=== PATIENT | male | born 1935 | race Caucasian/White ===

== ENCOUNTER 2022-02-10 19:14 | Inpatient (IN) | payer OTHER, MEDICARE ==
[2022-02-10 20:46] LABS: BASO % 0.2 % (0-2.0); HEMATOCRIT 25.8 % (35.4-49); HEMOGLOBIN 8.7 GM/dL (11.7-16.9); MCH 30.6 pg (25.7-33.7); MCHC 33.6 g/dl (32.0-35.9); MEAN PLT VOLUME 7.4 fl (7.5-11.1); MONO % 6.4 % (3.8-10.2); NEUT % 84.4 % (42.8-82.8); PLATELET COUNT 234 10^3/uL (134-434); RBC 2.84 M/mm3 (4.00-5.60); RDW 14.1 % (11.9-15.9); WHITE BLOOD COUNT 10.2 K/mm3 (4.0-10.0)
[2022-02-10 21:12] LABS: ALBUMIN 3.2 g/dl (3.4-5.0); CALCIUM 8.9 mg/dL (8.5-10.1)
[2022-02-10 21:13] LABS: BLOOD UREA NITROGEN 46.6 mg/dL (7-18); MAGNESIUM 2.2 mg/dL (1.8-2.4)
[2022-02-10 21:15] LABS: CREATININE 2.7 mg/dL (0.55-1.3); PHOSPHOROUS 3.8 mg/dL (2.5-4.9)
[2022-02-10 21:17] LABS: BILIRUBIN,TOTAL 0.2 mg/dL (0.2-1)
[2022-02-10] MEDS ORDERED: INSULIN REGULAR HUMAN 100 UNITS/ML *VIAL IVPUSH ONE (21:45)
[2022-02-10] MEDS ORDERED: CALCIUM GLUCONATE 10% - 1,000 MG/10 ML VIAL IVPB ONE (21:45)
[2022-02-10] MEDS ORDERED: SODIUM CHLORIDE 0.9% 500 ML INFUS.BAG IV ONE (21:46)
[2022-02-10] MEDS ORDERED: SODIUM ZIRCONIUM CYCLOSILICATE (LOKELMA) 5 GM PACKET PO ONE (21:49)
[2022-02-10] MEDS ORDERED: SODIUM ZIRCONIUM CYCLOSILICATE (LOKELMA) 5 GM PACKET ONE (22:13)
[2022-02-10] MEDS ORDERED: CALCIUM GLUCONATE 10% - 1,000 MG/10 ML VIAL ONE (22:13)
[2022-02-10] MEDS ORDERED: INSULIN REGULAR HUMAN 100 UNITS/ML *VIAL ONE (22:14)
[2022-02-10 22:18] LABS: EPI CELLS 13 /uL (0-25.1); HYALINE CASTS 2 /uL (0-3.1); URINE APPEARANCE CLOUDY; URINE BACTERIA 31 /uL (0-1359); URINE BILIRUBIN NEGATIVE (NEGATIVE); URINE COLOR YELLOW; URINE GLUCOSE (UA) TRACE (NEGATIVE); URINE KETONE NEGATIVE (NEGATIVE); URINE LEUK ESTERASE 1+ (NEGATIVE); URINE NITRITE NEGATIVE (NEGATIVE); URINE PROTEIN 2+ (NEGATIVE); URINE UROBILINOGEN 0.2 mg/dL (0.2-1.0); URINE WBC 131 /uL (0-25.8)
[2022-02-10] MEDS ORDERED: CEFTRIAXONE 1,000 MG in DEXTROSE 5%-WATER - 50 ML IVPB ONE (22:21)
[2022-02-10] MEDS ORDERED: CEFTRIAXONE 1 GM/50 ML BAG ONE (22:58)
[2022-02-10 23:23] LABS: URINE RBC 922 /uL (0-23.9)
[2022-02-11] MEDS ORDERED: INSULIN SLIDING SCALE (NOVOLOG) 1 VIAL SQ SCH (07:00)
[2022-02-11] MEDS: INSULIN SLIDING SCALE (NOVOLOG) 1 VIAL SQ SCH ×4 (08:04→21:55)
[2022-02-11] MEDS ORDERED: AZITHROMYCIN 250 MG TABLET ONE (08:33)
[2022-02-11] MEDS ORDERED: LOSARTAN POTASSIUM 50 MG TABLET ONE (08:33)
[2022-02-11] MEDS ORDERED: METOPROLOL TARTRATE 50 MG TABLET (FP) ONE (08:34)
[2022-02-11] MEDS ORDERED: ISOSORBIDE MONONITRATE 60 MG TAB.SR.24H (FP) PO ONE (08:34)
[2022-02-11] MEDS ORDERED: amLODIPine BESYLATE 10 MG TABLET (FP) ONE (08:34)
[2022-02-11] MEDS ORDERED: CHOLECALCIFEROL (VIT D3) 1,000 UNIT (25 MCG) TABLET ONE (08:35)
[2022-02-11] MEDS ORDERED: CLOPIDOGREL BISULFATE 75 MG TABLET (FP) ONE (08:35)
[2022-02-11] MEDS ORDERED: CEFTRIAXONE 1 GM/50 ML BAG ONE (08:36)
[2022-02-11] MEDS ORDERED: ASPIRIN 81 MG CHEWABLE TABLETS ONE (08:36)
[2022-02-11] MEDS ORDERED: AZITHROMYCIN 500 MG TABLET PO ONE (10:00)
[2022-02-11] MEDS: CEFTRIAXONE 1 GM in DEXTROSE 5%-WATER - 50 ML IVPB SCH (11:00)
[2022-02-11] MEDS: METOPROLOL TARTRATE 50 MG TABLET (FP) PO SCH ×2 (11:00→21:45)
[2022-02-11] MEDS: CHOLECALCIFEROL (VIT D3) 1,000 UNIT (25 MCG) TABLET PO SCH (11:00)
[2022-02-11] MEDS: ASPIRIN 81 MG CHEWABLE TABLETS PO SCH (11:00)
[2022-02-11] MEDS: LOSARTAN POTASSIUM 50 MG TABLET PO SCH (11:00)
[2022-02-11] MEDS: amLODIPine BESYLATE 10 MG TABLET (FP) PO SCH (11:00)
[2022-02-11] MEDS: CLOPIDOGREL BISULFATE 75 MG TABLET (FP) PO SCH (11:00)
[2022-02-11] MEDS: FINASTERIDE 5 MG TABLET (FP) PO SCH (11:00)
[2022-02-11] MEDS: ISOSORBIDE MONONITRATE 30 MG TAB.SR.24H (FP) PO SCH (11:00)
[2022-02-11] MEDS ORDERED: ENOXAPARIN NA (PORCINE) 40 MG/0.4 ML DISP.SYRIN SQ SCH (12:30)
[2022-02-11] MEDS ORDERED: ENOXAPARIN NA (PORCINE) 40 MG/0.4 ML DISP.SYRIN SQ ONE (12:49)
[2022-02-11] MEDS ORDERED: FERROUS SO4 325 MG TABLET (FP) ONE (12:49)
[2022-02-11] MEDS ORDERED: HEPARIN NA (PORCINE) 5,000 UNITS/ML 1ML VIAL ONE ×2 (13:12→21:46)
[2022-02-11] MEDS: FERROUS SO4 325 MG TABLET (FP) PO SCH (13:24)
[2022-02-11] MEDS: HEPARIN NA (PORCINE) 5,000 UNITS/ML 1ML VIAL SQ SCH ×2 (13:24→21:55)
[2022-02-11 13:56] LABS: BLOOD UREA NITROGEN 43.6 mg/dL (7-18); CALCIUM 9.3 mg/dL (8.5-10.1)
[2022-02-11 13:57] LABS: ALBUMIN 3.3 g/dl (3.4-5.0)
[2022-02-11 14:00] LABS: CREATININE 2.4 mg/dL (0.55-1.3)
[2022-02-11 14:01] LABS: BILIRUBIN,TOTAL 0.5 mg/dL (0.2-1)
[2022-02-11 14:02] LABS: TOT PROT 7.3 g/dl (6.4-8.2)
[2022-02-11] MEDS ORDERED: MIRTAZAPINE 15 MG TABLET (FP) ONE (21:46)
[2022-02-11] MEDS: MIRTAZAPINE 30 MG TABLET PO SCH (21:55)
[2022-02-12] MEDS: HEPARIN NA (PORCINE) 5,000 UNITS/ML 1ML VIAL SQ SCH ×3 (06:10→22:44)
[2022-02-12] MEDS: INSULIN SLIDING SCALE (NOVOLOG) 1 VIAL SQ SCH ×4 (06:11→22:44)
[2022-02-12 06:29] VITALS: BMI 27.3
[2022-02-12 07:30] LABS: BASO % 0.3 % (0-2.0); EOS % 1.9 % (0-4.5); HEMATOCRIT 24.7 % (35.4-49); HEMOGLOBIN 8.5 GM/dL (11.7-16.9); LYMPH % 10.2 % (8-40); MCH 31.1 pg (25.7-33.7); MCHC 34.6 g/dl (32.0-35.9); MEAN CELL VOLUME 89.7 fl (80-96); MEAN PLT VOLUME 7.5 fl (7.5-11.1); MONO % 11.1 % (3.8-10.2); NEUT % 76.5 % (42.8-82.8); PLATELET COUNT 216 10^3/uL (134-434); RBC 2.75 M/mm3 (4.00-5.60); RDW 13.9 % (11.9-15.9); WHITE BLOOD COUNT 6.7 K/mm3 (4.0-10.0)
[2022-02-12 07:42] LABS: ALBUMIN 3.2 g/dl (3.4-5.0); BLOOD UREA NITROGEN 41.8 mg/dL (7-18); CALCIUM 8.5 mg/dL (8.5-10.1); MAGNESIUM 2.2 mg/dL (1.8-2.4)
[2022-02-12 07:45] LABS: CREATININE 2.4 mg/dL (0.55-1.3); PHOSPHOROUS 3.3 mg/dL (2.5-4.9)
[2022-02-12 07:46] LABS: BILIRUBIN,TOTAL 0.4 mg/dL (0.2-1); TOT PROT 6.6 g/dl (6.4-8.2)
[2022-02-12] MEDS ORDERED: cefTRIAXone SODIUM 1 GM VIAL ONE (10:11)
[2022-02-12] MEDS ORDERED: DEXTROSE 5%-WATER - 50 ML IVPB ONE (10:12)
[2022-02-12] MEDS: CHOLECALCIFEROL (VIT D3) 1,000 UNIT (25 MCG) TABLET PO SCH (10:17)
[2022-02-12] MEDS: CLOPIDOGREL BISULFATE 75 MG TABLET (FP) PO SCH (10:17)
[2022-02-12] MEDS: FINASTERIDE 5 MG TABLET (FP) PO SCH (10:17)
[2022-02-12] MEDS: ASPIRIN 81 MG CHEWABLE TABLETS PO SCH (10:18)
[2022-02-12] MEDS: ISOSORBIDE MONONITRATE 30 MG TAB.SR.24H (FP) PO SCH (10:18)
[2022-02-12] MEDS: METOPROLOL TARTRATE 50 MG TABLET (FP) PO SCH ×2 (10:18→22:43)
[2022-02-12] MEDS: AZITHROMYCIN 250 MG TABLET PO SCH (10:18)
[2022-02-12] MEDS: FERROUS SO4 325 MG TABLET (FP) PO SCH (10:18)
[2022-02-12] MEDS: amLODIPine BESYLATE 10 MG TABLET (FP) PO SCH (10:18)
[2022-02-12] MEDS: CEFTRIAXONE 1 GM in DEXTROSE 5%-WATER - 50 ML IVPB SCH (10:20)
[2022-02-12] MEDS ORDERED: MIRTAZAPINE 15 MG TABLET (FP) ONE (22:36)
[2022-02-12] MEDS: MIRTAZAPINE 30 MG TABLET PO SCH (22:45)
[2022-02-13] MEDS: INSULIN SLIDING SCALE (NOVOLOG) 1 VIAL SQ SCH ×4 (06:10→22:03)
[2022-02-13] MEDS: HEPARIN NA (PORCINE) 5,000 UNITS/ML 1ML VIAL SQ SCH ×3 (06:35→22:03)
[2022-02-13 07:40] LABS: BASO % 0.5 % (0-2.0); EOS % 2.3 % (0-4.5); HEMATOCRIT 24.8 % (35.4-49); HEMOGLOBIN 8.3 GM/dL (11.7-16.9); LYMPH % 12.8 % (8-40); MCH 30.7 pg (25.7-33.7); MCHC 33.6 g/dl (32.0-35.9); MEAN CELL VOLUME 91.3 fl (80-96); MEAN PLT VOLUME 7.7 fl (7.5-11.1); MONO % 9.4 % (3.8-10.2); PLATELET COUNT 208 10^3/uL (134-434); RBC 2.71 M/mm3 (4.00-5.60); RDW 14.1 % (11.9-15.9); WHITE BLOOD COUNT 6.1 K/mm3 (4.0-10.0)
[2022-02-13 07:57] LABS: CALCIUM 8.6 mg/dL (8.5-10.1)
[2022-02-13 08:01] LABS: CREATININE 2.4 mg/dL (0.55-1.3)
[2022-02-13 08:02] LABS: BILIRUBIN,TOTAL 0.3 mg/dL (0.2-1); TOT PROT 6.7 g/dl (6.4-8.2)
[2022-02-13] MEDS ORDERED: DEXTROSE 5%-WATER - 50 ML IVPB ONE (09:45)
[2022-02-13] MEDS ORDERED: cefTRIAXone SODIUM 1 GM VIAL ONE (09:45)
[2022-02-13] MEDS: METOPROLOL TARTRATE 50 MG TABLET (FP) PO SCH ×2 (09:48→22:02)
[2022-02-13] MEDS: CLOPIDOGREL BISULFATE 75 MG TABLET (FP) PO SCH (09:48)
[2022-02-13] MEDS: AZITHROMYCIN 250 MG TABLET PO SCH (09:48)
[2022-02-13] MEDS: amLODIPine BESYLATE 10 MG TABLET (FP) PO SCH (09:48)
[2022-02-13] MEDS: ISOSORBIDE MONONITRATE 30 MG TAB.SR.24H (FP) PO SCH (09:48)
[2022-02-13] MEDS: CEFTRIAXONE 1 GM in DEXTROSE 5%-WATER - 50 ML IVPB SCH (09:48)
[2022-02-13] MEDS: CHOLECALCIFEROL (VIT D3) 1,000 UNIT (25 MCG) TABLET PO SCH (09:48)
[2022-02-13] MEDS: FERROUS SO4 325 MG TABLET (FP) PO SCH (09:48)
[2022-02-13] MEDS: FINASTERIDE 5 MG TABLET (FP) PO SCH (09:48)
[2022-02-13] MEDS: ASPIRIN 81 MG CHEWABLE TABLETS PO SCH (09:48)
[2022-02-13] MEDS ORDERED: MIRTAZAPINE 15 MG TABLET (FP) ONE (21:37)
[2022-02-13] MEDS: MIRTAZAPINE 30 MG TABLET PO SCH (22:03)
[2022-02-14] MEDS: INSULIN SLIDING SCALE (NOVOLOG) 1 VIAL SQ SCH ×4 (06:45→21:25)
[2022-02-14] MEDS: HEPARIN NA (PORCINE) 5,000 UNITS/ML 1ML VIAL SQ SCH ×3 (06:46→21:20)
[2022-02-14 08:15] LABS: BASO % 0.4 % (0-2.0); HEMATOCRIT 25.6 % (35.4-49); HEMOGLOBIN 8.9 GM/dL (11.7-16.9); LYMPH % 8.8 % (8-40); MCHC 34.6 g/dl (32.0-35.9); MEAN CELL VOLUME 89.6 fl (80-96); MEAN PLT VOLUME 7.4 fl (7.5-11.1); MONO % 10.3 % (3.8-10.2); NEUT % 79.5 % (42.8-82.8); PLATELET COUNT 222 10^3/uL (134-434); RBC 2.86 M/mm3 (4.00-5.60); RDW 13.8 % (11.9-15.9); WHITE BLOOD COUNT 6.9 K/mm3 (4.0-10.0)
[2022-02-14 08:40] LABS: CALCIUM 8.6 mg/dL (8.5-10.1)
[2022-02-14 08:41] LABS: ALBUMIN 3.1 g/dl (3.4-5.0); BLOOD UREA NITROGEN 44.4 mg/dL (7-18)
[2022-02-14 08:44] LABS: CREATININE 2.4 mg/dL (0.55-1.3)
[2022-02-14 08:45] LABS: BILIRUBIN,TOTAL 0.8 mg/dL (0.2-1); TOT PROT 6.8 g/dl (6.4-8.2)
[2022-02-14] MEDS ORDERED: ACETAMINOPHEN 325 MG TABLET (FP) PO PRN (09:25)
[2022-02-14] MEDS ORDERED: cefTRIAXone SODIUM 1 GM VIAL ONE (09:30)
[2022-02-14] MEDS ORDERED: DEXTROSE 5%-WATER - 50 ML IVPB ONE (09:30)
[2022-02-14] MEDS: FERROUS SO4 325 MG TABLET (FP) PO SCH (09:40)
[2022-02-14] MEDS: CHOLECALCIFEROL (VIT D3) 1,000 UNIT (25 MCG) TABLET PO SCH (09:40)
[2022-02-14] MEDS: ASPIRIN 81 MG CHEWABLE TABLETS PO SCH (09:41)
[2022-02-14] MEDS: FINASTERIDE 5 MG TABLET (FP) PO SCH (09:41)
[2022-02-14] MEDS: ISOSORBIDE MONONITRATE 30 MG TAB.SR.24H (FP) PO SCH (09:41)
[2022-02-14] MEDS: AZITHROMYCIN 250 MG TABLET PO SCH (09:41)
[2022-02-14] MEDS: CLOPIDOGREL BISULFATE 75 MG TABLET (FP) PO SCH (09:42)
[2022-02-14] MEDS: CEFTRIAXONE 1 GM in DEXTROSE 5%-WATER - 50 ML IVPB SCH (09:42)
[2022-02-14] MEDS: amLODIPine BESYLATE 10 MG TABLET (FP) PO SCH (09:42)
[2022-02-14] MEDS: LOSARTAN POTASSIUM 50 MG TABLET PO SCH (09:42)
[2022-02-14] MEDS: METOPROLOL TARTRATE 50 MG TABLET (FP) PO SCH ×2 (09:42→21:19)
[2022-02-14] MEDS: LIDOCAINE 5% TOPICAL PATCH TP SCH (09:52)
[2022-02-14 12:23] LABS: URIC ACID 6.9 mg/dL (2.6-7.2)
[2022-02-14] MEDS ORDERED: MIRTAZAPINE 15 MG TABLET (FP) ONE (21:06)
[2022-02-14] MEDS: MIRTAZAPINE 30 MG TABLET PO SCH (21:20)
[2022-02-14] MEDS: LIDOCAINE PATCH REMOVAL MC SCH (21:20)
[2022-02-15] MEDS: HEPARIN NA (PORCINE) 5,000 UNITS/ML 1ML VIAL SQ SCH ×3 (06:09→22:12)
[2022-02-15] MEDS: INSULIN SLIDING SCALE (NOVOLOG) 1 VIAL SQ SCH ×4 (06:19→22:12)
[2022-02-15 08:09] LABS: BASO % 0.3 % (0-2.0); EOS % 1.9 % (0-4.5); HEMATOCRIT 22.8 % (35.4-49); HEMOGLOBIN 7.8 GM/dL (11.7-16.9); LYMPH % 13.8 % (8-40); MCH 30.7 pg (25.7-33.7); MCHC 33.9 g/dl (32.0-35.9); MEAN CELL VOLUME 90.4 fl (80-96); MEAN PLT VOLUME 7.5 fl (7.5-11.1); PLATELET COUNT 210 10^3/uL (134-434); RBC 2.53 M/mm3 (4.00-5.60); RDW 13.7 % (11.9-15.9); WHITE BLOOD COUNT 5.8 K/mm3 (4.0-10.0)
[2022-02-15 08:16] LABS: ALBUMIN 2.8 g/dl (3.4-5.0); BLOOD UREA NITROGEN 48.6 mg/dL (7-18); CALCIUM 8.4 mg/dL (8.5-10.1)
[2022-02-15 08:21] LABS: BILIRUBIN,TOTAL 0.3 mg/dL (0.2-1)
[2022-02-15 08:22] LABS: CREATININE 2.7 mg/dL (0.55-1.3)
[2022-02-15] MEDS ORDERED: cefTRIAXone SODIUM 1 GM VIAL ONE (09:04)
[2022-02-15] MEDS ORDERED: DEXTROSE 5%-WATER - 50 ML IVPB ONE (09:04)
[2022-02-15] MEDS: amLODIPine BESYLATE 10 MG TABLET (FP) PO SCH (09:16)
[2022-02-15] MEDS: ISOSORBIDE MONONITRATE 30 MG TAB.SR.24H (FP) PO SCH (09:16)
[2022-02-15] MEDS: FERROUS SO4 325 MG TABLET (FP) PO SCH (09:17)
[2022-02-15] MEDS: LOSARTAN POTASSIUM 50 MG TABLET PO SCH (09:17)
[2022-02-15] MEDS: METOPROLOL TARTRATE 50 MG TABLET (FP) PO SCH ×2 (09:17→22:12)
[2022-02-15] MEDS: CHOLECALCIFEROL (VIT D3) 1,000 UNIT (25 MCG) TABLET PO SCH (09:17)
[2022-02-15] MEDS: FINASTERIDE 5 MG TABLET (FP) PO SCH (09:17)
[2022-02-15] MEDS: CLOPIDOGREL BISULFATE 75 MG TABLET (FP) PO SCH (09:18)
[2022-02-15] MEDS: CEFTRIAXONE 1 GM in DEXTROSE 5%-WATER - 50 ML IVPB SCH (09:18)
[2022-02-15] MEDS: ASPIRIN 81 MG CHEWABLE TABLETS PO SCH (09:18)
[2022-02-15] MEDS: LIDOCAINE 5% TOPICAL PATCH TP SCH (09:36)
[2022-02-15] MEDS ORDERED: ALPRAZolam 0.25 MG TABLET PO PRN (10:00)
[2022-02-15] MEDS ORDERED: MIRTAZAPINE 15 MG TABLET (FP) ONE (21:48)
[2022-02-15] MEDS: MIRTAZAPINE 30 MG TABLET PO SCH (22:12)
[2022-02-15] MEDS: LIDOCAINE PATCH REMOVAL MC SCH (22:12)
[2022-02-16] MEDS ORDERED: ACETAMINOPHEN 325 MG TABLET (FP) PO PRN (00:25)
[2022-02-16] MEDS ORDERED: ALPRAZolam 0.25 MG TABLET PO PRN (00:25)
[2022-02-16] MEDS: LIDOCAINE PATCH REMOVAL MC SCH ×2 (03:41→21:27)
[2022-02-16] MEDS: HEPARIN NA (PORCINE) 5,000 UNITS/ML 1ML VIAL SQ SCH ×3 (06:02→21:27)
[2022-02-16] MEDS: INSULIN SLIDING SCALE (NOVOLOG) 1 VIAL SQ SCH ×4 (06:03→21:28)
[2022-02-16 08:03] LABS: BASO % 0.7 % (0-2.0); EOS % 3.7 % (0-4.5); HEMATOCRIT 22.8 % (35.4-49); HEMOGLOBIN 7.6 GM/dL (11.7-16.9); MCH 30.4 pg (25.7-33.7); MCHC 33.4 g/dl (32.0-35.9); MEAN CELL VOLUME 90.9 fl (80-96); MEAN PLT VOLUME 7.6 fl (7.5-11.1); MONO % 12.3 % (3.8-10.2); NEUT % 69.3 % (42.8-82.8); PLATELET COUNT 237 10^3/uL (134-434); RDW 13.7 % (11.9-15.9); WHITE BLOOD COUNT 5.7 K/mm3 (4.0-10.0)
[2022-02-16 08:24] LABS: CALCIUM 8.6 mg/dL (8.5-10.1); MAGNESIUM 2.4 mg/dL (1.8-2.4)
[2022-02-16 08:28] LABS: CREATININE 2.8 mg/dL (0.55-1.3); PHOSPHOROUS 5.8 mg/dL (2.5-4.9)
[2022-02-16] MEDS ORDERED: DEXTROSE 5%-WATER - 50 ML IVPB ONE (09:15)
[2022-02-16] MEDS ORDERED: cefTRIAXone SODIUM 1 GM VIAL ONE (09:15)
[2022-02-16] MEDS: CHOLECALCIFEROL (VIT D3) 1,000 UNIT (25 MCG) TABLET PO SCH (09:55)
[2022-02-16] MEDS: CLOPIDOGREL BISULFATE 75 MG TABLET (FP) PO SCH (09:55)
[2022-02-16] MEDS: LOSARTAN POTASSIUM 50 MG TABLET PO SCH (09:56)
[2022-02-16] MEDS: METOPROLOL TARTRATE 50 MG TABLET (FP) PO SCH ×2 (09:56→21:28)
[2022-02-16] MEDS: FINASTERIDE 5 MG TABLET (FP) PO SCH (09:57)
[2022-02-16] MEDS: ISOSORBIDE MONONITRATE 30 MG TAB.SR.24H (FP) PO SCH (09:57)
[2022-02-16] MEDS: FERROUS SO4 325 MG TABLET (FP) PO SCH (09:57)
[2022-02-16] MEDS: amLODIPine BESYLATE 10 MG TABLET (FP) PO SCH (09:57)
[2022-02-16] MEDS: ASPIRIN 81 MG CHEWABLE TABLETS PO SCH (09:58)
[2022-02-16] MEDS: LIDOCAINE 5% TOPICAL PATCH TP SCH (09:58)
[2022-02-16] MEDS: CEFTRIAXONE 1 GM in DEXTROSE 5%-WATER - 50 ML IVPB SCH (09:58)
[2022-02-16] MEDS ORDERED: INSULIN (NOVOLOG) ASPART 100 UNITS/ML 10ML VIAL ONE (13:12)
[2022-02-16] MEDS ORDERED: SODIUM CHLORIDE 0.45% 1,000 ML IV SCH (15:15)
[2022-02-16] MEDS ORDERED: MIRTAZAPINE 15 MG TABLET (FP) ONE (21:21)
[2022-02-16] MEDS ORDERED: MIRTAZAPINE 30 MG TABLET PO SCH (22:00)
[2022-02-16] MEDS ORDERED: LIDOCAINE PATCH REMOVAL MC SCH (22:00)
[2022-02-17] MEDS: HEPARIN NA (PORCINE) 5,000 UNITS/ML 1ML VIAL SQ SCH ×2 (05:35→15:39)
[2022-02-17] MEDS: INSULIN SLIDING SCALE (NOVOLOG) 1 VIAL SQ SCH ×3 (06:02→17:54)
[2022-02-17 08:34] LABS: BASO % 0.6 % (0-2.0); HEMATOCRIT 21.6 % (35.4-49); HEMOGLOBIN 7.4 GM/dL (11.7-16.9); LYMPH % 15.8 % (8-40); MCH 30.8 pg (25.7-33.7); MCHC 34.1 g/dl (32.0-35.9); MEAN CELL VOLUME 90.2 fl (80-96); MONO % 11.9 % (3.8-10.2); NEUT % 67.7 % (42.8-82.8); PLATELET COUNT 227 10^3/uL (134-434); WHITE BLOOD COUNT 5.1 K/mm3 (4.0-10.0)
[2022-02-17 08:59] LABS: CALCIUM 8.2 mg/dL (8.5-10.1)
[2022-02-17 09:00] LABS: BLOOD UREA NITROGEN 58.8 mg/dL (7-18); MAGNESIUM 2.4 mg/dL (1.8-2.4)
[2022-02-17 09:03] LABS: CREATININE 2.8 mg/dL (0.55-1.3); PHOSPHOROUS 5.4 mg/dL (2.5-4.9)
[2022-02-17] MEDS ORDERED: cefTRIAXone SODIUM 1 GM VIAL ONE (09:15)
[2022-02-17] MEDS: ASPIRIN 81 MG CHEWABLE TABLETS PO SCH (10:30)
[2022-02-17] MEDS: ISOSORBIDE MONONITRATE 30 MG TAB.SR.24H (FP) PO SCH (10:30)
[2022-02-17] MEDS: CLOPIDOGREL BISULFATE 75 MG TABLET (FP) PO SCH (10:31)
[2022-02-17] MEDS: FERROUS SO4 325 MG TABLET (FP) PO SCH (10:31)
[2022-02-17] MEDS: FINASTERIDE 5 MG TABLET (FP) PO SCH (10:31)
[2022-02-17] MEDS: CHOLECALCIFEROL (VIT D3) 1,000 UNIT (25 MCG) TABLET PO SCH (10:31)
[2022-02-17] MEDS: LIDOCAINE 5% TOPICAL PATCH TP SCH (10:31)
[2022-02-17] MEDS: CEFTRIAXONE 1 GM in DEXTROSE 5%-WATER - 50 ML IVPB SCH (10:40)
[2022-02-17] MEDS: LOSARTAN POTASSIUM 50 MG TABLET PO SCH (12:56)
[2022-02-17] MEDS: METOPROLOL TARTRATE 50 MG TABLET (FP) PO SCH (12:56)
[2022-02-17] MEDS: amLODIPine BESYLATE 10 MG TABLET (FP) PO SCH (12:56)
[2022-02-17 15:33] VITALS: BP 128/61; PULSE 61; TEMP 97.6
== END 2022-02-17 18:41 | disposition home health service (06) | DRG 194 ==
LOC: JER 19:14 → JERBED 23:13 → OBSVTOIN 02-11 00:26 → J4S 02-12 01:02 → J8W 02-16 00:23
PROVIDERS: ADMIT Internal Medicine
DX: J18.9 Pneumonia, unspecified organism (principal); N17.9 Acute kidney failure, unspecified; N39.0 Urinary tract infection, site not specified; I25.10 Atherosclerotic heart disease of native coronary artery without angina pectoris; E11.9 Type 2 diabetes mellitus without complications; Z95.1 Presence of aortocoronary bypass graft; E87.5 Hyperkalemia; R55 Syncope and collapse; I45.10 Unspecified right bundle-branch block; I44.4 Left anterior fascicular block; D64.9 Anemia, unspecified; R33.9 Retention of urine, unspecified; N40.1 Benign prostatic hyperplasia with lower urinary tract symptoms; Z79.84 Long term (current) use of oral hypoglycemic drugs; I12.9 Hypertensive chronic kidney disease with stage 1 through stage 4 chronic kidney disease, or unspecified chronic kidney disease; E11.22 Type 2 diabetes mellitus with diabetic chronic kidney disease; N18.9 Chronic kidney disease, unspecified; R31.9 Hematuria, unspecified; F32.A Depression, unspecified; F41.9 Anxiety disorder, unspecified; M25.522 Pain in left elbow; W19.XXXA Unspecified fall, initial encounter; Y93.89 Activity, other specified; Y92.230 Patient room in hospital as the place of occurrence of the external cause; Y99.8 Other external cause status
CPT/HCPCS: 36415; 70450-TC; 71045-TC-FY; 72125-TC; 72170-TC-FY; 73070-TC-LT-FY; 73200-TC-RT; 76775-TC; 76856-TC; 80048; 80053; 81003; 82533; 82550; 82570; 82728; 82962; 83036; 83540; 83550; 83735; 84100; 84133; 84300; 84443; 84484; 84550; 85025; 87086; 93005; 93010; 93306-TC; 93880-TC; 97116-GP; 97161-GP; 99285-25; C9803-CS; G0378; J1644; U0003; U0005

== ENCOUNTER 2022-02-26 10:15 | Inpatient (IN) | payer OTHER, MEDICARE ==
[2022-02-26] MEDS ORDERED: CALCIUM GLUCONATE 10% - 1,000 MG/10 ML VIAL IVPUSH ONE ×2 (11:04→13:49)
[2022-02-26] MEDS ORDERED: CALCIUM GLUCONATE 10% - 1,000 MG/10 ML VIAL ONE (11:06)
[2022-02-26] MEDS ORDERED: DEXTROSE 50%-WATER 25 GM/50 ML DISP.SYRIN ONE ×2 (11:09→13:51)
[2022-02-26] MEDS ORDERED: DEXTROSE 50%-WATER - 25 GM/50 ML VIAL IVPUSH ONE (11:26)
[2022-02-26 11:49] LABS: BASO % 0.4 % (0-2.0); EOS % 2.2 % (0-4.5); HEMATOCRIT 22.2 % (35.4-49); HEMOGLOBIN 7.4 GM/dL (11.7-16.9); LYMPH % 9.2 % (8-40); MCH 30.8 pg (25.7-33.7); MCHC 33.4 g/dl (32.0-35.9); MEAN CELL VOLUME 92.1 fl (80-96); MEAN PLT VOLUME 7.5 fl (7.5-11.1); MONO % 7.9 % (3.8-10.2); NEUT % 80.3 % (42.8-82.8); PLATELET COUNT 235 10^3/uL (134-434); RBC 2.41 M/mm3 (4.00-5.60); RDW 13.9 % (11.9-15.9); WHITE BLOOD COUNT 7.6 K/mm3 (4.0-10.0)
[2022-02-26 11:56] LABS: INR 1.09 (0.83-1.09); PROTHROMBIN TIME (PATIENT) 12.5 SEC (9.7-13.0)
[2022-02-26 12:13] LABS: CHLORIDE 108 mmol/L (98-107); SODIUM 135 mmol/L (136-145)
[2022-02-26 12:15] LABS: ALBUMIN 3.2 g/dl (3.4-5.0); BLOOD UREA NITROGEN 44.2 mg/dL (7-18); CALCIUM 8.4 mg/dL (8.5-10.1); CO2 21 mmol/L (21-32); GLUCOSE,RANDOM 56 mg/dL (74-106); MAGNESIUM 2.4 mg/dL (1.8-2.4)
[2022-02-26 12:18] LABS: CREATININE 2.7 mg/dL (0.55-1.3); PHOSPHOROUS 4.3 mg/dL (2.5-4.9); SGOT/AST 16 U/L (15-37); SGPT/ALT 18 U/L (13-61)
[2022-02-26 12:20] LABS: BILIRUBIN,TOTAL 0.3 mg/dL (0.2-1); TOT PROT 6.7 g/dl (6.4-8.2)
[2022-02-26 12:21] LABS: ALK PHOS 71 U/L (45-117)
[2022-02-26 12:23] LABS: N-TERMINAL BNP 1807.7 pg/ml (5-450)
[2022-02-26 12:30] LABS: ANION GAP 6 MMOL/L (8-16)
[2022-02-26] MEDS ORDERED: INSULIN REGULAR HUMAN 100 UNITS/ML *VIAL IVPUSH ONE (12:33)
[2022-02-26] MEDS ORDERED: DEXTROSE 50%-WATER - 25 GM/50 ML VIAL IVPUSH PRN (12:34)
[2022-02-26] MEDS ORDERED: SODIUM ZIRCONIUM CYCLOSILICATE (LOKELMA) 5 GM PACKET PO SCH (12:45)
[2022-02-26] MEDS ORDERED: SODIUM ZIRCONIUM CYCLOSILICATE (LOKELMA) 5 GM PACKET ONE ×2 (13:51→21:57)
[2022-02-26] MEDS ORDERED: SODIUM CHLORIDE 1,000 ML IV STA (17:20)
[2022-02-26] MEDS ORDERED: CEFTRIAXONE 1 GM in DEXTROSE 5%-WATER - 50 ML IVPB ONE (17:34)
[2022-02-26] MEDS ORDERED: AZITHROMYCIN IVPB 500 MG in DEXTROSE 5%-WATER - 250 ML IVPB ONE (17:35)
[2022-02-26] MEDS ORDERED: AZITHROMYCIN IVPB 500 MG/250 ML BAG IVPB ONE (17:51)
[2022-02-26] MEDS ORDERED: CEFTRIAXONE 1 GM/50 ML BAG ONE (17:51)
[2022-02-26 17:58] LABS: IRON SERUM 34 ug/dL (50-175); TOTAL IRON BINDING CAPACITY 316 ug/dL (250-450)
[2022-02-26 18:11] LABS: ALBUMIN 3.3 g/dl (3.4-5.0); CALCIUM 8.9 mg/dL (8.5-10.1)
[2022-02-26 18:12] LABS: BLOOD UREA NITROGEN 41.9 mg/dL (7-18)
[2022-02-26 18:14] LABS: CREATININE 2.6 mg/dL (0.55-1.3)
[2022-02-26 18:16] LABS: BILIRUBIN,TOTAL 0.4 mg/dL (0.2-1); TOT PROT 7.1 g/dl (6.4-8.2)
[2022-02-26 19:27] LABS: EPI CELLS 7 /uL (0-25.1); HYALINE CASTS 1 /uL (0-3.1); URINE APPEARANCE CLOUDY; URINE BACTERIA 11 /uL (0-1359); URINE BILIRUBIN NEGATIVE (NEGATIVE); URINE COLOR YELLOW; URINE GLUCOSE (UA) NEGATIVE (NEGATIVE); URINE KETONE NEGATIVE (NEGATIVE); URINE LEUK ESTERASE 1+ (NEGATIVE); URINE NITRITE NEGATIVE (NEGATIVE); URINE PROTEIN 2+ (NEGATIVE); URINE UROBILINOGEN 0.2 mg/dL (0.2-1.0); URINE WBC 338 /uL (0-25.8)
[2022-02-26 20:48] LABS: URINE RBC 526.2 /uL (0-23.9); YEAST MODERATE (NEGATIVE)
[2022-02-26] MEDS ORDERED: METOPROLOL TARTRATE 50 MG TABLET (FP) ONE (21:57)
[2022-02-26] MEDS ORDERED: MIRTAZAPINE 15 MG TABLET (FP) ONE (21:58)
[2022-02-26] MEDS ORDERED: SODIUM ZIRCONIUM CYCLOSILICATE (LOKELMA) 5 GM PACKET PO ONE (22:00)
[2022-02-26] MEDS: METOPROLOL TARTRATE 50 MG TABLET (FP) PO SCH (22:08)
[2022-02-26] MEDS: MIRTAZAPINE 30 MG TABLET PO SCH (22:08)
[2022-02-26] MEDS: ROSUVASTATIN CA 5 MG TABLET PO SCH (22:08)
[2022-02-26 23:45] LABS: HEMATOCRIT 26.9 % (35.4-49); HEMOGLOBIN 9.1 GM/dL (11.7-16.9); MCH 30.4 pg (25.7-33.7); MCHC 33.9 g/dl (32.0-35.9); MEAN CELL VOLUME 89.6 fl (80-96); MEAN PLT VOLUME 7.7 fl (7.5-11.1); PLATELET COUNT 270 10^3/uL (134-434); RDW 14.6 % (11.9-15.9); WHITE BLOOD COUNT 8.5 K/mm3 (4.0-10.0)
[2022-02-27 04:02] VITALS: BMI 28.6
[2022-02-27 07:06] LABS: HEMATOCRIT 27.2 % (35.4-49); HEMOGLOBIN 9.1 GM/dL (11.7-16.9); MCH 30.1 pg (25.7-33.7); MCHC 33.4 g/dl (32.0-35.9); MEAN CELL VOLUME 90.2 fl (80-96); MEAN PLT VOLUME 7.3 fl (7.5-11.1); PLATELET COUNT 250 10^3/uL (134-434); RBC 3.01 M/mm3 (4.00-5.60); RDW 14.6 % (11.9-15.9); WHITE BLOOD COUNT 8.1 K/mm3 (4.0-10.0)
[2022-02-27 07:31] LABS: CALCIUM 8.5 mg/dL (8.5-10.1)
[2022-02-27 07:32] LABS: ALBUMIN 2.8 g/dl (3.4-5.0); BLOOD UREA NITROGEN 36.4 mg/dL (7-18); MAGNESIUM 2.3 mg/dL (1.8-2.4)
[2022-02-27 07:35] LABS: CREATININE 2.3 mg/dL (0.55-1.3)
[2022-02-27 07:36] LABS: BILIRUBIN,TOTAL 0.4 mg/dL (0.2-1); TOT PROT 6.4 g/dl (6.4-8.2)
[2022-02-27] MEDS: METOPROLOL TARTRATE 50 MG TABLET (FP) PO SCH ×2 (09:25→21:43)
[2022-02-27] MEDS: TAMSULOSIN HCL 0.4 MG CAP PO SCH (09:25)
[2022-02-27] MEDS: CLOPIDOGREL BISULFATE 75 MG TABLET (FP) PO SCH (09:28)
[2022-02-27] MEDS: FINASTERIDE 5 MG TABLET (FP) PO SCH (09:28)
[2022-02-27] MEDS: SODIUM ZIRCONIUM CYCLOSILICATE (LOKELMA) 5 GM PACKET PO SCH (09:28)
[2022-02-27] MEDS: ISOSORBIDE MONONITRATE 30 MG TAB.SR.24H (FP) PO SCH (09:28)
[2022-02-27] MEDS: ASPIRIN 81 MG CHEWABLE TABLETS PO SCH (09:28)
[2022-02-27 13:29] LABS: HEMATOCRIT 27.3 % (35.4-49); HEMOGLOBIN 9.2 GM/dL (11.7-16.9); MCH 30.1 pg (25.7-33.7); MCHC 33.7 g/dl (32.0-35.9); MEAN CELL VOLUME 89.3 fl (80-96); MEAN PLT VOLUME 7.5 fl (7.5-11.1); PLATELET COUNT 260 10^3/uL (134-434); RBC 3.05 M/mm3 (4.00-5.60); RDW 14.8 % (11.9-15.9); WHITE BLOOD COUNT 7.9 K/mm3 (4.0-10.0)
[2022-02-27] MEDS ORDERED: MIRTAZAPINE 15 MG TABLET (FP) ONE (21:42)
[2022-02-27] MEDS: MIRTAZAPINE 30 MG TABLET PO SCH (21:43)
[2022-02-28] MEDS: FINASTERIDE 5 MG TABLET (FP) PO SCH (10:42)
[2022-02-28] MEDS: TAMSULOSIN HCL 0.4 MG CAP PO SCH (10:42)
[2022-02-28] MEDS: ISOSORBIDE MONONITRATE 30 MG TAB.SR.24H (FP) PO SCH (10:42)
[2022-02-28] MEDS: CLOPIDOGREL BISULFATE 75 MG TABLET (FP) PO SCH (10:42)
[2022-02-28] MEDS: ASPIRIN 81 MG CHEWABLE TABLETS PO SCH (10:42)
[2022-02-28] MEDS: METOPROLOL TARTRATE 50 MG TABLET (FP) PO SCH ×2 (10:42→22:09)
[2022-02-28] MEDS: SODIUM ZIRCONIUM CYCLOSILICATE (LOKELMA) 5 GM PACKET PO SCH (10:43)
[2022-02-28 12:58] LABS: BASO % 0.6 % (0-2.0); EOS % 3.2 % (0-4.5); HEMATOCRIT 26.1 % (35.4-49); HEMOGLOBIN 8.8 GM/dL (11.7-16.9); LYMPH % 8.8 % (8-40); MCH 30.2 pg (25.7-33.7); MCHC 33.7 g/dl (32.0-35.9); MEAN CELL VOLUME 89.7 fl (80-96); MEAN PLT VOLUME 7.5 fl (7.5-11.1); MONO % 8.3 % (3.8-10.2); NEUT % 79.1 % (42.8-82.8); PLATELET COUNT 249 10^3/uL (134-434); RBC 2.91 M/mm3 (4.00-5.60); RDW 14.5 % (11.9-15.9); WHITE BLOOD COUNT 6.5 K/mm3 (4.0-10.0)
[2022-02-28 13:16] LABS: ALBUMIN 2.8 g/dl (3.4-5.0); BLOOD UREA NITROGEN 34.5 mg/dL (7-18); CALCIUM 8.6 mg/dL (8.5-10.1)
[2022-02-28 13:19] LABS: CREATININE 2.5 mg/dL (0.55-1.3)
[2022-02-28 13:21] LABS: BILIRUBIN,TOTAL 0.3 mg/dL (0.2-1); TOT PROT 6.2 g/dl (6.4-8.2)
[2022-02-28] MEDS ORDERED: MIRTAZAPINE 15 MG TABLET (FP) ONE (22:03)
[2022-02-28] MEDS: MIRTAZAPINE 30 MG TABLET PO SCH (22:09)
[2022-03-01 07:43] LABS: BASO % 0.6 % (0-2.0); EOS % 3.8 % (0-4.5); HEMATOCRIT 24.5 % (35.4-49); HEMOGLOBIN 8.2 GM/dL (11.7-16.9); LYMPH % 14.1 % (8-40); MCH 29.9 pg (25.7-33.7); MCHC 33.5 g/dl (32.0-35.9); MEAN CELL VOLUME 89.1 fl (80-96); MEAN PLT VOLUME 7.5 fl (7.5-11.1); MONO % 12.2 % (3.8-10.2); NEUT % 69.3 % (42.8-82.8); PLATELET COUNT 226 10^3/uL (134-434); RBC 2.75 M/mm3 (4.00-5.60); RDW 14.5 % (11.9-15.9); WHITE BLOOD COUNT 5.9 K/mm3 (4.0-10.0)
[2022-03-01 07:59] LABS: ALBUMIN 2.6 g/dl (3.4-5.0); BLOOD UREA NITROGEN 36.6 mg/dL (7-18)
[2022-03-01 08:00] LABS: CALCIUM 8.4 mg/dL (8.5-10.1)
[2022-03-01 08:02] LABS: CREATININE 2.6 mg/dL (0.55-1.3)
[2022-03-01 08:03] LABS: BILIRUBIN,TOTAL 0.4 mg/dL (0.2-1)
[2022-03-01 08:04] LABS: TOT PROT 5.7 g/dl (6.4-8.2)
[2022-03-01] MEDS: TAMSULOSIN HCL 0.4 MG CAP PO SCH (09:32)
[2022-03-01] MEDS: FINASTERIDE 5 MG TABLET (FP) PO SCH (09:32)
[2022-03-01] MEDS: CLOPIDOGREL BISULFATE 75 MG TABLET (FP) PO SCH (09:32)
[2022-03-01] MEDS: ASPIRIN 81 MG CHEWABLE TABLETS PO SCH (09:32)
[2022-03-01] MEDS: ISOSORBIDE MONONITRATE 30 MG TAB.SR.24H (FP) PO SCH (09:32)
[2022-03-01] MEDS: SODIUM ZIRCONIUM CYCLOSILICATE (LOKELMA) 5 GM PACKET PO SCH (11:05)
[2022-03-01] MEDS: METOPROLOL TARTRATE 50 MG TABLET (FP) PO SCH ×2 (11:05→21:23)
[2022-03-01] MEDS ORDERED: MIRTAZAPINE 15 MG TABLET (FP) ONE (21:21)
[2022-03-01] MEDS: ROSUVASTATIN CA 5 MG TABLET PO SCH (21:23)
[2022-03-01] MEDS: MIRTAZAPINE 30 MG TABLET PO SCH (21:23)
[2022-03-02 07:22] LABS: EOS % 3.5 % (0-4.5); HEMATOCRIT 25.2 % (35.4-49); HEMOGLOBIN 8.5 GM/dL (11.7-16.9); LYMPH % 12.2 % (8-40); MCH 30.3 pg (25.7-33.7); MCHC 33.8 g/dl (32.0-35.9); MEAN CELL VOLUME 89.7 fl (80-96); MEAN PLT VOLUME 7.3 fl (7.5-11.1); MONO % 11.4 % (3.8-10.2); NEUT % 71.9 % (42.8-82.8); PLATELET COUNT 218 10^3/uL (134-434); RBC 2.81 M/mm3 (4.00-5.60); RDW 14.3 % (11.9-15.9); WHITE BLOOD COUNT 5.9 K/mm3 (4.0-10.0)
[2022-03-02] MEDS ORDERED: ONDANSETRON 4 MG/2 ML VIAL IVPUSH PRN (07:35)
[2022-03-02] MEDS ORDERED: ACETAMINOPHEN 325 MG TABLET (FP) PO PRN (07:35)
[2022-03-02] MEDS ORDERED: LIDOCAINE HCL/PF 2% SDV 5ML VIAL ONE (07:40)
[2022-03-02] MEDS ORDERED: PROPOFOL 20 ML ONE ×2 (07:40→07:44)
[2022-03-02] MEDS ORDERED: ETOMIDATE 20 MG/10 ML AMPUL IVPUSH ONE (07:40)
[2022-03-02 07:41] LABS: ALBUMIN 2.7 g/dl (3.4-5.0); BLOOD UREA NITROGEN 38.9 mg/dL (7-18); CALCIUM 8.1 mg/dL (8.5-10.1)
[2022-03-02 07:44] LABS: CREATININE 2.4 mg/dL (0.55-1.3)
[2022-03-02] MEDS ORDERED: LACTATED RINGERS SOLUTION 1,000 ML IV SCH (07:45)
[2022-03-02 07:46] LABS: BILIRUBIN,TOTAL 0.3 mg/dL (0.2-1); TOT PROT 6.1 g/dl (6.4-8.2)
[2022-03-02] MEDS ORDERED: LIDOCAINE HCL 2% JELLY 10 ML CARTRIDGE ONE (07:48)
[2022-03-02] MEDS ORDERED: LIDOCAINE HCL 2% JELLY 10 ML CARTRIDGE TP ONE (07:58)
[2022-03-02] MEDS: CLOPIDOGREL BISULFATE 75 MG TABLET (FP) PO SCH (09:36)
[2022-03-02] MEDS: METOPROLOL TARTRATE 50 MG TABLET (FP) PO SCH ×2 (09:36→22:00)
[2022-03-02] MEDS: TAMSULOSIN HCL 0.4 MG CAP PO SCH (09:36)
[2022-03-02] MEDS: FINASTERIDE 5 MG TABLET (FP) PO SCH (09:36)
[2022-03-02] MEDS: SODIUM ZIRCONIUM CYCLOSILICATE (LOKELMA) 5 GM PACKET PO SCH (09:37)
[2022-03-02] MEDS: ISOSORBIDE MONONITRATE 30 MG TAB.SR.24H (FP) PO SCH (09:37)
[2022-03-02] MEDS ORDERED: ASPIRIN 81 MG CHEWABLE TABLETS PO SCH (10:00)
[2022-03-02] MEDS ORDERED: cefTRIAXone SODIUM 1 GM VIAL ONE (11:32)
[2022-03-02] MEDS ORDERED: DEXTROSE 5%-WATER - 50 ML IVPB ONE (11:33)
[2022-03-02] MEDS: CEFTRIAXONE 1 GM in DEXTROSE 5%-WATER - 50 ML IVPB SCH (12:04)
[2022-03-02] MEDS ORDERED: SODIUM CHLORIDE 1,000 ML IV SCH (13:00)
[2022-03-02] MEDS ORDERED: MIRTAZAPINE 15 MG TABLET (FP) ONE (21:42)
[2022-03-02] MEDS: ROSUVASTATIN CA 5 MG TABLET PO SCH (21:59)
[2022-03-02] MEDS: MIRTAZAPINE 30 MG TABLET PO SCH (22:00)
[2022-03-03 07:34] LABS: HEMATOCRIT 24.7 % (35.4-49); HEMOGLOBIN 8.3 GM/dL (11.7-16.9); MCH 29.8 pg (25.7-33.7); MCHC 33.6 g/dl (32.0-35.9); MEAN CELL VOLUME 88.6 fl (80-96); MEAN PLT VOLUME 7.2 fl (7.5-11.1); PLATELET COUNT 226 10^3/uL (134-434); RBC 2.79 M/mm3 (4.00-5.60); RDW 14.8 % (11.9-15.9); WHITE BLOOD COUNT 5.5 K/mm3 (4.0-10.0)
[2022-03-03 07:44] LABS: CALCIUM 8.3 mg/dL (8.5-10.1)
[2022-03-03 07:45] LABS: BLOOD UREA NITROGEN 37.7 mg/dL (7-18)
[2022-03-03 07:48] LABS: CREATININE 2.2 mg/dL (0.55-1.3)
[2022-03-03] MEDS ORDERED: cefTRIAXone SODIUM 1 GM VIAL ONE (08:35)
[2022-03-03] MEDS ORDERED: DEXTROSE 5%-WATER - 50 ML IVPB ONE (08:35)
[2022-03-03] MEDS: CLOPIDOGREL BISULFATE 75 MG TABLET (FP) PO SCH (09:57)
[2022-03-03] MEDS: TAMSULOSIN HCL 0.4 MG CAP PO SCH (09:57)
[2022-03-03] MEDS: ISOSORBIDE MONONITRATE 30 MG TAB.SR.24H (FP) PO SCH (09:57)
[2022-03-03] MEDS: SODIUM ZIRCONIUM CYCLOSILICATE (LOKELMA) 5 GM PACKET PO SCH (09:58)
[2022-03-03] MEDS: METOPROLOL TARTRATE 50 MG TABLET (FP) PO SCH ×2 (09:58→21:28)
[2022-03-03] MEDS: CEFTRIAXONE 1 GM in DEXTROSE 5%-WATER - 50 ML IVPB SCH (09:58)
[2022-03-03] MEDS: FINASTERIDE 5 MG TABLET (FP) PO SCH (09:58)
[2022-03-03 16:08] LABS: SARS-CoV-2 NAA Not Detected (Not Detected)
[2022-03-03] MEDS ORDERED: MIRTAZAPINE 15 MG TABLET (FP) ONE (20:59)
[2022-03-03] MEDS: MIRTAZAPINE 30 MG TABLET PO SCH (21:27)
[2022-03-03] MEDS: ROSUVASTATIN CA 5 MG TABLET PO SCH (21:28)
[2022-03-04 05:59] VITALS: PULSE 81
[2022-03-04 07:53] LABS: MCH 30.2 pg (25.7-33.7); MCHC 33.4 g/dl (32.0-35.9); MEAN CELL VOLUME 90.5 fl (80-96); MEAN PLT VOLUME 7.4 fl (7.5-11.1); PLATELET COUNT 250 10^3/uL (134-434); RBC 2.98 M/mm3 (4.00-5.60); RDW 14.3 % (11.9-15.9); WHITE BLOOD COUNT 9.1 K/mm3 (4.0-10.0)
[2022-03-04 08:16] LABS: CALCIUM 8.4 mg/dL (8.5-10.1)
[2022-03-04 08:17] LABS: BLOOD UREA NITROGEN 44.9 mg/dL (7-18)
[2022-03-04 08:20] LABS: CREATININE 2.5 mg/dL (0.55-1.3)
[2022-03-04 08:27] VITALS: BP 155/69; TEMP 98.2
[2022-03-04] MEDS: TAMSULOSIN HCL 0.4 MG CAP PO SCH (09:00)
[2022-03-04] MEDS: SODIUM ZIRCONIUM CYCLOSILICATE (LOKELMA) 5 GM PACKET PO SCH (09:59)
[2022-03-04] MEDS: FINASTERIDE 5 MG TABLET (FP) PO SCH (09:59)
[2022-03-04] MEDS: METOPROLOL TARTRATE 50 MG TABLET (FP) PO SCH (09:59)
[2022-03-04] MEDS: ISOSORBIDE MONONITRATE 30 MG TAB.SR.24H (FP) PO SCH (09:59)
[2022-03-04] MEDS: CLOPIDOGREL BISULFATE 75 MG TABLET (FP) PO SCH (10:00)
[2022-03-05] MEDS ORDERED: CEFTRIAXONE 1 GM in DEXTROSE 5%-WATER - 50 ML IVPB ONE (08:00)
== END 2022-03-04 11:39 | disposition home or self-care (01) | DRG 687 ==
LOC: JER 10:15 → JERBED 17:08 → J4W 02-27 03:11 → JERBED 02-27 03:49 → J4W 02-27 03:51
PROVIDERS: ADMIT Internal Medicine
PROC: 30233N1 Transfusion of Nonautologous Red Blood Cells into Peripheral Vein, Percutaneous Approach (ICD-10-PCS; 2022-02-26)
PROC: 0TCB8ZZ Extirpation of Matter from Bladder, Via Natural or Artificial Opening Endoscopic (ICD-10-PCS; principal; 2022-03-02 07:30)
DX: D49.4 Neoplasm of unspecified behavior of bladder (principal); N17.9 Acute kidney failure, unspecified; D62 Acute posthemorrhagic anemia; E87.1 Hypo-osmolality and hyponatremia; N39.0 Urinary tract infection, site not specified; E87.5 Hyperkalemia; I25.10 Atherosclerotic heart disease of native coronary artery without angina pectoris; E88.81 Metabolic syndrome and other insulin resistance; I12.9 Hypertensive chronic kidney disease with stage 1 through stage 4 chronic kidney disease, or unspecified chronic kidney disease; E11.22 Type 2 diabetes mellitus with diabetic chronic kidney disease; N18.9 Chronic kidney disease, unspecified; N40.1 Benign prostatic hyperplasia with lower urinary tract symptoms; R33.8 Other retention of urine; F32.A Depression, unspecified; Z95.5 Presence of coronary angioplasty implant and graft; Z95.1 Presence of aortocoronary bypass graft
CPT/HCPCS: 36415; 36430; 71045-TC-FY; 76775-TC; 76856-TC; 80048; 80053; 81003; 82570; 82728; 82962; 83540; 83550; 83615; 83735; 83880; 84100; 84300; 84484; 85025; 85027; 85610; 85730; 86850; 86900; 86901; 86922; 93005; 93010; 94760; 97116-GP; 97162-GP; 99285-25; C9803-CS; P9058; U0003; U0005

== ENCOUNTER 2022-03-07 05:43 | Observation (INO) | payer OTHER, MEDICARE ==
[2022-03-07 07:47] LABS: EPI CELLS 6 /uL (0-25.1); HYALINE CASTS 1 /uL (0-3.1); PH,URINE 5.5 (5.0-8.0); URINE APPEARANCE TURBID; URINE BACTERIA 21 /uL (0-1359); URINE BILIRUBIN NEGATIVE (NEGATIVE); URINE COLOR RED; URINE GLUCOSE (UA) NEGATIVE (NEGATIVE); URINE KETONE NEGATIVE (NEGATIVE); URINE LEUK ESTERASE 3+ (NEGATIVE); URINE NITRITE NEGATIVE (NEGATIVE); URINE PROTEIN 3+ (NEGATIVE); URINE UROBILINOGEN 0.2 mg/dL (0.2-1.0); URINE WBC 9916 /uL (0-25.8)
[2022-03-07] MEDS ORDERED: CEFTRIAXONE 1,000 MG in DEXTROSE 5%-WATER - 50 ML IVPB ONE (08:05)
[2022-03-07] MEDS ORDERED: CEFTRIAXONE 1 GM/50 ML BAG ONE (08:36)
[2022-03-07 09:03] LABS: URINE RBC 11720.3 /uL (0-23.9); YEAST NEGATIVE (NEGATIVE)
[2022-03-07 09:39] LABS: BASO % 0.4 % (0-2.0); EOS % 0.1 % (0-4.5); HEMATOCRIT 25.1 % (35.4-49); HEMOGLOBIN 8.6 GM/dL (11.7-16.9); LYMPH % 2.6 % (8-40); MCH 30.8 pg (25.7-33.7); MCHC 34.3 g/dl (32.0-35.9); MEAN CELL VOLUME 89.8 fl (80-96); MEAN PLT VOLUME 7.4 fl (7.5-11.1); MONO % 9.8 % (3.8-10.2); NEUT % 87.1 % (42.8-82.8); PLATELET COUNT 218 10^3/uL (134-434); RBC 2.79 M/mm3 (4.00-5.60); RDW 14.3 % (11.9-15.9); WHITE BLOOD COUNT 9.3 K/mm3 (4.0-10.0)
[2022-03-07 09:44] LABS: ALBUMIN 3.1 g/dl (3.4-5.0); BLOOD UREA NITROGEN 59.5 mg/dL (7-18); CALCIUM 8.3 mg/dL (8.5-10.1)
[2022-03-07 09:48] LABS: CREATININE 3.5 mg/dL (0.55-1.3)
[2022-03-07 09:49] LABS: BILIRUBIN,TOTAL 0.6 mg/dL (0.2-1)
[2022-03-07 10:04] LABS: TOT PROT 6.6 g/dl (6.4-8.2)
[2022-03-07] MEDS: ISOSORBIDE MONONITRATE 30 MG TAB.SR.24H (FP) PO SCH (13:00)
[2022-03-07] MEDS: SODIUM ZIRCONIUM CYCLOSILICATE (LOKELMA) 5 GM PACKET PO SCH (13:00)
[2022-03-07] MEDS ORDERED: ISOSORBIDE MONONITRATE 60 MG TAB.SR.24H (FP) PO ONE (13:29)
[2022-03-07] MEDS ORDERED: SODIUM ZIRCONIUM CYCLOSILICATE (LOKELMA) 5 GM PACKET ONE (13:29)
[2022-03-07 15:05] VITALS: BMI 28.8
[2022-03-07 16:10] LABS: BLOOD UREA NITROGEN 57.1 mg/dL (7-18); CALCIUM 8.1 mg/dL (8.5-10.1); CREATININE 3.3 mg/dL (0.55-1.3)
[2022-03-07] MEDS: INSULIN SLIDING SCALE (NOVOLOG) 1 VIAL SQ SCH ×2 (16:59→21:42)
[2022-03-07] MEDS: METOPROLOL TARTRATE 50 MG TABLET (FP) PO SCH (22:20)
[2022-03-08] MEDS: INSULIN SLIDING SCALE (NOVOLOG) 1 VIAL SQ SCH ×4 (06:48→22:12)
[2022-03-08 08:28] LABS: HEMATOCRIT 22.1 % (35.4-49); HEMOGLOBIN 7.4 GM/dL (11.7-16.9); MCH 30.2 pg (25.7-33.7); MCHC 33.6 g/dl (32.0-35.9); MEAN PLT VOLUME 7.6 fl (7.5-11.1); PLATELET COUNT 207 10^3/uL (134-434); RBC 2.45 M/mm3 (4.00-5.60); RDW 13.9 % (11.9-15.9); WHITE BLOOD COUNT 6.2 K/mm3 (4.0-10.0)
[2022-03-08 08:48] LABS: CALCIUM 8.3 mg/dL (8.5-10.1)
[2022-03-08 08:49] LABS: BLOOD UREA NITROGEN 56.6 mg/dL (7-18)
[2022-03-08 08:52] LABS: CREATININE 3.1 mg/dL (0.55-1.3)
[2022-03-08] MEDS: TAMSULOSIN HCL 0.4 MG CAP PO SCH (11:48)
[2022-03-08] MEDS: METOPROLOL TARTRATE 50 MG TABLET (FP) PO SCH ×2 (11:48→22:20)
[2022-03-08] MEDS: ISOSORBIDE MONONITRATE 30 MG TAB.SR.24H (FP) PO SCH (11:49)
[2022-03-08] MEDS: SODIUM ZIRCONIUM CYCLOSILICATE (LOKELMA) 5 GM PACKET PO SCH (12:03)
[2022-03-08] MEDS: CLOPIDOGREL BISULFATE 75 MG TABLET (FP) PO SCH (12:16)
[2022-03-08 19:54] LABS: HEMATOCRIT 24.1 % (35.4-49); HEMOGLOBIN 7.9 GM/dL (11.7-16.9); MCH 29.9 pg (25.7-33.7); MEAN CELL VOLUME 90.4 fl (80-96); MEAN PLT VOLUME 7.4 fl (7.5-11.1); PLATELET COUNT 195 10^3/uL (134-434); RBC 2.66 M/mm3 (4.00-5.60); RDW 13.9 % (11.9-15.9); WHITE BLOOD COUNT 5.9 K/mm3 (4.0-10.0)
[2022-03-08] MEDS: MIRTAZAPINE 30 MG TABLET PO SCH (22:20)
[2022-03-08] MEDS: ROSUVASTATIN CA 5 MG TABLET PO SCH (22:20)
[2022-03-09] MEDS: INSULIN SLIDING SCALE (NOVOLOG) 1 VIAL SQ SCH ×4 (06:23→22:26)
[2022-03-09 08:09] LABS: HEMATOCRIT 25.2 % (35.4-49); HEMOGLOBIN 8.5 GM/dL (11.7-16.9); MCH 30.4 pg (25.7-33.7); MCHC 33.8 g/dl (32.0-35.9); MEAN CELL VOLUME 89.9 fl (80-96); MEAN PLT VOLUME 7.7 fl (7.5-11.1); PLATELET COUNT 199 10^3/uL (134-434); RDW 13.8 % (11.9-15.9); WHITE BLOOD COUNT 6.2 K/mm3 (4.0-10.0)
[2022-03-09 08:39] LABS: CALCIUM 8.3 mg/dL (8.5-10.1)
[2022-03-09 08:40] LABS: BLOOD UREA NITROGEN 54.3 mg/dL (7-18)
[2022-03-09 08:42] LABS: CREATININE 2.7 mg/dL (0.55-1.3)
[2022-03-09] MEDS: TAMSULOSIN HCL 0.4 MG CAP PO SCH (09:10)
[2022-03-09] MEDS: ISOSORBIDE MONONITRATE 30 MG TAB.SR.24H (FP) PO SCH (09:39)
[2022-03-09] MEDS: CLOPIDOGREL BISULFATE 75 MG TABLET (FP) PO SCH (09:39)
[2022-03-09] MEDS: SODIUM ZIRCONIUM CYCLOSILICATE (LOKELMA) 5 GM PACKET PO SCH (09:40)
[2022-03-09] MEDS: METOPROLOL TARTRATE 50 MG TABLET (FP) PO SCH ×2 (09:40→22:29)
[2022-03-09 14:33] LABS: EPI CELLS 31 /uL (0-25.1); HYALINE CASTS 2 /uL (0-3.1); PH,URINE 5.5 (5.0-8.0); URINE APPEARANCE TURBID; URINE BACTERIA 116 /uL (0-1359); URINE BILIRUBIN NEGATIVE (NEGATIVE); URINE COLOR ORANGE; URINE GLUCOSE (UA) 1+ (NEGATIVE); URINE KETONE NEGATIVE (NEGATIVE); URINE LEUK ESTERASE 3+ (NEGATIVE); URINE NITRITE NEGATIVE (NEGATIVE); URINE PROTEIN 2+ (NEGATIVE); URINE UROBILINOGEN 0.2 mg/dL (0.2-1.0); URINE WBC 5852 /uL (0-25.8)
[2022-03-09 15:09] LABS: URINE RBC 1677 /uL (0-23.9); YEAST PRESENT (NEGATIVE)
[2022-03-09 15:17] LABS: HEMATOCRIT 23.5 % (35.4-49); HEMOGLOBIN 7.9 GM/dL (11.7-16.9); MCH 30.3 pg (25.7-33.7); MCHC 33.7 g/dl (32.0-35.9); MEAN CELL VOLUME 89.8 fl (80-96); MEAN PLT VOLUME 7.2 fl (7.5-11.1); PLATELET COUNT 207 10^3/uL (134-434); RBC 2.62 M/mm3 (4.00-5.60); WHITE BLOOD COUNT 5.7 K/mm3 (4.0-10.0)
[2022-03-09] MEDS: ROSUVASTATIN CA 5 MG TABLET PO SCH (22:21)
[2022-03-09] MEDS: MIRTAZAPINE 30 MG TABLET PO SCH (22:21)
[2022-03-10] MEDS: INSULIN SLIDING SCALE (NOVOLOG) 1 VIAL SQ SCH (06:23)
[2022-03-10 06:59] VITALS: BP 169/56; PULSE 64; TEMP 98.2
[2022-03-10] MEDS: TAMSULOSIN HCL 0.4 MG CAP PO SCH (08:53)
== END 2022-03-10 09:27 | disposition home or self-care (01) ==
LOC: JER 05:43 → JERBED 11:08 → J5S 14:10
PROVIDERS: ADMIT Internal Medicine
PROC: 0T2BX0Z Change Drainage Device in Bladder, External Approach (ICD-10-PCS; principal; 2022-03-07)
PROC: 30233N1 Transfusion of Nonautologous Red Blood Cells into Peripheral Vein, Percutaneous Approach (ICD-10-PCS; 2022-03-07)
PROC: 3E03329 Introduction of Other Anti-infective into Peripheral Vein, Percutaneous Approach (ICD-10-PCS; 2022-03-07)
DX: N39.0 Urinary tract infection, site not specified (principal); E11.22 Type 2 diabetes mellitus with diabetic chronic kidney disease; I12.9 Hypertensive chronic kidney disease with stage 1 through stage 4 chronic kidney disease, or unspecified chronic kidney disease; N18.9 Chronic kidney disease, unspecified; N17.9 Acute kidney failure, unspecified; T83.098A Other mechanical complication of other urinary catheter, initial encounter; Y73.1 Therapeutic (nonsurgical) and rehabilitative gastroenterology and urology devices associated with adverse incidents; Y92.099 Unspecified place in other non-institutional residence as the place of occurrence of the external cause; N40.1 Benign prostatic hyperplasia with lower urinary tract symptoms; I10 Essential (primary) hypertension; I25.10 Atherosclerotic heart disease of native coronary artery without angina pectoris; E78.2 Mixed hyperlipidemia; F32.A Depression, unspecified; Z86.718 Personal history of other venous thrombosis and embolism; Z95.1 Presence of aortocoronary bypass graft; Z88.4 Allergy status to anesthetic agent; Z87.891 Personal history of nicotine dependence; D64.9 Anemia, unspecified; E87.6 Hypokalemia; D49.4 Neoplasm of unspecified behavior of bladder; R31.0 Gross hematuria
CPT/HCPCS: 36415; 36430; 36511; 51702; 80048; 80053; 81003; 82962; 85025; 85027; 86850; 86900; 86901; 86922; 87077; 87086; 87186; 96365; 97116-GP; 97162-GP; 99285-25; C9803-CS; G0378; P9016; P9058; U0003; U0005

== ENCOUNTER 2022-03-22 05:43 | Inpatient (IN) | payer OTHER, MEDICARE ==
[2022-03-22] MEDS ORDERED: ASPIRIN 81 MG CHEWABLE TABLETS PO ONE (05:57)
[2022-03-22] MEDS ORDERED: ASPIRIN 81 MG CHEWABLE TABLETS ONE (06:04)
[2022-03-22 06:27] LABS: BASO % 0.4 % (0-2.0); EOS % 0.7 % (0-4.5); HEMATOCRIT 30.5 % (35.4-49); HEMOGLOBIN 10.2 GM/dL (11.7-16.9); LYMPH % 9.5 % (8-40); MCH 29.5 pg (25.7-33.7); MCHC 33.3 g/dl (32.0-35.9); MEAN CELL VOLUME 88.6 fl (80-96); MEAN PLT VOLUME 7.5 fl (7.5-11.1); MONO % 8.6 % (3.8-10.2); NEUT % 80.8 % (42.8-82.8); PLATELET COUNT 290 10^3/uL (134-434); RBC 3.44 M/mm3 (4.00-5.60); RDW 13.9 % (11.9-15.9); WHITE BLOOD COUNT 7.4 K/mm3 (4.0-10.0)
[2022-03-22 06:35] LABS: INR 1.15 (0.83-1.09); PROTHROMBIN TIME (PATIENT) 13.3 SEC (9.7-13.0)
[2022-03-22 06:38] LABS: ACTIVATED PTT 26.4 SECONDS (25.2-36.5)
[2022-03-22 06:56] LABS: CALCIUM 8.9 mg/dL (8.5-10.1)
[2022-03-22 06:57] LABS: ALBUMIN 2.9 g/dl (3.4-5.0); BLOOD UREA NITROGEN 42.8 mg/dL (7-18); MAGNESIUM 2.2 mg/dL (1.8-2.4)
[2022-03-22 07:00] LABS: CREATININE 3.3 mg/dL (0.55-1.3)
[2022-03-22 07:01] LABS: TOT PROT 6.8 g/dl (6.4-8.2)
[2022-03-22 07:02] LABS: BILIRUBIN,TOTAL 0.4 mg/dL (0.2-1)
[2022-03-22] MEDS ORDERED: CLOPIDOGREL BISULFATE 75 MG TABLET (FP) PO SCH (11:15)
[2022-03-22] MEDS ORDERED: ASPIRIN COATED 81 MG TABLET.EC PO SCH (11:15)
[2022-03-22] MEDS ORDERED: ISOSORBIDE MONONITRATE 30 MG TAB.SR.24H (FP) PO SCH (11:15)
[2022-03-22] MEDS ORDERED: SODIUM CHLORIDE 1,000 ML IV SCH ×2 (13:00→23:27)
[2022-03-22] MEDS ORDERED: HEPARIN NA (PORCINE) 5,000 UNITS/ML 1ML VIAL SQ SCH (14:00)
[2022-03-22] MEDS ORDERED: METOPROLOL TARTRATE 25 MG TABLET (FP) ONE (15:15)
[2022-03-22] MEDS ORDERED: ISOSORBIDE MONONITRATE 30 MG TAB.SR.24H (FP) PO ONE (15:15)
[2022-03-22] MEDS ORDERED: METOPROLOL TARTRATE 50 MG TABLET (FP) ONE (15:15)
[2022-03-22] MEDS: INSULIN SLIDING SCALE (NOVOLOG) 1 VIAL SQ SCH ×3 (15:21→22:15)
[2022-03-22] MEDS: METOPROLOL TARTRATE 25 MG TABLET (FP) PO SCH (15:26)
[2022-03-22] MEDS ORDERED: ROSUVASTATIN CA 5 MG TABLET PO SCH (22:00)
[2022-03-22] MEDS ORDERED: MIRTAZAPINE 30 MG TABLET PO SCH (22:00)
[2022-03-22] MEDS: CHLORHEXIDINE GLUCONATE 4% CLEANSER FOR DECOLONIZATION TP SCH (23:16)
[2022-03-23] MEDS: INSULIN SLIDING SCALE (NOVOLOG) 1 VIAL SQ SCH ×4 (06:23→21:51)
[2022-03-23] MEDS: MUPIROCIN 2% TOPICAL OINTMENT FOR DECOLONIZATION NS SCH ×3 (07:00→21:50)
[2022-03-23 08:02] LABS: BASO % 0.5 % (0-2.0); EOS % 1.8 % (0-4.5); HEMATOCRIT 32.8 % (35.4-49); HEMOGLOBIN 10.8 GM/dL (11.7-16.9); LYMPH % 10.9 % (8-40); MCH 29.3 pg (25.7-33.7); MEAN CELL VOLUME 88.8 fl (80-96); MEAN PLT VOLUME 7.5 fl (7.5-11.1); MONO % 7.2 % (3.8-10.2); NEUT % 79.6 % (42.8-82.8); PLATELET COUNT 283 10^3/uL (134-434); RDW 13.9 % (11.9-15.9); WHITE BLOOD COUNT 7.2 K/mm3 (4.0-10.0)
[2022-03-23 08:06] LABS: ALBUMIN 2.8 g/dl (3.4-5.0); BLOOD UREA NITROGEN 41.7 mg/dL (7-18); CALCIUM 8.9 mg/dL (8.5-10.1); MAGNESIUM 2.3 mg/dL (1.8-2.4)
[2022-03-23 08:09] LABS: CREATININE 2.8 mg/dL (0.55-1.3); PHOSPHOROUS 4.2 mg/dL (2.5-4.9)
[2022-03-23 08:11] LABS: BILIRUBIN,TOTAL 0.4 mg/dL (0.2-1); TOT PROT 6.6 g/dl (6.4-8.2)
[2022-03-23] MEDS: TAMSULOSIN HCL 0.4 MG CAP PO SCH (08:18)
[2022-03-23] MEDS ORDERED: TAMSULOSIN HCL 0.4 MG CAP PO SCH (08:30)
[2022-03-23] MEDS: ISOSORBIDE MONONITRATE 30 MG TAB.SR.24H (FP) PO SCH (09:39)
[2022-03-23] MEDS: METOPROLOL TARTRATE 25 MG TABLET (FP) PO SCH ×2 (09:39→21:50)
[2022-03-23] MEDS ORDERED: ASPIRIN COATED 81 MG TABLET.EC PO SCH (10:00)
[2022-03-23] MEDS ORDERED: MIRTAZAPINE 15 MG TABLET (FP) ONE ×2 (21:11→21:12)
[2022-03-23] MEDS: ROSUVASTATIN CA 5 MG TABLET PO SCH (21:50)
[2022-03-23] MEDS: CHLORHEXIDINE GLUCONATE 4% CLEANSER FOR DECOLONIZATION TP SCH (21:50)
[2022-03-23] MEDS: MIRTAZAPINE 30 MG TABLET PO SCH (21:51)
[2022-03-23] MEDS ORDERED: amLODIPine BESYLATE 10 MG TABLET (FP) PO ONE (23:44)
[2022-03-24] MEDS ORDERED: CALAMINE 8% TOPICAL LOTION 177 ML BOTTLE TP PRN (00:24)
[2022-03-24] MEDS: INSULIN SLIDING SCALE (NOVOLOG) 1 VIAL SQ SCH ×4 (06:10→21:06)
[2022-03-24 07:24] LABS: HEMATOCRIT 32.6 % (35.4-49); HEMOGLOBIN 11.2 GM/dL (11.7-16.9); MCH 30.3 pg (25.7-33.7); MCHC 34.2 g/dl (32.0-35.9); MEAN CELL VOLUME 88.5 fl (80-96); MEAN PLT VOLUME 7.2 fl (7.5-11.1); PLATELET COUNT 250 10^3/uL (134-434); RBC 3.69 M/mm3 (4.00-5.60); WHITE BLOOD COUNT 6.3 K/mm3 (4.0-10.0)
[2022-03-24 07:36] LABS: CALCIUM 8.4 mg/dL (8.5-10.1)
[2022-03-24 07:37] LABS: ALBUMIN 2.8 g/dl (3.4-5.0); BLOOD UREA NITROGEN 43.4 mg/dL (7-18); MAGNESIUM 2.1 mg/dL (1.8-2.4)
[2022-03-24 07:40] LABS: CREATININE 2.4 mg/dL (0.55-1.3); PHOSPHOROUS 3.9 mg/dL (2.5-4.9)
[2022-03-24 07:41] LABS: BILIRUBIN,TOTAL 0.5 mg/dL (0.2-1)
[2022-03-24 07:42] LABS: TOT PROT 6.6 g/dl (6.4-8.2)
[2022-03-24 08:15] LABS: EPI CELLS 8 /uL (0-25.1); HYALINE CASTS 0 /uL (0-3.1); URINE APPEARANCE CLOUDY; URINE BACTERIA 54 /uL (0-1359); URINE BILIRUBIN NEGATIVE (NEGATIVE); URINE COLOR ORANGE; URINE GLUCOSE (UA) NEGATIVE (NEGATIVE); URINE KETONE 1+ (NEGATIVE); URINE LEUK ESTERASE 2+ (NEGATIVE); URINE NITRITE NEGATIVE (NEGATIVE); URINE PROTEIN 3+ (NEGATIVE); URINE RBC 342 /uL (0-23.9); URINE UROBILINOGEN 0.2 mg/dL (0.2-1.0); URINE WBC 105 /uL (0-25.8)
[2022-03-24] MEDS: TAMSULOSIN HCL 0.4 MG CAP PO SCH (09:07)
[2022-03-24] MEDS: MUPIROCIN 2% TOPICAL OINTMENT FOR DECOLONIZATION NS SCH ×2 (09:07→21:06)
[2022-03-24] MEDS: ISOSORBIDE MONONITRATE 30 MG TAB.SR.24H (FP) PO SCH (09:07)
[2022-03-24] MEDS: METOPROLOL TARTRATE 25 MG TABLET (FP) PO SCH ×2 (09:07→21:06)
[2022-03-24 15:32] VITALS: BMI 22.4
[2022-03-24] MEDS ORDERED: MIRTAZAPINE 15 MG TABLET (FP) ONE (21:03)
[2022-03-24] MEDS: CHLORHEXIDINE GLUCONATE 4% CLEANSER FOR DECOLONIZATION TP SCH (21:06)
[2022-03-24] MEDS: MIRTAZAPINE 30 MG TABLET PO SCH (21:06)
[2022-03-24] MEDS: ROSUVASTATIN CA 5 MG TABLET PO SCH (21:06)
[2022-03-25] MEDS: INSULIN SLIDING SCALE (NOVOLOG) 1 VIAL SQ SCH ×4 (06:17→21:24)
[2022-03-25 07:56] LABS: CALCIUM 8.3 mg/dL (8.5-10.1)
[2022-03-25 07:57] LABS: ALBUMIN 2.7 g/dl (3.4-5.0); BLOOD UREA NITROGEN 37.7 mg/dL (7-18); MAGNESIUM 2.2 mg/dL (1.8-2.4)
[2022-03-25 08:00] LABS: CREATININE 2.1 mg/dL (0.55-1.3); PHOSPHOROUS 3.6 mg/dL (2.5-4.9)
[2022-03-25 08:01] LABS: BILIRUBIN,TOTAL 0.4 mg/dL (0.2-1); TOT PROT 6.4 g/dl (6.4-8.2)
[2022-03-25 08:45] LABS: BASO % 0.4 % (0-2.0); EOS % 2.5 % (0-4.5); HEMATOCRIT 32.2 % (35.4-49); HEMOGLOBIN 10.9 GM/dL (11.7-16.9); LYMPH % 9.1 % (8-40); MCH 29.8 pg (25.7-33.7); MCHC 33.7 g/dl (32.0-35.9); MEAN CELL VOLUME 88.5 fl (80-96); MEAN PLT VOLUME 7.5 fl (7.5-11.1); MONO % 7.7 % (3.8-10.2); NEUT % 80.3 % (42.8-82.8); PLATELET COUNT 238 10^3/uL (134-434); RBC 3.64 M/mm3 (4.00-5.60); RDW 13.7 % (11.9-15.9); WHITE BLOOD COUNT 6.3 K/mm3 (4.0-10.0)
[2022-03-25] MEDS: TAMSULOSIN HCL 0.4 MG CAP PO SCH (08:55)
[2022-03-25] MEDS: FINASTERIDE 5 MG TABLET (FP) PO SCH (09:49)
[2022-03-25] MEDS: ISOSORBIDE MONONITRATE 30 MG TAB.SR.24H (FP) PO SCH (09:49)
[2022-03-25] MEDS: POLYETHYLENE GLYCOL (HEALTHYLAX) 3350 17 GM PACKET PO SCH (09:50)
[2022-03-25] MEDS: MUPIROCIN 2% TOPICAL OINTMENT FOR DECOLONIZATION NS SCH ×2 (09:50→20:59)
[2022-03-25] MEDS: METOPROLOL TARTRATE 25 MG TABLET (FP) PO SCH ×3 (09:50→21:00)
[2022-03-25] MEDS ORDERED: MIRTAZAPINE 15 MG TABLET (FP) ONE (20:50)
[2022-03-25] MEDS: CHLORHEXIDINE GLUCONATE 4% CLEANSER FOR DECOLONIZATION TP SCH (21:00)
[2022-03-25] MEDS: ROSUVASTATIN CA 5 MG TABLET PO SCH (21:00)
[2022-03-25] MEDS: MIRTAZAPINE 30 MG TABLET PO SCH (21:01)
[2022-03-26] MEDS ORDERED: CALAMINE 8% TOPICAL LOTION 177 ML BOTTLE TP PRN (01:57)
[2022-03-26] MEDS ORDERED: SODIUM CHLORIDE 1,000 ML IV SCH (01:57)
[2022-03-26] MEDS: INSULIN SLIDING SCALE (NOVOLOG) 1 VIAL SQ SCH ×2 (06:40→12:26)
[2022-03-26] MEDS ORDERED: TAMSULOSIN HCL 0.4 MG CAP PO SCH (08:30)
[2022-03-26] MEDS ORDERED: MUPIROCIN 2% TOPICAL OINTMENT FOR DECOLONIZATION NS SCH (10:00)
[2022-03-26] MEDS ORDERED: METOPROLOL TARTRATE 25 MG TABLET (FP) PO SCH (10:00)
[2022-03-26] MEDS ORDERED: ISOSORBIDE MONONITRATE 30 MG TAB.SR.24H (FP) PO SCH (10:00)
[2022-03-26 10:06] LABS: BASO % 0.3 % (0-2.0); EOS % 2.4 % (0-4.5); HEMATOCRIT 29.5 % (35.4-49); HEMOGLOBIN 9.8 GM/dL (11.7-16.9); LYMPH % 9.8 % (8-40); MCH 29.4 pg (25.7-33.7); MCHC 33.3 g/dl (32.0-35.9); MEAN CELL VOLUME 88.3 fl (80-96); MEAN PLT VOLUME 7.3 fl (7.5-11.1); NEUT % 77.5 % (42.8-82.8); PLATELET COUNT 202 10^3/uL (134-434); RBC 3.35 M/mm3 (4.00-5.60); WHITE BLOOD COUNT 6.3 K/mm3 (4.0-10.0)
[2022-03-26 10:38] LABS: CALCIUM 8.3 mg/dL (8.5-10.1)
[2022-03-26 10:39] LABS: ALBUMIN 2.6 g/dl (3.4-5.0); BLOOD UREA NITROGEN 33.8 mg/dL (7-18); MAGNESIUM 2.1 mg/dL (1.8-2.4)
[2022-03-26 10:42] LABS: PHOSPHOROUS 3.1 mg/dL (2.5-4.9)
[2022-03-26 10:43] LABS: BILIRUBIN,TOTAL 0.3 mg/dL (0.2-1)
[2022-03-26] MEDS: FINASTERIDE 5 MG TABLET (FP) PO SCH (10:46)
[2022-03-26] MEDS: POLYETHYLENE GLYCOL (HEALTHYLAX) 3350 17 GM PACKET PO SCH (10:46)
[2022-03-26 15:28] VITALS: BP 134/56; PULSE 67; TEMP 98.4
[2022-03-26] MEDS ORDERED: ROSUVASTATIN CA 5 MG TABLET PO SCH (22:00)
[2022-03-26] MEDS ORDERED: CHLORHEXIDINE GLUCONATE 4% CLEANSER FOR DECOLONIZATION TP SCH (22:00)
[2022-03-26] MEDS ORDERED: MIRTAZAPINE 30 MG TABLET PO SCH (22:00)
== END 2022-03-26 16:27 | DRG 86 ==
LOC: JER 05:43 → JERBED 05:55 → OBSVTOIN 11:59 → JICU 23:33 → J4W 03-25 23:22
PROVIDERS: ADMIT Internal Medicine; ATTEND Internal Medicine
DX: S06.5X0A Traumatic subdural hemorrhage without loss of consciousness, initial encounter (principal); N17.9 Acute kidney failure, unspecified; I45.2 Bifascicular block; I25.10 Atherosclerotic heart disease of native coronary artery without angina pectoris; E78.5 Hyperlipidemia, unspecified; N40.0 Benign prostatic hyperplasia without lower urinary tract symptoms; F32.A Depression, unspecified; I44.0 Atrioventricular block, first degree; D49.4 Neoplasm of unspecified behavior of bladder; R29.6 Repeated falls; E11.65 Type 2 diabetes mellitus with hyperglycemia; R26.81 Unsteadiness on feet; R51.9 Headache, unspecified; E87.5 Hyperkalemia; R31.9 Hematuria, unspecified; R07.89 Other chest pain; I12.9 Hypertensive chronic kidney disease with stage 1 through stage 4 chronic kidney disease, or unspecified chronic kidney disease; E11.22 Type 2 diabetes mellitus with diabetic chronic kidney disease; N18.9 Chronic kidney disease, unspecified; W18.39XA Other fall on same level, initial encounter; Z95.1 Presence of aortocoronary bypass graft; Z86.718 Personal history of other venous thrombosis and embolism; Z95.5 Presence of coronary angioplasty implant and graft; Y92.098 Other place in other non-institutional residence as the place of occurrence of the external cause
CPT/HCPCS: 36415; 70450-TC; 71045-TC-FY; 76775-TC; 76856-TC; 76870-TC; 80053; 81003; 82010; 82570; 82962; 83735; 84100; 84300; 84484; 85025; 85027; 85610; 85730; 86850; 86900; 86901; 87086; 87186; 93005; 93010; 97116-GP; 97162-GP; 99285-25; C9803-CS; G0378; U0003; U0005

== ENCOUNTER 2022-04-01 00:18 | Inpatient (IN) | payer OTHER, MEDICARE ==
[2022-04-01] MEDS ORDERED: SODIUM CHLORIDE 0.9% 500 ML INFUS.BAG IV ONE (00:38)
[2022-04-01 02:00] LABS: BASO % 0.2 % (0-2.0); EOS % 0.7 % (0-4.5); HEMATOCRIT 30.4 % (35.4-49); HEMOGLOBIN 10.2 GM/dL (11.7-16.9); LYMPH % 5.9 % (8-40); MCHC 33.4 g/dl (32.0-35.9); MEAN CELL VOLUME 89.7 fl (80-96); MEAN PLT VOLUME 8.2 fl (7.5-11.1); MONO % 12.3 % (3.8-10.2); NEUT % 80.9 % (42.8-82.8); PLATELET COUNT 203 10^3/uL (134-434); RBC 3.39 M/mm3 (4.00-5.60); RDW 14.2 % (11.9-15.9); WHITE BLOOD COUNT 8.3 K/mm3 (4.0-10.0)
[2022-04-01 02:05] LABS: EPI CELLS 5 /uL (0-25.1); HYALINE CASTS 1 /uL (0-3.1); PH,URINE 5.5 (5.0-8.0); URINE APPEARANCE CLOUDY; URINE BACTERIA 236 /uL (0-1359); URINE BILIRUBIN NEGATIVE (NEGATIVE); URINE COLOR YELLOW; URINE GLUCOSE (UA) 3+ (NEGATIVE); URINE KETONE NEGATIVE (NEGATIVE); URINE LEUK ESTERASE 1+ (NEGATIVE); URINE NITRITE NEGATIVE (NEGATIVE); URINE PROTEIN 2+ (NEGATIVE); URINE RBC 91 /uL (0-23.9); URINE UROBILINOGEN 0.2 mg/dL (0.2-1.0); URINE WBC 1366 /uL (0-25.8)
[2022-04-01 02:10] LABS: VENOUS BASE EXCESS -6.5 mmol/L (-2-2); VENOUS O2 SATURATION 94.2 % (70-80); VENOUS PCO2 49.5 mmHg (38-52); VENOUS PH 7.242 (7.310-7.410)
[2022-04-01 02:12] LABS: ACTIVATED PTT 28.5 SECONDS (25.2-36.5); INR 1.16 (0.83-1.09); PROTHROMBIN TIME (PATIENT) 13.4 SEC (9.7-13.0)
[2022-04-01 02:22] LABS: CALCIUM 8.6 mg/dL (8.5-10.1)
[2022-04-01 02:23] LABS: ALBUMIN 2.9 g/dl (3.4-5.0); CO2 21 mmol/L (21-32)
[2022-04-01 02:26] LABS: CREATININE 3.2 mg/dL (0.55-1.3); SGOT/AST 11 U/L (15-37); SGPT/ALT 16 U/L (13-61)
[2022-04-01 02:27] LABS: BILIRUBIN,TOTAL 0.3 mg/dL (0.2-1); TOT PROT 6.5 g/dl (6.4-8.2)
[2022-04-01 02:28] LABS: ALK PHOS 104 U/L (45-117)
[2022-04-01 02:29] LABS: ANION GAP 9 MMOL/L (8-16); BLOOD UREA NITROGEN 44.7 mg/dL (7-18); CHLORIDE 103 mmol/L (98-107); GLUCOSE,RANDOM 521 mg/dL (74-106); SODIUM 134 mmol/L (136-145)
[2022-04-01] MEDS ORDERED: LACTATED RINGERS SOLUTION 1000 ML INFUS.BAG IV ONE (02:44)
[2022-04-01] MEDS ORDERED: INSULIN (NOVOLOG) ASPART 100 UNITS/ML 10ML VIAL SQ ONE (02:44)
[2022-04-01] MEDS ORDERED: VANCOMYCIN 1 GM in D5W (PRE-DOCKED) 1,000 MG/250 ML IVPB ONE (02:48)
[2022-04-01] MEDS ORDERED: VANCOMYCIN 1 GRAM (PRE-DOCKED) 1,000 MG/250 ML BAG IVPB ONE (03:19)
[2022-04-01] MEDS ORDERED: PIPERACILLIN/TAZOB 2.25 GM 2.25 GM in DEXTROSE 5%-WATER - 50 ML IVPB ONE (05:44)
[2022-04-01] MEDS ORDERED: PIPERACILLIN/TAZOB 2.25 GM 2.25 GM/50 ML BAG IVPB ONE (05:58)
[2022-04-01 07:03] LABS: VENOUS BASE EXCESS -5.1 mmol/L (-2-2); VENOUS O2 SATURATION 94.9 % (70-80); VENOUS PCO2 34.8 mmHg (38-52); VENOUS PH 7.366 (7.310-7.410)
[2022-04-01 09:17] LABS: YEAST PRESENT (NEGATIVE)
[2022-04-01] MEDS: SODIUM CHLORIDE 0.45% 1,000 ML IV SCH ×2 (10:36→11:09)
[2022-04-01] MEDS: ASPIRIN COATED 81 MG TABLET.EC PO SCH (11:06)
[2022-04-01] MEDS: TAMSULOSIN HCL 0.4 MG CAP PO SCH (11:06)
[2022-04-01] MEDS: ISOSORBIDE MONONITRATE 30 MG TAB.SR.24H (FP) PO SCH (11:07)
[2022-04-01] MEDS: METOPROLOL TARTRATE 50 MG TABLET (FP) PO SCH ×2 (11:07→22:29)
[2022-04-01] MEDS: FINASTERIDE 5 MG TABLET (FP) PO SCH (11:09)
[2022-04-01] MEDS: INSULIN SLIDING SCALE (NOVOLOG) 1 VIAL SQ SCH ×3 (11:26→22:36)
[2022-04-01] MEDS ORDERED: DEXTROSE 5%-WATER - 50 ML IVPB ONE (17:09)
[2022-04-01] MEDS ORDERED: PIPERACILLIN/TAZOBACTAM 2.25 GM VIAL IVPB ONE (17:09)
[2022-04-01] MEDS: PIPERACILLIN/TAZOB 2.25 GM 2.25 GM in DEXTROSE 5%-WATER - 50 ML IVPB SCH (17:15)
[2022-04-01] MEDS ORDERED: INSULIN (NOVOLOG) ASPART 100 UNITS/ML 10ML VIAL ONE (18:21)
[2022-04-01 18:54] LABS: CALCIUM 8.1 mg/dL (8.5-10.1)
[2022-04-01 18:56] LABS: BLOOD UREA NITROGEN 41.2 mg/dL (7-18)
[2022-04-01 18:59] LABS: CREATININE 2.6 mg/dL (0.55-1.3)
[2022-04-01] MEDS ORDERED: MIRTAZAPINE 15 MG TABLET (FP) ONE (21:10)
[2022-04-01] MEDS: ROSUVASTATIN CA 5 MG TABLET PO SCH (22:28)
[2022-04-01] MEDS: MIRTAZAPINE 30 MG TABLET PO SCH (22:33)
[2022-04-02] MEDS ORDERED: PIPERACILLIN/TAZOBACTAM 2.25 GM VIAL IVPB ONE ×3 (01:52→17:02)
[2022-04-02] MEDS ORDERED: DEXTROSE 5%-WATER - 50 ML IVPB ONE ×3 (01:53→17:02)
[2022-04-02] MEDS: PIPERACILLIN/TAZOB 2.25 GM 2.25 GM in DEXTROSE 5%-WATER - 50 ML IVPB SCH ×3 (01:53→17:09)
[2022-04-02] MEDS: INSULIN SLIDING SCALE (NOVOLOG) 1 VIAL SQ SCH ×4 (07:30→21:29)
[2022-04-02] MEDS: TAMSULOSIN HCL 0.4 MG CAP PO SCH (08:53)
[2022-04-02] MEDS: SODIUM CHLORIDE 0.45% 1,000 ML IV SCH ×2 (08:54→13:49)
[2022-04-02 09:04] LABS: BASO % 0.3 % (0-2.0); HEMATOCRIT 28.7 % (35.4-49); HEMOGLOBIN 9.6 GM/dL (11.7-16.9); LYMPH % 9.2 % (8-40); MCH 30.1 pg (25.7-33.7); MCHC 33.5 g/dl (32.0-35.9); MEAN CELL VOLUME 89.7 fl (80-96); MEAN PLT VOLUME 8.2 fl (7.5-11.1); MONO % 12.3 % (3.8-10.2); NEUT % 76.2 % (42.8-82.8); PLATELET COUNT 222 10^3/uL (134-434); RDW 14.2 % (11.9-15.9); WHITE BLOOD COUNT 7.1 K/mm3 (4.0-10.0)
[2022-04-02] MEDS: METOPROLOL TARTRATE 50 MG TABLET (FP) PO SCH ×2 (09:32→21:31)
[2022-04-02] MEDS: ISOSORBIDE MONONITRATE 30 MG TAB.SR.24H (FP) PO SCH (09:32)
[2022-04-02] MEDS: FINASTERIDE 5 MG TABLET (FP) PO SCH (09:32)
[2022-04-02] MEDS: ASPIRIN COATED 81 MG TABLET.EC PO SCH (09:33)
[2022-04-02 09:46] LABS: CALCIUM 8.3 mg/dL (8.5-10.1)
[2022-04-02 09:47] LABS: ALBUMIN 2.5 g/dl (3.4-5.0); BLOOD UREA NITROGEN 40.9 mg/dL (7-18)
[2022-04-02 09:50] LABS: CREATININE 2.6 mg/dL (0.55-1.3)
[2022-04-02 09:51] LABS: BILIRUBIN,TOTAL 0.5 mg/dL (0.2-1); TOT PROT 5.8 g/dl (6.4-8.2)
[2022-04-02] MEDS ORDERED: SODIUM ZIRCONIUM CYCLOSILICATE (LOKELMA) 5 GM PACKET PO SCH (10:00)
[2022-04-02] MEDS ORDERED: INSULIN (NOVOLOG) ASPART 100 UNITS/ML 10ML VIAL ONE (10:55)
[2022-04-02] MEDS ORDERED: HEPARIN NA (PORCINE) 5,000 UNITS/ML 1ML VIAL SQ SCH (14:00)
[2022-04-02 16:08] VITALS: BMI 26.4
[2022-04-02] MEDS ORDERED: MIRTAZAPINE 15 MG TABLET (FP) ONE (20:22)
[2022-04-02] MEDS: ROSUVASTATIN CA 5 MG TABLET PO SCH (21:31)
[2022-04-02] MEDS: MIRTAZAPINE 30 MG TABLET PO SCH (21:32)
[2022-04-02] MEDS ORDERED: INSULIN (LEVEMIR) 100 UNITS/ML UNITS SQ SCH (22:00)
[2022-04-03] MEDS ORDERED: DEXTROSE 5%-WATER - 50 ML IVPB ONE ×2 (01:30→09:41)
[2022-04-03] MEDS ORDERED: PIPERACILLIN/TAZOBACTAM 2.25 GM VIAL IVPB ONE ×2 (01:30→09:41)
[2022-04-03] MEDS: PIPERACILLIN/TAZOB 2.25 GM 2.25 GM in DEXTROSE 5%-WATER - 50 ML IVPB SCH ×2 (01:47→10:10)
[2022-04-03] MEDS: INSULIN SLIDING SCALE (NOVOLOG) 1 VIAL SQ SCH ×4 (07:09→21:46)
[2022-04-03 08:29] LABS: BASO % 0.6 % (0-2.0); EOS % 3.3 % (0-4.5); HEMATOCRIT 26.9 % (35.4-49); LYMPH % 12.2 % (8-40); MCH 29.7 pg (25.7-33.7); MCHC 33.4 g/dl (32.0-35.9); MEAN CELL VOLUME 88.8 fl (80-96); MEAN PLT VOLUME 8.2 fl (7.5-11.1); MONO % 11.8 % (3.8-10.2); NEUT % 72.1 % (42.8-82.8); PLATELET COUNT 223 10^3/uL (134-434); RBC 3.04 M/mm3 (4.00-5.60); RDW 14.1 % (11.9-15.9); WHITE BLOOD COUNT 5.6 K/mm3 (4.0-10.0)
[2022-04-03 08:35] LABS: BLOOD UREA NITROGEN 32.2 mg/dL (7-18); MAGNESIUM 1.9 mg/dL (1.8-2.4)
[2022-04-03 08:37] LABS: CREATININE 2.4 mg/dL (0.55-1.3); PHOSPHOROUS 3.5 mg/dL (2.5-4.9)
[2022-04-03] MEDS: FINASTERIDE 5 MG TABLET (FP) PO SCH (10:07)
[2022-04-03] MEDS: ISOSORBIDE MONONITRATE 30 MG TAB.SR.24H (FP) PO SCH (10:07)
[2022-04-03] MEDS: ASPIRIN COATED 81 MG TABLET.EC PO SCH (10:07)
[2022-04-03] MEDS: TAMSULOSIN HCL 0.4 MG CAP PO SCH (10:08)
[2022-04-03] MEDS: SODIUM CHLORIDE 0.45% 1,000 ML IV SCH (10:08)
[2022-04-03] MEDS: INSULIN (LEVEMIR) 100 UNITS/ML UNITS SQ SCH ×2 (10:09→21:46)
[2022-04-03] MEDS: METOPROLOL TARTRATE 50 MG TABLET (FP) PO SCH ×2 (10:10→21:39)
[2022-04-03] MEDS ORDERED: MIRTAZAPINE 15 MG TABLET (FP) ONE (20:50)
[2022-04-03] MEDS: AMOXICILLIN 500 MG CAPSULE (FP) PO SCH (21:38)
[2022-04-03] MEDS: MIRTAZAPINE 30 MG TABLET PO SCH (21:39)
[2022-04-04] MEDS: AMOXICILLIN 500 MG CAPSULE (FP) PO SCH ×3 (05:43→21:34)
[2022-04-04] MEDS: INSULIN SLIDING SCALE (NOVOLOG) 1 VIAL SQ SCH ×4 (06:16→21:35)
[2022-04-04 08:10] LABS: BASO % 0.4 % (0-2.0); EOS % 3.7 % (0-4.5); HEMATOCRIT 26.5 % (35.4-49); HEMOGLOBIN 9.2 GM/dL (11.7-16.9); MCH 30.2 pg (25.7-33.7); MCHC 34.5 g/dl (32.0-35.9); MEAN CELL VOLUME 87.5 fl (80-96); MONO % 13.9 % (3.8-10.2); PLATELET COUNT 245 10^3/uL (134-434); RBC 3.03 M/mm3 (4.00-5.60); RDW 14.6 % (11.9-15.9); WHITE BLOOD COUNT 5.6 K/mm3 (4.0-10.0)
[2022-04-04 08:48] LABS: CALCIUM 8.3 mg/dL (8.5-10.1)
[2022-04-04 08:49] LABS: BLOOD UREA NITROGEN 27.9 mg/dL (7-18); MAGNESIUM 1.9 mg/dL (1.8-2.4)
[2022-04-04 08:52] LABS: CREATININE 2.3 mg/dL (0.55-1.3); PHOSPHOROUS 4.2 mg/dL (2.5-4.9)
[2022-04-04] MEDS: FINASTERIDE 5 MG TABLET (FP) PO SCH (09:36)
[2022-04-04] MEDS: ASPIRIN COATED 81 MG TABLET.EC PO SCH (09:36)
[2022-04-04] MEDS: ISOSORBIDE MONONITRATE 30 MG TAB.SR.24H (FP) PO SCH (09:37)
[2022-04-04] MEDS: TAMSULOSIN HCL 0.4 MG CAP PO SCH (09:37)
[2022-04-04] MEDS: METOPROLOL TARTRATE 50 MG TABLET (FP) PO SCH ×2 (09:37→21:34)
[2022-04-04] MEDS: INSULIN (LEVEMIR) 100 UNITS/ML UNITS SQ SCH ×2 (09:41→21:34)
[2022-04-04] MEDS ORDERED: MIRTAZAPINE 15 MG TABLET (FP) ONE (20:57)
[2022-04-04] MEDS: MIRTAZAPINE 30 MG TABLET PO SCH (21:35)
[2022-04-05] MEDS: AMOXICILLIN 500 MG CAPSULE (FP) PO SCH ×2 (05:51→14:22)
[2022-04-05] MEDS: INSULIN SLIDING SCALE (NOVOLOG) 1 VIAL SQ SCH ×3 (06:16→16:52)
[2022-04-05] MEDS: TAMSULOSIN HCL 0.4 MG CAP PO SCH (08:18)
[2022-04-05 08:27] LABS: BASO % 0.4 % (0-2.0); EOS % 2.7 % (0-4.5); HEMATOCRIT 27.1 % (35.4-49); LYMPH % 4.6 % (8-40); MCH 29.5 pg (25.7-33.7); MCHC 33.3 g/dl (32.0-35.9); MEAN CELL VOLUME 88.7 fl (80-96); MONO % 12.9 % (3.8-10.2); NEUT % 79.4 % (42.8-82.8); PLATELET COUNT 231 10^3/uL (134-434); RBC 3.06 M/mm3 (4.00-5.60); RDW 13.9 % (11.9-15.9); WHITE BLOOD COUNT 6.8 K/mm3 (4.0-10.0)
[2022-04-05 08:48] LABS: BLOOD UREA NITROGEN 27.7 mg/dL (7-18); MAGNESIUM 1.7 mg/dL (1.8-2.4)
[2022-04-05 08:49] LABS: CALCIUM 8.3 mg/dL (8.5-10.1)
[2022-04-05 08:50] LABS: CREATININE 2.3 mg/dL (0.55-1.3); PHOSPHOROUS 3.3 mg/dL (2.5-4.9)
[2022-04-05] MEDS: METOPROLOL TARTRATE 50 MG TABLET (FP) PO SCH (10:55)
[2022-04-05] MEDS: ISOSORBIDE MONONITRATE 30 MG TAB.SR.24H (FP) PO SCH (10:55)
[2022-04-05] MEDS: ASPIRIN COATED 81 MG TABLET.EC PO SCH (10:55)
[2022-04-05] MEDS: FINASTERIDE 5 MG TABLET (FP) PO SCH (10:56)
[2022-04-05] MEDS: INSULIN (LEVEMIR) 100 UNITS/ML UNITS SQ SCH (10:57)
[2022-04-05 15:13] VITALS: BP 121/54; PULSE 56; TEMP 98
== END 2022-04-05 20:31 | DRG 689 ==
LOC: JER 00:18 → JERBED 02:46 → J8W 09:42
PROVIDERS: ADMIT Hospitalist; ATTEND Family Medicine
DX: N39.0 Urinary tract infection, site not specified (principal); G93.41 Metabolic encephalopathy; E87.2 Acidosis; B95.2 Enterococcus as the cause of diseases classified elsewhere; E78.5 Hyperlipidemia, unspecified; I25.10 Atherosclerotic heart disease of native coronary artery without angina pectoris; I12.9 Hypertensive chronic kidney disease with stage 1 through stage 4 chronic kidney disease, or unspecified chronic kidney disease; E11.22 Type 2 diabetes mellitus with diabetic chronic kidney disease; N18.9 Chronic kidney disease, unspecified; N32.89 Other specified disorders of bladder; E11.65 Type 2 diabetes mellitus with hyperglycemia; D50.9 Iron deficiency anemia, unspecified; Z86.718 Personal history of other venous thrombosis and embolism; Z95.1 Presence of aortocoronary bypass graft
CPT/HCPCS: 36415; 70450-TC; 71045-TC-FY; 80048; 80053; 81003; 82010; 82803; 82962; 83036; 83605; 83690; 83735; 84100; 84443; 84484; 85025; 85610; 85730; 87086; 87186; 93005; 93010; 97116-GP; 97162-GP; 99291; C9803-CS; U0003; U0005

== ENCOUNTER 2022-07-14 11:13 | Inpatient (IN) | payer OTHER, MEDICARE ==
[2022-07-14] MEDS ORDERED: SODIUM CHLORIDE 500 ML IV STA (11:51)
[2022-07-14 13:06] LABS: BASO % 0.6 % (0-2.0); EOS % 4.7 % (0-4.5); HEMOGLOBIN 10.3 GM/dL (11.7-16.9); LYMPH % 11.7 % (8-40); MCH 28.4 pg (25.7-33.7); MCHC 33.1 g/dl (32.0-35.9); MEAN CELL VOLUME 85.8 fl (80-96); MEAN PLT VOLUME 8.3 fl (7.5-11.1); MONO % 8.6 % (3.8-10.2); NEUT % 74.4 % (42.8-82.8); PLATELET COUNT 205 10^3/uL (134-434); RBC 3.62 M/mm3 (4.00-5.60); RDW 16.2 % (11.9-15.9); WHITE BLOOD COUNT 5.8 K/mm3 (4.0-10.0)
[2022-07-14 13:31] LABS: ALBUMIN 2.9 g/dl (3.4-5.0); BLOOD UREA NITROGEN 45.2 mg/dL (7-18); CALCIUM 8.6 mg/dL (8.5-10.1)
[2022-07-14 13:32] LABS: EPI CELLS 12 /uL (0-25.1); HYALINE CASTS 11 /uL (0-3.1); URINE APPEARANCE TURBID; URINE BACTERIA 407 /uL (0-1359); URINE BILIRUBIN 1+ (NEGATIVE); URINE COLOR RED; URINE GLUCOSE (UA) 3+ (NEGATIVE); URINE KETONE NEGATIVE (NEGATIVE); URINE LEUK ESTERASE 3+ (NEGATIVE); URINE NITRITE NEGATIVE (NEGATIVE); URINE PROTEIN 3+ (NEGATIVE); URINE UROBILINOGEN 0.2 mg/dL (0.2-1.0); URINE WBC 3660 /uL (0-25.8)
[2022-07-14 13:35] LABS: URINE RBC 22767 /uL (0-23.9)
[2022-07-14 13:35] LABS: CREATININE 2.7 mg/dL (0.55-1.3)
[2022-07-14 13:36] LABS: BILIRUBIN,TOTAL 0.4 mg/dL (0.2-1); TOT PROT 6.8 g/dl (6.4-8.2)
[2022-07-14 14:03] LABS: YEAST NEGATIVE (NEGATIVE)
[2022-07-14] MEDS ORDERED: VANCOMYCIN 1 GM in D5W (PRE-DOCKED) 1,000 MG/250 ML IVPB SCH (17:30)
[2022-07-14] MEDS ORDERED: CEFTRIAXONE 1 GM in DEXTROSE 5%-WATER - 50 ML IVPB SCH (17:30)
[2022-07-14] MEDS ORDERED: PIPERACILLIN/TAZOB 3.375 GM 3.375 GM in DEXTROSE 5%-WATER - 50 ML IVPB SCH (18:00)
[2022-07-14] MEDS ORDERED: PIPERACILLIN/TAZOB 3.375 GM 3.375 GM/50 ML BAG IVPB ONE ×2 (18:04→23:12)
[2022-07-14] MEDS: INSULIN SLIDING SCALE (NOVOLOG) 1 VIAL SQ SCH ×2 (18:05→23:30)
[2022-07-14] MEDS: PIPERACILLIN/TAZOB 3.375 GM 3.375 GM in DEXTROSE 5%-WATER - 50 ML IVPB SCH (20:02)
[2022-07-14] MEDS ORDERED: METOPROLOL TARTRATE 25 MG TABLET (FP) ONE (23:12)
[2022-07-14] MEDS: INSULIN (LEVEMIR) 100 UNITS/ML UNITS SQ SCH (23:31)
[2022-07-14] MEDS: METOPROLOL TARTRATE 50 MG TABLET (FP) PO SCH (23:31)
[2022-07-14] MEDS: ROSUVASTATIN CA 5 MG TABLET PO SCH (23:31)
[2022-07-15] MEDS: PIPERACILLIN/TAZOB 3.375 GM 3.375 GM in DEXTROSE 5%-WATER - 50 ML IVPB SCH ×2 (03:04→09:53)
[2022-07-15] MEDS ORDERED: PIPERACILLIN/TAZOB 3.375 GM 3.375 GM/50 ML BAG IVPB ONE ×2 (03:06→09:27)
[2022-07-15 07:26] LABS: BASO % 0.7 % (0-2.0); EOS % 5.2 % (0-4.5); HEMATOCRIT 31.9 % (35.4-49); HEMOGLOBIN 10.4 GM/dL (11.7-16.9); MCH 28.2 pg (25.7-33.7); MCHC 32.8 g/dl (32.0-35.9); MEAN CELL VOLUME 86.1 fl (80-96); MEAN PLT VOLUME 8.2 fl (7.5-11.1); NEUT % 72.1 % (42.8-82.8); PLATELET COUNT 249 10^3/uL (134-434); RDW 16.6 % (11.9-15.9); WHITE BLOOD COUNT 6.6 K/mm3 (4.0-10.0)
[2022-07-15 07:31] LABS: INR 1.02 (0.83-1.09); PROTHROMBIN TIME (PATIENT) 11.7 SEC (9.7-13.0)
[2022-07-15 07:34] LABS: ACTIVATED PTT 27.4 SECONDS (25.2-36.5)
[2022-07-15 07:58] LABS: ALBUMIN 2.8 g/dl (3.4-5.0); CALCIUM 8.5 mg/dL (8.5-10.1)
[2022-07-15 07:59] LABS: MAGNESIUM 2.2 mg/dL (1.8-2.4)
[2022-07-15 08:01] LABS: PHOSPHOROUS 4.4 mg/dL (2.5-4.9)
[2022-07-15 08:02] LABS: CREATININE 2.6 mg/dL (0.55-1.3)
[2022-07-15 08:03] LABS: BILIRUBIN,TOTAL 0.4 mg/dL (0.2-1); TOT PROT 6.7 g/dl (6.4-8.2)
[2022-07-15] MEDS ORDERED: TAMSULOSIN HCL 0.4 MG CAP ONE (09:26)
[2022-07-15] MEDS ORDERED: METOPROLOL TARTRATE 50 MG TABLET (FP) ONE ×2 (09:26→22:29)
[2022-07-15] MEDS ORDERED: METOPROLOL TARTRATE 25 MG TABLET (FP) ONE ×2 (09:26→22:29)
[2022-07-15] MEDS ORDERED: ISOSORBIDE MONONITRATE 30 MG TAB.SR.24H (FP) PO ONE (09:26)
[2022-07-15] MEDS: INSULIN SLIDING SCALE (NOVOLOG) 1 VIAL SQ SCH ×4 (09:52→22:27)
[2022-07-15] MEDS: TAMSULOSIN HCL 0.4 MG CAP PO SCH (09:52)
[2022-07-15] MEDS: METOPROLOL TARTRATE 50 MG TABLET (FP) PO SCH ×2 (09:53→22:33)
[2022-07-15] MEDS: INSULIN (LEVEMIR) 100 UNITS/ML UNITS SQ SCH (09:53)
[2022-07-15] MEDS: ISOSORBIDE MONONITRATE 30 MG TAB.SR.24H (FP) PO SCH (09:53)
[2022-07-15] MEDS: FINASTERIDE 5 MG TABLET (FP) PO SCH (09:53)
[2022-07-15] MEDS ORDERED: PIPERACILLIN/TAZOB 2.25 GM 2.25 GM/50 ML BAG IVPB ONE ×2 (13:04→17:45)
[2022-07-15] MEDS: PIPERACILLIN/TAZOB 2.25 GM 2.25 GM in DEXTROSE 5%-WATER - 50 ML IVPB SCH ×2 (13:11→17:53)
[2022-07-15] MEDS ORDERED: SODIUM CHLORIDE 0.45% 1,000 ML IV SCH (17:45)
[2022-07-15] MEDS ORDERED: ROSUVASTATIN CA 20 MG TABLET ONE (22:29)
[2022-07-15] MEDS: ROSUVASTATIN CA 5 MG TABLET PO SCH (22:33)
[2022-07-16 01:23] VITALS: BMI 24.2
[2022-07-16] MEDS: PIPERACILLIN/TAZOB 2.25 GM 2.25 GM in DEXTROSE 5%-WATER - 50 ML IVPB SCH ×2 (02:46→09:28)
[2022-07-16] MEDS: INSULIN SLIDING SCALE (NOVOLOG) 1 VIAL SQ SCH ×4 (06:20→22:23)
[2022-07-16] MEDS ORDERED: LACTATED RINGERS SOLUTION 1,000 ML/1,000 ML INFUS.BAG IV SCH (08:45)
[2022-07-16] MEDS: TAMSULOSIN HCL 0.4 MG CAP PO SCH (09:27)
[2022-07-16] MEDS: ASPIRIN COATED 81 MG TABLET.EC PO SCH (09:27)
[2022-07-16] MEDS: METOPROLOL TARTRATE 50 MG TABLET (FP) PO SCH ×2 (09:28→21:32)
[2022-07-16] MEDS: ISOSORBIDE MONONITRATE 30 MG TAB.SR.24H (FP) PO SCH (09:28)
[2022-07-16] MEDS: FINASTERIDE 5 MG TABLET (FP) PO SCH (09:28)
[2022-07-16] MEDS ORDERED: ERTAPENEM SODIUM 0.5 GM in SODIUM CHLORIDE 50 ML IVPB SCH (10:00)
[2022-07-16] MEDS: HEPARIN NA (PORCINE) 5,000 UNITS/ML 1ML VIAL SQ SCH (21:32)
[2022-07-16] MEDS: ROSUVASTATIN CA 5 MG TABLET PO SCH (21:32)
[2022-07-17] MEDS: INSULIN SLIDING SCALE (NOVOLOG) 1 VIAL SQ SCH ×4 (06:36→21:57)
[2022-07-17] MEDS: HEPARIN NA (PORCINE) 5,000 UNITS/ML 1ML VIAL SQ SCH ×3 (06:38→21:45)
[2022-07-17] MEDS: TAMSULOSIN HCL 0.4 MG CAP PO SCH (08:17)
[2022-07-17 09:17] LABS: HEMATOCRIT 28.4 % (35.4-49); HEMOGLOBIN 9.5 GM/dL (11.7-16.9); MCHC 33.3 g/dl (32.0-35.9); MEAN CELL VOLUME 87.1 fl (80-96); MEAN PLT VOLUME 8.1 fl (7.5-11.1); PLATELET COUNT 208 10^3/uL (134-434); RBC 3.26 M/mm3 (4.00-5.60); RDW 16.2 % (11.9-15.9); WHITE BLOOD COUNT 6.5 K/mm3 (4.0-10.0)
[2022-07-17] MEDS: METOPROLOL TARTRATE 50 MG TABLET (FP) PO SCH ×2 (09:46→21:49)
[2022-07-17] MEDS: ASPIRIN COATED 81 MG TABLET.EC PO SCH (09:47)
[2022-07-17] MEDS: FINASTERIDE 5 MG TABLET (FP) PO SCH (09:47)
[2022-07-17] MEDS: ISOSORBIDE MONONITRATE 30 MG TAB.SR.24H (FP) PO SCH (09:48)
[2022-07-17 10:06] LABS: BLOOD UREA NITROGEN 48.2 mg/dL (7-18); CALCIUM 8.3 mg/dL (8.5-10.1)
[2022-07-17 10:10] LABS: CREATININE 2.6 mg/dL (0.55-1.3)
[2022-07-18] MEDS: HEPARIN NA (PORCINE) 5,000 UNITS/ML 1ML VIAL SQ SCH ×3 (06:53→21:17)
[2022-07-18] MEDS: glipiZIDE 5 MG TABLET (FP) PO SCH (06:56)
[2022-07-18] MEDS: INSULIN SLIDING SCALE (NOVOLOG) 1 VIAL SQ SCH ×4 (07:54→21:18)
[2022-07-18] MEDS: TAMSULOSIN HCL 0.4 MG CAP PO SCH (08:29)
[2022-07-18 08:42] LABS: HEMATOCRIT 28.7 % (35.4-49); HEMOGLOBIN 9.7 GM/dL (11.7-16.9); MCH 29.4 pg (25.7-33.7); MCHC 33.9 g/dl (32.0-35.9); MEAN CELL VOLUME 86.8 fl (80-96); MEAN PLT VOLUME 7.9 fl (7.5-11.1); PLATELET COUNT 177 10^3/uL (134-434); RBC 3.31 M/mm3 (4.00-5.60); RDW 16.1 % (11.9-15.9); WHITE BLOOD COUNT 4.5 K/mm3 (4.0-10.0)
[2022-07-18 09:02] LABS: CALCIUM 8.2 mg/dL (8.5-10.1)
[2022-07-18 09:03] LABS: BLOOD UREA NITROGEN 49.6 mg/dL (7-18)
[2022-07-18 09:06] LABS: CREATININE 2.8 mg/dL (0.55-1.3)
[2022-07-18] MEDS: ASPIRIN COATED 81 MG TABLET.EC PO SCH (09:44)
[2022-07-18] MEDS: ISOSORBIDE MONONITRATE 30 MG TAB.SR.24H (FP) PO SCH (09:44)
[2022-07-18] MEDS: METOPROLOL TARTRATE 50 MG TABLET (FP) PO SCH ×2 (09:45→21:18)
[2022-07-18] MEDS: FINASTERIDE 5 MG TABLET (FP) PO SCH (09:45)
[2022-07-18] MEDS ORDERED: SODIUM CHLORIDE 0.45% 1,000 ML IV SCH (12:00)
[2022-07-19] MEDS ORDERED: MELATONIN 5 MG TABLETS PO ONE (03:55)
[2022-07-19] MEDS: HEPARIN NA (PORCINE) 5,000 UNITS/ML 1ML VIAL SQ SCH ×3 (06:08→21:53)
[2022-07-19] MEDS: glipiZIDE 5 MG TABLET (FP) PO SCH (06:08)
[2022-07-19] MEDS: INSULIN SLIDING SCALE (NOVOLOG) 1 VIAL SQ SCH ×4 (06:09→22:00)
[2022-07-19 08:13] LABS: HEMATOCRIT 26.8 % (35.4-49); MCHC 33.5 g/dl (32.0-35.9); MEAN CELL VOLUME 86.6 fl (80-96); MEAN PLT VOLUME 8.4 fl (7.5-11.1); PLATELET COUNT 160 10^3/uL (134-434); RBC 3.09 M/mm3 (4.00-5.60); RDW 16.2 % (11.9-15.9); WHITE BLOOD COUNT 4.6 K/mm3 (4.0-10.0)
[2022-07-19 08:27] LABS: CALCIUM 8.1 mg/dL (8.5-10.1)
[2022-07-19 08:31] LABS: CREATININE 2.7 mg/dL (0.55-1.3)
[2022-07-19] MEDS: TAMSULOSIN HCL 0.4 MG CAP PO SCH (11:03)
[2022-07-19] MEDS: ISOSORBIDE MONONITRATE 30 MG TAB.SR.24H (FP) PO SCH (11:04)
[2022-07-19] MEDS: FINASTERIDE 5 MG TABLET (FP) PO SCH (11:04)
[2022-07-19] MEDS: ASPIRIN COATED 81 MG TABLET.EC PO SCH (11:04)
[2022-07-19] MEDS: METOPROLOL TARTRATE 50 MG TABLET (FP) PO SCH ×2 (11:04→21:53)
[2022-07-19 15:13] VITALS: RESP 18
[2022-07-19] MEDS ORDERED: DEXTROSE 50%-WATER 25 GM/50 ML DISP.SYRIN IVPUSH ONE (16:21)
[2022-07-19] MEDS ORDERED: DEXTROSE 50%-WATER 25 GM/50 ML DISP.SYRIN ONE (16:24)
[2022-07-19] MEDS: ROSUVASTATIN CA 5 MG TABLET PO SCH (21:53)
[2022-07-19] MEDS ORDERED: MELATONIN 5 MG TABLETS PO SCH (22:00)
[2022-07-20] MEDS: HEPARIN NA (PORCINE) 5,000 UNITS/ML 1ML VIAL SQ SCH ×2 (06:32→15:24)
[2022-07-20] MEDS: INSULIN SLIDING SCALE (NOVOLOG) 1 VIAL SQ SCH ×3 (06:49→17:45)
[2022-07-20 07:40] LABS: HEMATOCRIT 24.8 % (35.4-49); HEMOGLOBIN 8.3 GM/dL (11.7-16.9); MCH 28.9 pg (25.7-33.7); MCHC 33.2 g/dl (32.0-35.9); MEAN CELL VOLUME 86.8 fl (80-96); MEAN PLT VOLUME 8.3 fl (7.5-11.1); PLATELET COUNT 144 10^3/uL (134-434); RBC 2.86 M/mm3 (4.00-5.60); RDW 16.4 % (11.9-15.9)
[2022-07-20 07:50] LABS: BLOOD UREA NITROGEN 41.8 mg/dL (7-18); CALCIUM 7.8 mg/dL (8.5-10.1)
[2022-07-20 07:51] LABS: ALBUMIN 2.4 g/dl (3.4-5.0); MAGNESIUM 1.8 mg/dL (1.8-2.4)
[2022-07-20 07:53] LABS: PHOSPHOROUS 3.8 mg/dL (2.5-4.9)
[2022-07-20 07:54] LABS: CREATININE 2.5 mg/dL (0.55-1.3)
[2022-07-20 07:55] LABS: BILIRUBIN,TOTAL 0.2 mg/dL (0.2-1); TOT PROT 5.6 g/dl (6.4-8.2)
[2022-07-20] MEDS: glipiZIDE 5 MG TABLET (FP) PO SCH (09:59)
[2022-07-20] MEDS: TAMSULOSIN HCL 0.4 MG CAP PO SCH (10:01)
[2022-07-20] MEDS: ISOSORBIDE MONONITRATE 30 MG TAB.SR.24H (FP) PO SCH (10:54)
[2022-07-20] MEDS: FINASTERIDE 5 MG TABLET (FP) PO SCH (10:54)
[2022-07-20] MEDS: ASPIRIN COATED 81 MG TABLET.EC PO SCH (10:54)
[2022-07-20] MEDS: METOPROLOL TARTRATE 50 MG TABLET (FP) PO SCH (10:54)
[2022-07-20] MEDS ORDERED: DEXTROSE 50%-WATER 25 GM/50 ML DISP.SYRIN ONE (17:44)
[2022-07-20] MEDS ORDERED: DEXTROSE 50%-WATER 25 GM/50 ML DISP.SYRIN IVPUSH ONE (18:18)
[2022-07-20 18:52] VITALS: BP 115/42; PULSE 53; TEMP 98.8
== END 2022-07-20 19:43 | DRG 689 ==
LOC: JER 11:13 → JERBED 15:37 → J4W 07-16 00:42 → OBSVTOIN 07-16 09:33 → J4W 07-16 20:48
PROVIDERS: ADMIT Internal Medicine; ATTEND Internal Medicine
DX: N39.0 Urinary tract infection, site not specified (principal); G93.41 Metabolic encephalopathy; I45.2 Bifascicular block; N17.9 Acute kidney failure, unspecified; I12.9 Hypertensive chronic kidney disease with stage 1 through stage 4 chronic kidney disease, or unspecified chronic kidney disease; E11.22 Type 2 diabetes mellitus with diabetic chronic kidney disease; E78.5 Hyperlipidemia, unspecified; N18.9 Chronic kidney disease, unspecified; N40.0 Benign prostatic hyperplasia without lower urinary tract symptoms; F32.A Depression, unspecified; I25.10 Atherosclerotic heart disease of native coronary artery without angina pectoris; E11.649 Type 2 diabetes mellitus with hypoglycemia without coma; R31.9 Hematuria, unspecified; I69.10 Unspecified sequelae of nontraumatic intracerebral hemorrhage; B96.1 Klebsiella pneumoniae [K. pneumoniae] as the cause of diseases classified elsewhere; B96.4 Proteus (mirabilis) (morganii) as the cause of diseases classified elsewhere; Z85.51 Personal history of malignant neoplasm of bladder; Z86.718 Personal history of other venous thrombosis and embolism; Z95.1 Presence of aortocoronary bypass graft; W18.39XA Other fall on same level, initial encounter; Y92.098 Other place in other non-institutional residence as the place of occurrence of the external cause
CPT/HCPCS: 36415; 70450-TC; 71045-TC-FY; 72125-TC; 76775-TC; 80048; 80053; 81003; 82550; 82607; 82746; 82962; 83735; 84100; 84443; 84484; 85025; 85027; 85610; 85730; 87040; 87086; 87186; 93005; 93010; 93306-TC; 93880-TC; 97116-GP; 97162-GP; 99285-25; C9803-CS; G0378; G0480; J1644; U0003; U0005

== ENCOUNTER 2022-08-21 23:09 | Inpatient (IN) | payer MEDICARE, OTHER ==
[2022-08-21] MEDS ORDERED: DEXTROSE 50%-WATER 25 GM/50 ML DISP.SYRIN ONE (23:21)
[2022-08-21] MEDS ORDERED: DEXTROSE 50%-WATER - 25 GM/50 ML VIAL IVPUSH ONE (23:35)
[2022-08-22 01:31] LABS: BASO % 0.2 % (0-2.0); EOS % 1.2 % (0-4.5); HEMATOCRIT 28.6 % (35.4-49); HEMOGLOBIN 9.7 GM/dL (11.7-16.9); LYMPH % 5.1 % (8-40); MCH 30.2 pg (25.7-33.7); MCHC 33.9 g/dl (32.0-35.9); MEAN PLT VOLUME 7.4 fl (7.5-11.1); MONO % 10.4 % (3.8-10.2); NEUT % 83.1 % (42.8-82.8); PLATELET COUNT 132 10^3/uL (134-434); RBC 3.21 M/mm3 (4.00-5.60); RDW 16.7 % (11.9-15.9); WHITE BLOOD COUNT 7.7 K/mm3 (4.0-10.0)
[2022-08-22 01:50] LABS: CALCIUM 8.2 mg/dL (8.5-10.1)
[2022-08-22 01:51] LABS: ALBUMIN 2.3 g/dl (3.4-5.0)
[2022-08-22 01:53] LABS: BLOOD UREA NITROGEN 78.7 mg/dL (7-18)
[2022-08-22 01:54] LABS: CREATININE 3.7 mg/dL (0.55-1.3)
[2022-08-22 01:55] LABS: TOT PROT 5.8 g/dl (6.4-8.2)
[2022-08-22 01:57] LABS: BILIRUBIN,TOTAL 0.3 mg/dL (0.2-1)
[2022-08-22] MEDS ORDERED: SODIUM CHLORIDE 1,000 ML IV STA (02:05)
[2022-08-22 02:45] LABS: EPI CELLS >36 /uL (0-25.1); HYALINE CASTS 40 /uL (0-3.1); PH,URINE 6.5 (5.0-8.0); URINE APPEARANCE TURBID; URINE BACTERIA 2244 /uL (0-1359); URINE BILIRUBIN NEGATIVE (NEGATIVE); URINE COLOR YELLOW; URINE GLUCOSE (UA) NEGATIVE (NEGATIVE); URINE KETONE NEGATIVE (NEGATIVE); URINE LEUK ESTERASE 3+ (NEGATIVE); URINE NITRITE NEGATIVE (NEGATIVE); URINE PROTEIN 2+ (NEGATIVE); URINE UROBILINOGEN 0.2 mg/dL (0.2-1.0); URINE WBC 7696 /uL (0-25.8)
[2022-08-22] MEDS ORDERED: ERTAPENEM SODIUM 0.5 GM in SODIUM CHLORIDE 50 ML IVPB ONE (02:55)
[2022-08-22 03:02] LABS: URINE RBC 435.2 /uL (0-23.9)
[2022-08-22 03:03] LABS: YEAST NONE SEEN (NEGATIVE)
[2022-08-22] MEDS ORDERED: CALAMINE 8% TOPICAL LOTION 177 ML BOTTLE TP PRN (03:23)
[2022-08-22] MEDS ORDERED: ERTAPENEM SODIUM 1 GM VIAL ONE (03:45)
[2022-08-22] MEDS ORDERED: DEXTROSE 5%-NORMAL SALINE 1,000 ML IV SCH (05:00)
[2022-08-22] MEDS ORDERED: COD LIVER OIL/ZINC OXIDE PASTE 56 GM TUBE TP PRN (05:06)
[2022-08-22 05:44] VITALS: BMI 23.1
[2022-08-22] MEDS: HEPARIN NA (PORCINE) 5,000 UNITS/ML 1ML VIAL SQ SCH ×3 (07:38→22:55)
[2022-08-22] MEDS: INSULIN SLIDING SCALE (NOVOLOG) 1 VIAL SQ SCH ×4 (07:39→23:01)
[2022-08-22] MEDS ORDERED: DEXTROSE 50%-WATER - 25 GM/50 ML VIAL IVPUSH ONE (07:52)
[2022-08-22] MEDS ORDERED: DEXTROSE 50%-WATER - 25 GM/50 ML VIAL IVPUSH PRN (07:53)
[2022-08-22] MEDS ORDERED: DEXTROSE 50%-WATER 25 GM/50 ML DISP.SYRIN ONE (08:00)
[2022-08-22] MEDS: TAMSULOSIN HCL 0.4 MG CAP PO SCH (08:58)
[2022-08-22 09:45] LABS: BASO % 0.3 % (0-2.0); EOS % 2.6 % (0-4.5); HEMATOCRIT 28.1 % (35.4-49); HEMOGLOBIN 9.2 GM/dL (11.7-16.9); LYMPH % 5.8 % (8-40); MCH 29.4 pg (25.7-33.7); MCHC 32.8 g/dl (32.0-35.9); MEAN CELL VOLUME 89.4 fl (80-96); MEAN PLT VOLUME 7.7 fl (7.5-11.1); MONO % 10.8 % (3.8-10.2); NEUT % 80.5 % (42.8-82.8); PLATELET COUNT 146 10^3/uL (134-434); RBC 3.14 M/mm3 (4.00-5.60); RDW 16.3 % (11.9-15.9); WHITE BLOOD COUNT 4.9 K/mm3 (4.0-10.0)
[2022-08-22 09:49] LABS: CALCIUM 7.8 mg/dL (8.5-10.1)
[2022-08-22 09:51] LABS: ALBUMIN 2.1 g/dl (3.4-5.0); MAGNESIUM 2.3 mg/dL (1.8-2.4)
[2022-08-22 09:53] LABS: CREATININE 3.2 mg/dL (0.55-1.3); PHOSPHOROUS 3.8 mg/dL (2.5-4.9)
[2022-08-22 09:55] LABS: BILIRUBIN,TOTAL 0.3 mg/dL (0.2-1); TOT PROT 5.5 g/dl (6.4-8.2)
[2022-08-22] MEDS: FINASTERIDE 5 MG TABLET (FP) PO SCH (11:23)
[2022-08-22] MEDS: ASPIRIN COATED 81 MG TABLET.EC PO SCH (11:23)
[2022-08-22] MEDS: FERROUS SO4 325 MG TABLET (FP) PO SCH (11:24)
[2022-08-22] MEDS ORDERED: SODIUM CHLORIDE 0.45% 1,000 ML IV SCH (11:45)
[2022-08-22] MEDS: DEXTROSE 5%-0.45% SALINE 1,000 ML IV SCH (12:18)
[2022-08-22] MEDS: LACTOBACILLUS ACIDOPHILUS 1 TABLET PO SCH (22:55)
[2022-08-22] MEDS: ROSUVASTATIN CA 5 MG TABLET PO SCH (22:55)
[2022-08-23] MEDS: INSULIN SLIDING SCALE (NOVOLOG) 1 VIAL SQ SCH ×4 (07:00→22:57)
[2022-08-23] MEDS: HEPARIN NA (PORCINE) 5,000 UNITS/ML 1ML VIAL SQ SCH ×3 (07:00→22:07)
[2022-08-23] MEDS: TAMSULOSIN HCL 0.4 MG CAP PO SCH (09:20)
[2022-08-23] MEDS: ASPIRIN COATED 81 MG TABLET.EC PO SCH (09:20)
[2022-08-23] MEDS: FERROUS SO4 325 MG TABLET (FP) PO SCH (09:20)
[2022-08-23] MEDS: FINASTERIDE 5 MG TABLET (FP) PO SCH (09:20)
[2022-08-23] MEDS: ERTAPENEM SODIUM 0.5 GM in SODIUM CHLORIDE 50 ML IVPB SCH (09:22)
[2022-08-23] MEDS ORDERED: ERTAPENEM SODIUM 0.5 GM in SODIUM CHLORIDE 50 ML IVPB SCH (10:00)
[2022-08-23 10:41] LABS: BASO % 0.4 % (0-2.0); HEMATOCRIT 28.2 % (35.4-49); HEMOGLOBIN 9.5 GM/dL (11.7-16.9); LYMPH % 9.1 % (8-40); MCH 30.5 pg (25.7-33.7); MCHC 33.9 g/dl (32.0-35.9); MEAN PLT VOLUME 7.1 fl (7.5-11.1); MONO % 13.5 % (3.8-10.2); PLATELET COUNT 135 10^3/uL (134-434); RBC 3.13 M/mm3 (4.00-5.60); RDW 16.7 % (11.9-15.9); WHITE BLOOD COUNT 5.3 K/mm3 (4.0-10.0)
[2022-08-23 11:00] LABS: CALCIUM 8.2 mg/dL (8.5-10.1); MAGNESIUM 2.2 mg/dL (1.8-2.4)
[2022-08-23 11:01] LABS: ALBUMIN 2.2 g/dl (3.4-5.0)
[2022-08-23 11:04] LABS: CREATININE 2.7 mg/dL (0.55-1.3); PHOSPHOROUS 3.2 mg/dL (2.5-4.9)
[2022-08-23 11:05] LABS: BILIRUBIN,TOTAL 0.3 mg/dL (0.2-1); TOT PROT 5.8 g/dl (6.4-8.2)
[2022-08-23] MEDS: DEXTROSE 5%-0.45% SALINE 1,000 ML IV SCH ×2 (12:48→17:13)
[2022-08-23] MEDS ORDERED: FUROSEMIDE 20 MG TABLET (FP) PO ONE (16:24)
[2022-08-23] MEDS: SODIUM ZIRCONIUM CYCLOSILICATE (LOKELMA) 5 GM PACKET PO SCH ×2 (17:29→22:06)
[2022-08-23] MEDS: ROSUVASTATIN CA 5 MG TABLET PO SCH (22:05)
[2022-08-23] MEDS: LACTOBACILLUS ACIDOPHILUS 1 TABLET PO SCH (22:06)
[2022-08-23] MEDS: METOPROLOL TARTRATE 50 MG TABLET (FP) PO SCH (22:06)
[2022-08-24] MEDS: DEXTROSE 5%-0.45% SALINE 1,000 ML IV SCH ×3 (02:01→23:15)
[2022-08-24] MEDS: HEPARIN NA (PORCINE) 5,000 UNITS/ML 1ML VIAL SQ SCH ×3 (06:21→21:34)
[2022-08-24] MEDS ORDERED: INSULIN (LEVEMIR) 100 UNITS/ML UNITS SQ ONE (06:40)
[2022-08-24] MEDS ORDERED: INSULIN (NOVOLOG) ASPART 100 UNITS/ML 10ML VIAL ONE (06:40)
[2022-08-24] MEDS: INSULIN SLIDING SCALE (NOVOLOG) 1 VIAL SQ SCH ×4 (07:58→21:41)
[2022-08-24] MEDS: TAMSULOSIN HCL 0.4 MG CAP PO SCH (08:08)
[2022-08-24 08:54] LABS: BASO % 0.5 % (0-2.0); EOS % 3.6 % (0-4.5); HEMATOCRIT 30.2 % (35.4-49); HEMOGLOBIN 9.5 GM/dL (11.7-16.9); MCH 29.2 pg (25.7-33.7); MCHC 31.7 g/dl (32.0-35.9); MEAN CELL VOLUME 92.3 fl (80-96); MONO % 12.3 % (3.8-10.2); NEUT % 72.6 % (42.8-82.8); PLATELET COUNT 149 10^3/uL (134-434); RBC 3.27 M/mm3 (4.00-5.60); RDW 16.1 % (11.9-15.9); WHITE BLOOD COUNT 5.3 K/mm3 (4.0-10.0)
[2022-08-24 09:15] LABS: ALBUMIN 2.3 g/dl (3.4-5.0); BLOOD UREA NITROGEN 50.1 mg/dL (7-18); CALCIUM 8.1 mg/dL (8.5-10.1)
[2022-08-24 09:19] LABS: CREATININE 2.2 mg/dL (0.55-1.3); PHOSPHOROUS 3.1 mg/dL (2.5-4.9)
[2022-08-24 09:20] LABS: BILIRUBIN,TOTAL 0.3 mg/dL (0.2-1); TOT PROT 5.7 g/dl (6.4-8.2)
[2022-08-24] MEDS: SODIUM ZIRCONIUM CYCLOSILICATE (LOKELMA) 5 GM PACKET PO SCH (09:41)
[2022-08-24] MEDS: ASPIRIN COATED 81 MG TABLET.EC PO SCH (09:42)
[2022-08-24] MEDS: FERROUS SO4 325 MG TABLET (FP) PO SCH (09:42)
[2022-08-24] MEDS: METOPROLOL TARTRATE 50 MG TABLET (FP) PO SCH ×2 (09:42→21:34)
[2022-08-24] MEDS: FINASTERIDE 5 MG TABLET (FP) PO SCH (09:43)
[2022-08-24] MEDS: ERTAPENEM SODIUM 0.5 GM in SODIUM CHLORIDE 50 ML IVPB SCH (09:43)
[2022-08-24] MEDS ORDERED: ISOSORBIDE MONONITRATE 30 MG TAB.SR.24H (FP) PO SCH (10:00)
[2022-08-24] MEDS ORDERED: COLLAGENASE CLOSTRIDIUM HIST. 30 GRAMS TUBE TP SCH (12:15)
[2022-08-24] MEDS: ROSUVASTATIN CA 5 MG TABLET PO SCH (21:34)
[2022-08-24] MEDS: LACTOBACILLUS ACIDOPHILUS 1 TABLET PO SCH (21:34)
[2022-08-24] MEDS ORDERED: DEXTROSE 50%-WATER 25 GM/50 ML DISP.SYRIN IVPUSH PRN (22:21)
[2022-08-25] MEDS: HEPARIN NA (PORCINE) 5,000 UNITS/ML 1ML VIAL SQ SCH ×3 (06:46→22:23)
[2022-08-25] MEDS: INSULIN SLIDING SCALE (NOVOLOG) 1 VIAL SQ SCH ×3 (06:52→16:23)
[2022-08-25] MEDS: DEXTROSE 5%-0.45% SALINE 1,000 ML IV SCH ×2 (08:06→13:27)
[2022-08-25] MEDS: ASPIRIN COATED 81 MG TABLET.EC PO SCH (09:41)
[2022-08-25] MEDS: FINASTERIDE 5 MG TABLET (FP) PO SCH (09:41)
[2022-08-25] MEDS: TAMSULOSIN HCL 0.4 MG CAP PO SCH (09:41)
[2022-08-25] MEDS: FERROUS SO4 325 MG TABLET (FP) PO SCH (09:41)
[2022-08-25 09:59] LABS: BASO % 0.6 % (0-2.0); EOS % 2.8 % (0-4.5); HEMATOCRIT 28.9 % (35.4-49); HEMOGLOBIN 9.4 GM/dL (11.7-16.9); LYMPH % 9.1 % (8-40); MCH 29.2 pg (25.7-33.7); MCHC 32.4 g/dl (32.0-35.9); MEAN CELL VOLUME 90.4 fl (80-96); MEAN PLT VOLUME 7.2 fl (7.5-11.1); MONO % 10.4 % (3.8-10.2); NEUT % 77.1 % (42.8-82.8); PLATELET COUNT 139 10^3/uL (134-434); RDW 15.6 % (11.9-15.9); WHITE BLOOD COUNT 5.5 K/mm3 (4.0-10.0)
[2022-08-25 10:18] LABS: ALBUMIN 2.3 g/dl (3.4-5.0); BLOOD UREA NITROGEN 41.2 mg/dL (7-18); CALCIUM 8.5 mg/dL (8.5-10.1)
[2022-08-25 10:19] LABS: MAGNESIUM 1.8 mg/dL (1.8-2.4)
[2022-08-25 10:21] LABS: CREATININE 1.9 mg/dL (0.55-1.3); PHOSPHOROUS 2.9 mg/dL (2.5-4.9)
[2022-08-25 10:22] LABS: BILIRUBIN,TOTAL 0.3 mg/dL (0.2-1); TOT PROT 5.7 g/dl (6.4-8.2)
[2022-08-25] MEDS: ERTAPENEM SODIUM 0.5 GM in SODIUM CHLORIDE 50 ML IVPB SCH (10:45)
[2022-08-25] MEDS: COLLAGENASE CLOSTRIDIUM HIST. 30 GRAMS TUBE TP SCH (12:23)
[2022-08-25] MEDS: METOPROLOL TARTRATE 50 MG TABLET (FP) PO SCH (13:27)
[2022-08-25] MEDS ORDERED: DEXTROSE 5%-0.45% SALINE 1,000 ML IV SCH (14:57)
[2022-08-25] MEDS ORDERED: SODIUM CHLORIDE 0.45% 1,000 ML IV SCH (17:45)
[2022-08-25] MEDS: LACTOBACILLUS ACIDOPHILUS 1 TABLET PO SCH (22:23)
[2022-08-25] MEDS: ROSUVASTATIN CA 5 MG TABLET PO SCH (22:23)
[2022-08-26] MEDS: HEPARIN NA (PORCINE) 5,000 UNITS/ML 1ML VIAL SQ SCH ×3 (05:47→21:51)
[2022-08-26] MEDS: FINASTERIDE 5 MG TABLET (FP) PO SCH (10:16)
[2022-08-26] MEDS: ASPIRIN COATED 81 MG TABLET.EC PO SCH (10:16)
[2022-08-26] MEDS: FERROUS SO4 325 MG TABLET (FP) PO SCH (10:16)
[2022-08-26] MEDS: TAMSULOSIN HCL 0.4 MG CAP PO SCH (10:16)
[2022-08-26 10:28] LABS: BASO % 0.6 % (0-2.0); EOS % 3.7 % (0-4.5); HEMATOCRIT 26.3 % (35.4-49); HEMOGLOBIN 8.9 GM/dL (11.7-16.9); LYMPH % 12.4 % (8-40); MCH 30.3 pg (25.7-33.7); MEAN CELL VOLUME 89.2 fl (80-96); MEAN PLT VOLUME 6.8 fl (7.5-11.1); MONO % 11.4 % (3.8-10.2); NEUT % 71.9 % (42.8-82.8); PLATELET COUNT 138 10^3/uL (134-434); RBC 2.95 M/mm3 (4.00-5.60); RDW 15.4 % (11.9-15.9); WHITE BLOOD COUNT 4.9 K/mm3 (4.0-10.0)
[2022-08-26 10:51] LABS: BLOOD UREA NITROGEN 36.7 mg/dL (7-18); CALCIUM 7.9 mg/dL (8.5-10.1)
[2022-08-26 10:52] LABS: ALBUMIN 2.2 g/dl (3.4-5.0); MAGNESIUM 1.9 mg/dL (1.8-2.4)
[2022-08-26 10:55] LABS: CREATININE 1.9 mg/dL (0.55-1.3); PHOSPHOROUS 2.8 mg/dL (2.5-4.9)
[2022-08-26 10:56] LABS: BILIRUBIN,TOTAL 0.3 mg/dL (0.2-1); TOT PROT 5.6 g/dl (6.4-8.2)
[2022-08-26] MEDS: ERTAPENEM SODIUM 0.5 GM in SODIUM CHLORIDE 50 ML IVPB SCH (11:52)
[2022-08-26] MEDS: METOPROLOL TARTRATE 50 MG TABLET (FP) PO SCH ×2 (13:25→21:51)
[2022-08-26] MEDS: COLLAGENASE CLOSTRIDIUM HIST. 30 GRAMS TUBE TP SCH (17:05)
[2022-08-26] MEDS: ROSUVASTATIN CA 5 MG TABLET PO SCH (21:51)
[2022-08-26] MEDS: LACTOBACILLUS ACIDOPHILUS 1 TABLET PO SCH (21:51)
[2022-08-27] MEDS: HEPARIN NA (PORCINE) 5,000 UNITS/ML 1ML VIAL SQ SCH ×3 (06:25→22:12)
[2022-08-27] MEDS ORDERED: INSULIN (NOVOLOG) ASPART 100 UNITS/ML 10ML VIAL ONE (07:08)
[2022-08-27] MEDS ORDERED: INSULIN (LEVEMIR) 100 UNITS/ML UNITS SQ ONE (07:08)
[2022-08-27 08:23] LABS: BASO % 0.7 % (0-2.0); EOS % 4.3 % (0-4.5); HEMATOCRIT 25.4 % (35.4-49); HEMOGLOBIN 8.6 GM/dL (11.7-16.9); MCH 30.6 pg (25.7-33.7); MCHC 33.8 g/dl (32.0-35.9); MEAN CELL VOLUME 90.5 fl (80-96); MEAN PLT VOLUME 6.9 fl (7.5-11.1); MONO % 11.6 % (3.8-10.2); NEUT % 70.4 % (42.8-82.8); PLATELET COUNT 138 10^3/uL (134-434); RDW 15.3 % (11.9-15.9); WHITE BLOOD COUNT 4.8 K/mm3 (4.0-10.0)
[2022-08-27 08:45] LABS: CALCIUM 8.1 mg/dL (8.5-10.1)
[2022-08-27 08:46] LABS: ALBUMIN 2.3 g/dl (3.4-5.0); BLOOD UREA NITROGEN 37.3 mg/dL (7-18); MAGNESIUM 1.9 mg/dL (1.8-2.4)
[2022-08-27 08:49] LABS: CREATININE 1.9 mg/dL (0.55-1.3)
[2022-08-27 08:50] LABS: BILIRUBIN,TOTAL 0.3 mg/dL (0.2-1); TOT PROT 5.6 g/dl (6.4-8.2)
[2022-08-27] MEDS: FERROUS SO4 325 MG TABLET (FP) PO SCH (09:22)
[2022-08-27] MEDS: TAMSULOSIN HCL 0.4 MG CAP PO SCH (09:22)
[2022-08-27] MEDS: METOPROLOL TARTRATE 50 MG TABLET (FP) PO SCH ×2 (09:23→22:12)
[2022-08-27] MEDS: FINASTERIDE 5 MG TABLET (FP) PO SCH (09:23)
[2022-08-27] MEDS: ERTAPENEM SODIUM 0.5 GM in SODIUM CHLORIDE 50 ML IVPB SCH (09:23)
[2022-08-27] MEDS: ASPIRIN COATED 81 MG TABLET.EC PO SCH (09:23)
[2022-08-27] MEDS: COLLAGENASE CLOSTRIDIUM HIST. 30 GRAMS TUBE TP SCH (09:25)
[2022-08-27] MEDS: LACTOBACILLUS ACIDOPHILUS 1 TABLET PO SCH (22:12)
[2022-08-27] MEDS: ROSUVASTATIN CA 5 MG TABLET PO SCH (22:12)
[2022-08-28] MEDS: HEPARIN NA (PORCINE) 5,000 UNITS/ML 1ML VIAL SQ SCH ×3 (06:33→21:34)
[2022-08-28 09:55] LABS: BASO % 0.6 % (0-2.0); EOS % 4.6 % (0-4.5); HEMATOCRIT 27.6 % (35.4-49); LYMPH % 13.8 % (8-40); MCH 29.3 pg (25.7-33.7); MCHC 32.6 g/dl (32.0-35.9); MEAN CELL VOLUME 89.8 fl (80-96); MEAN PLT VOLUME 7.5 fl (7.5-11.1); MONO % 9.5 % (3.8-10.2); NEUT % 71.5 % (42.8-82.8); PLATELET COUNT 163 10^3/uL (134-434); RBC 3.08 M/mm3 (4.00-5.60); RDW 15.2 % (11.9-15.9); WHITE BLOOD COUNT 5.1 K/mm3 (4.0-10.0)
[2022-08-28 10:20] LABS: ALBUMIN 2.3 g/dl (3.4-5.0); BLOOD UREA NITROGEN 35.6 mg/dL (7-18); CALCIUM 8.3 mg/dL (8.5-10.1); MAGNESIUM 1.8 mg/dL (1.8-2.4)
[2022-08-28 10:23] LABS: CREATININE 1.8 mg/dL (0.55-1.3)
[2022-08-28 10:24] LABS: TOT PROT 5.7 g/dl (6.4-8.2)
[2022-08-28 10:25] LABS: BILIRUBIN,TOTAL 0.3 mg/dL (0.2-1)
[2022-08-28] MEDS: ASPIRIN COATED 81 MG TABLET.EC PO SCH (10:44)
[2022-08-28] MEDS: TAMSULOSIN HCL 0.4 MG CAP PO SCH (10:44)
[2022-08-28] MEDS: FERROUS SO4 325 MG TABLET (FP) PO SCH (10:44)
[2022-08-28] MEDS: COLLAGENASE CLOSTRIDIUM HIST. 30 GRAMS TUBE TP SCH (10:45)
[2022-08-28] MEDS: FINASTERIDE 5 MG TABLET (FP) PO SCH (10:45)
[2022-08-28] MEDS: ERTAPENEM SODIUM 0.5 GM in SODIUM CHLORIDE 50 ML IVPB SCH (10:45)
[2022-08-28] MEDS: METOPROLOL TARTRATE 50 MG TABLET (FP) PO SCH ×2 (10:45→21:34)
[2022-08-28] MEDS: ROSUVASTATIN CA 5 MG TABLET PO SCH (21:34)
[2022-08-28] MEDS: LACTOBACILLUS ACIDOPHILUS 1 TABLET PO SCH (21:34)
[2022-08-29] MEDS: FERROUS SO4 325 MG TABLET (FP) PO SCH (09:58)
[2022-08-29] MEDS: METOPROLOL TARTRATE 50 MG TABLET (FP) PO SCH ×2 (09:58→21:18)
[2022-08-29] MEDS: ASPIRIN COATED 81 MG TABLET.EC PO SCH (09:58)
[2022-08-29] MEDS: FINASTERIDE 5 MG TABLET (FP) PO SCH (09:58)
[2022-08-29] MEDS: TAMSULOSIN HCL 0.4 MG CAP PO SCH (09:59)
[2022-08-29] MEDS: COLLAGENASE CLOSTRIDIUM HIST. 30 GRAMS TUBE TP SCH (09:59)
[2022-08-29] MEDS: LACTOBACILLUS ACIDOPHILUS 1 TABLET PO SCH (21:18)
[2022-08-29] MEDS: ROSUVASTATIN CA 5 MG TABLET PO SCH (21:18)
[2022-08-30] MEDS: FERROUS SO4 325 MG TABLET (FP) PO SCH (11:10)
[2022-08-30] MEDS: ASPIRIN COATED 81 MG TABLET.EC PO SCH (11:10)
[2022-08-30] MEDS: TAMSULOSIN HCL 0.4 MG CAP PO SCH (11:10)
[2022-08-30] MEDS: FINASTERIDE 5 MG TABLET (FP) PO SCH (11:10)
[2022-08-30] MEDS: METOPROLOL TARTRATE 50 MG TABLET (FP) PO SCH (11:10)
[2022-08-30 11:18] VITALS: RESP 20
[2022-08-30 15:46] VITALS: TEMP 97.8
[2022-08-30] MEDS ORDERED: SODIUM CHLORIDE 500 ML IV STA (16:35)
[2022-08-30] MEDS: COLLAGENASE CLOSTRIDIUM HIST. 30 GRAMS TUBE TP SCH (16:42)
[2022-08-30 17:23] VITALS: BP 123/50; PULSE 52
[2022-08-30] MEDS ORDERED: METOPROLOL TARTRATE 25 MG TABLET (FP) PO SCH (22:00)
== END 2022-08-30 17:30 | DRG 177 ==
LOC: JER 23:09 → JERBED 23:40 → J8W 08-22 04:42 → OBSVTOIN 08-23 13:51
PROVIDERS: ADMIT Internal Medicine; ATTEND Internal Medicine
DX: U07.1 COVID-19 (principal); G93.41 Metabolic encephalopathy; N17.9 Acute kidney failure, unspecified; E87.1 Hypo-osmolality and hyponatremia; N39.0 Urinary tract infection, site not specified; I25.10 Atherosclerotic heart disease of native coronary artery without angina pectoris; N40.0 Benign prostatic hyperplasia without lower urinary tract symptoms; Z95.1 Presence of aortocoronary bypass graft; F32.A Depression, unspecified; E87.5 Hyperkalemia; E78.5 Hyperlipidemia, unspecified; D64.9 Anemia, unspecified; C67.9 Malignant neoplasm of bladder, unspecified; E11.649 Type 2 diabetes mellitus with hypoglycemia without coma; D63.8 Anemia in other chronic diseases classified elsewhere; R41.82 Altered mental status, unspecified; R31.9 Hematuria, unspecified; B96.1 Klebsiella pneumoniae [K. pneumoniae] as the cause of diseases classified elsewhere; E11.22 Type 2 diabetes mellitus with diabetic chronic kidney disease; N18.9 Chronic kidney disease, unspecified; I12.9 Hypertensive chronic kidney disease with stage 1 through stage 4 chronic kidney disease, or unspecified chronic kidney disease; L89.321 Pressure ulcer of left buttock, stage 1; L89.311 Pressure ulcer of right buttock, stage 1
CPT/HCPCS: 36415; 71045-TC-FY; 76775-TC; 80053; 81003; 82550; 82962; 83735; 84100; 85025; 87086; 87186; 93005; 93010; 97116-GP; 97161-GP; 99285-25; C9803-CS; G0378; J1644; U0003; U0005

== ENCOUNTER 2022-09-21 04:02 | Inpatient (IN) | payer MEDICARE, OTHER ==
[2022-09-21] MEDS ORDERED: ACETAMINOPHEN INJECTION 100 ML IVPB ONE (05:15)
[2022-09-21] MEDS ORDERED: ACETAMINOPHEN 1000 MG/100 ML BAG IVPB ONE (05:41)
[2022-09-21 05:59] LABS: BASO % 0.3 % (0-2.0); EOS % 2.3 % (0-4.5); HEMATOCRIT 28.9 % (35.4-49); HEMOGLOBIN 9.5 GM/dL (11.7-16.9); LYMPH % 7.6 % (8-40); MCH 29.8 pg (25.7-33.7); MCHC 32.7 g/dl (32.0-35.9); MEAN PLT VOLUME 7.3 fl (7.5-11.1); MONO % 9.4 % (3.8-10.2); NEUT % 80.4 % (42.8-82.8); PLATELET COUNT 212 10^3/uL (134-434); RBC 3.18 M/mm3 (4.00-5.60); RDW 14.7 % (11.9-15.9); WHITE BLOOD COUNT 7.8 K/mm3 (4.0-10.0)
[2022-09-21 06:12] LABS: INR 1.05 (0.83-1.09); PROTHROMBIN TIME (PATIENT) 12.1 SEC (9.7-13.0)
[2022-09-21 06:19] LABS: ALBUMIN 2.7 g/dl (3.4-5.0); BLOOD UREA NITROGEN 54.2 mg/dL (7-18); CALCIUM 8.3 mg/dL (8.5-10.1)
[2022-09-21 06:22] LABS: CREATININE 2.7 mg/dL (0.55-1.3)
[2022-09-21 06:23] LABS: TOT PROT 6.8 g/dl (6.4-8.2)
[2022-09-21 06:24] LABS: BILIRUBIN,TOTAL 0.3 mg/dL (0.2-1)
[2022-09-21] MEDS ORDERED: morphine CARPU-JECT 2 MG/1 ML DISP.SYRIN IM ONE (06:29)
[2022-09-21] MEDS ORDERED: morphine SULFATE 4 MG/ML VIAL ONE (06:37)
[2022-09-21] MEDS ORDERED: CEFTRIAXONE 1,000 MG in DEXTROSE 5%-WATER - 50 ML IVPB ONE (06:40)
[2022-09-21] MEDS ORDERED: CEFTRIAXONE 1 GM/50 ML BAG ONE (06:49)
[2022-09-21 08:11] LABS: EPI CELLS 9 /uL (0-25.1); HYALINE CASTS 2 /uL (0-3.1); PH,URINE 7.5 (5.0-8.0); URINE APPEARANCE TURBID; URINE BACTERIA 6211 /uL (0-1359); URINE BILIRUBIN NEGATIVE (NEGATIVE); URINE COLOR YELLOW; URINE GLUCOSE (UA) NEGATIVE (NEGATIVE); URINE KETONE NEGATIVE (NEGATIVE); URINE LEUK ESTERASE 3+ (NEGATIVE); URINE NITRITE NEGATIVE (NEGATIVE); URINE PROTEIN 2+ (NEGATIVE); URINE RBC 532 /uL (0-23.9); URINE UROBILINOGEN 0.2 mg/dL (0.2-1.0); URINE WBC 5452 /uL (0-25.8)
[2022-09-21] MEDS ORDERED: ACETAMINOPHEN 500 MG TABLET (FP) PO ONE (10:46)
[2022-09-21] MEDS ORDERED: ACETAMINOPHEN 325 MG TABLET (FP) ONE (11:49)
[2022-09-21] MEDS: SODIUM CHLORIDE 0.45% 250 ML IV SCH (12:16)
[2022-09-21] MEDS ORDERED: SODIUM CHLORIDE 0.45% 1,000 ML IV SCH (17:00)
[2022-09-21] MEDS ORDERED: SODIUM ZIRCONIUM CYCLOSILICATE (LOKELMA) 5 GM PACKET PO SCH (17:00)
[2022-09-21] MEDS ORDERED: SODIUM ZIRCONIUM CYCLOSILICATE (LOKELMA) 5 GM PACKET ONE (18:17)
[2022-09-21] MEDS ORDERED: CALAMINE 8% TOPICAL LOTION 177 ML BOTTLE TP PRN (18:40)
[2022-09-21] MEDS ORDERED: morphine CARPU-JECT 2 MG/1 ML DISP.SYRIN IVPUSH STA (18:56)
[2022-09-21] MEDS: METOPROLOL TARTRATE 25 MG TABLET (FP) PO SCH (22:26)
[2022-09-21] MEDS: ROSUVASTATIN CA 5 MG TABLET PO SCH (22:26)
[2022-09-21] MEDS: INSULIN SLIDING SCALE (NOVOLOG) 1 VIAL SQ SCH (22:29)
[2022-09-22 01:28] VITALS: BMI 23.8
[2022-09-22] MEDS: INSULIN SLIDING SCALE (NOVOLOG) 1 VIAL SQ SCH ×4 (06:00→21:27)
[2022-09-22] MEDS: SODIUM CHLORIDE 0.45% 250 ML IV SCH (08:36)
[2022-09-22] MEDS: BACITRACIN 15 GM TUBE TOPICAL OINTMENT TP SCH (09:36)
[2022-09-22] MEDS: ISOSORBIDE MONONITRATE 30 MG TAB.SR.24H (FP) PO SCH (09:37)
[2022-09-22] MEDS: FERROUS SO4 325 MG TABLET (FP) PO SCH (09:37)
[2022-09-22] MEDS: COLLAGENASE CLOSTRIDIUM HIST. 30 GRAMS TUBE TP SCH ×2 (09:37→10:47)
[2022-09-22] MEDS: TAMSULOSIN HCL 0.4 MG CAP PO SCH (09:37)
[2022-09-22] MEDS: ASPIRIN COATED 81 MG TABLET.EC PO SCH (09:37)
[2022-09-22] MEDS: METOPROLOL TARTRATE 25 MG TABLET (FP) PO SCH ×2 (09:37→21:26)
[2022-09-22] MEDS: FINASTERIDE 5 MG TABLET (FP) PO SCH (09:37)
[2022-09-22] MEDS ORDERED: CEFTRIAXONE 1 GM in DEXTROSE 5%-WATER - 50 ML IVPB SCH (10:00)
[2022-09-22 11:16] LABS: BASO % 0.5 % (0-2.0); EOS % 2.3 % (0-4.5); HEMATOCRIT 28.3 % (35.4-49); HEMOGLOBIN 9.3 GM/dL (11.7-16.9); LYMPH % 7.3 % (8-40); MCH 29.9 pg (25.7-33.7); MCHC 32.8 g/dl (32.0-35.9); MEAN CELL VOLUME 91.2 fl (80-96); MEAN PLT VOLUME 7.4 fl (7.5-11.1); NEUT % 81.9 % (42.8-82.8); PLATELET COUNT 201 10^3/uL (134-434); RBC 3.11 M/mm3 (4.00-5.60); RDW 15.1 % (11.9-15.9)
[2022-09-22 11:41] LABS: ALBUMIN 2.3 g/dl (3.4-5.0); BLOOD UREA NITROGEN 63.8 mg/dL (7-18); CALCIUM 8.2 mg/dL (8.5-10.1)
[2022-09-22 11:44] LABS: CREATININE 2.9 mg/dL (0.55-1.3)
[2022-09-22 11:45] LABS: BILIRUBIN,TOTAL 0.4 mg/dL (0.2-1); TOT PROT 6.2 g/dl (6.4-8.2)
[2022-09-22 11:55] LABS: IRON SERUM 16 ug/dL (50-175)
[2022-09-22 11:56] LABS: TOTAL IRON BINDING CAPACITY 209 ug/dL (250-450)
[2022-09-22] MEDS: SODIUM CHLORIDE 0.45% 1,000 ML IV SCH ×2 (13:07→14:07)
[2022-09-22] MEDS ORDERED: ERTAPENEM SODIUM 1 GM in SODIUM CHLORIDE 50 ML IVPB SCH (13:30)
[2022-09-22] MEDS ORDERED: IRON SUCROSE INJECTION 200 MG in SODIUM CHLORIDE 90 ML IVPB ONE (14:00)
[2022-09-22] MEDS: ERTAPENEM SODIUM 0.5 GM in SODIUM CHLORIDE 50 ML IVPB SCH (15:23)
[2022-09-22] MEDS ORDERED: INSULIN (NOVOLOG) ASPART 100 UNITS/ML 10ML VIAL ONE (20:47)
[2022-09-22] MEDS: ROSUVASTATIN CA 5 MG TABLET PO SCH (21:26)
[2022-09-23] MEDS: ACETAMINOPHEN 325 MG TABLET (FP) PO PRN ×2 (06:26→21:17)
[2022-09-23] MEDS: INSULIN SLIDING SCALE (NOVOLOG) 1 VIAL SQ SCH ×4 (06:33→21:15)
[2022-09-23] MEDS: TAMSULOSIN HCL 0.4 MG CAP PO SCH (09:18)
[2022-09-23] MEDS: FERROUS SO4 325 MG TABLET (FP) PO SCH (09:18)
[2022-09-23] MEDS: ISOSORBIDE MONONITRATE 30 MG TAB.SR.24H (FP) PO SCH (09:19)
[2022-09-23] MEDS: BACITRACIN 15 GM TUBE TOPICAL OINTMENT TP SCH (09:19)
[2022-09-23] MEDS: FINASTERIDE 5 MG TABLET (FP) PO SCH (09:19)
[2022-09-23] MEDS: ERTAPENEM SODIUM 0.5 GM in SODIUM CHLORIDE 50 ML IVPB SCH (09:19)
[2022-09-23] MEDS: METOPROLOL TARTRATE 25 MG TABLET (FP) PO SCH ×2 (09:19→21:09)
[2022-09-23 10:15] LABS: ALBUMIN 2.1 g/dl (3.4-5.0); BLOOD UREA NITROGEN 60.4 mg/dL (7-18); CALCIUM 7.9 mg/dL (8.5-10.1)
[2022-09-23 10:19] LABS: CREATININE 2.8 mg/dL (0.55-1.3)
[2022-09-23 10:20] LABS: BILIRUBIN,TOTAL 0.2 mg/dL (0.2-1); TOT PROT 5.7 g/dl (6.4-8.2)
[2022-09-23] MEDS: COLLAGENASE CLOSTRIDIUM HIST. 30 GRAMS TUBE TP SCH (10:45)
[2022-09-23] MEDS: ASPIRIN COATED 81 MG TABLET.EC PO SCH (11:07)
[2022-09-23] MEDS: ROSUVASTATIN CA 5 MG TABLET PO SCH (21:09)
[2022-09-24] MEDS: INSULIN SLIDING SCALE (NOVOLOG) 1 VIAL SQ SCH ×4 (06:22→21:27)
[2022-09-24] MEDS: TAMSULOSIN HCL 0.4 MG CAP PO SCH (09:16)
[2022-09-24] MEDS: METOPROLOL TARTRATE 25 MG TABLET (FP) PO SCH ×2 (10:17→21:02)
[2022-09-24] MEDS: FINASTERIDE 5 MG TABLET (FP) PO SCH (10:17)
[2022-09-24] MEDS: FERROUS SO4 325 MG TABLET (FP) PO SCH (10:17)
[2022-09-24] MEDS: ISOSORBIDE MONONITRATE 30 MG TAB.SR.24H (FP) PO SCH (10:17)
[2022-09-24] MEDS: ERTAPENEM SODIUM 0.5 GM in SODIUM CHLORIDE 50 ML IVPB SCH (10:17)
[2022-09-24] MEDS: COLLAGENASE CLOSTRIDIUM HIST. 30 GRAMS TUBE TP SCH (10:18)
[2022-09-24] MEDS: BACITRACIN 15 GM TUBE TOPICAL OINTMENT TP SCH (10:19)
[2022-09-24] MEDS: ACETAMINOPHEN 325 MG TABLET (FP) PO PRN ×2 (11:00→20:51)
[2022-09-24 11:57] LABS: BASO % 0.4 % (0-2.0); EOS % 2.7 % (0-4.5); HEMATOCRIT 25.5 % (35.4-49); HEMOGLOBIN 8.3 GM/dL (11.7-16.9); LYMPH % 6.1 % (8-40); MCH 29.7 pg (25.7-33.7); MCHC 32.7 g/dl (32.0-35.9); MEAN CELL VOLUME 90.8 fl (80-96); MEAN PLT VOLUME 7.2 fl (7.5-11.1); MONO % 8.4 % (3.8-10.2); NEUT % 82.4 % (42.8-82.8); PLATELET COUNT 221 10^3/uL (134-434); RDW 14.6 % (11.9-15.9); WHITE BLOOD COUNT 8.3 K/mm3 (4.0-10.0)
[2022-09-24 12:25] LABS: CALCIUM 8.4 mg/dL (8.5-10.1)
[2022-09-24 12:26] LABS: ALBUMIN 2.3 g/dl (3.4-5.0); BLOOD UREA NITROGEN 55.1 mg/dL (7-18)
[2022-09-24 12:29] LABS: CREATININE 2.6 mg/dL (0.55-1.3)
[2022-09-24 12:30] LABS: BILIRUBIN,TOTAL 0.1 mg/dL (0.2-1)
[2022-09-24] MEDS: ROSUVASTATIN CA 5 MG TABLET PO SCH (21:02)
[2022-09-25] MEDS ORDERED: INSULIN (NOVOLOG) ASPART 100 UNITS/ML 10ML VIAL ONE ×2 (05:37→06:50)
[2022-09-25] MEDS: INSULIN SLIDING SCALE (NOVOLOG) 1 VIAL SQ SCH ×4 (06:28→22:06)
[2022-09-25] MEDS: FINASTERIDE 5 MG TABLET (FP) PO SCH (09:39)
[2022-09-25] MEDS: METOPROLOL TARTRATE 25 MG TABLET (FP) PO SCH ×2 (09:40→22:05)
[2022-09-25] MEDS: FERROUS SO4 325 MG TABLET (FP) PO SCH (09:40)
[2022-09-25] MEDS: TAMSULOSIN HCL 0.4 MG CAP PO SCH (09:40)
[2022-09-25] MEDS: ISOSORBIDE MONONITRATE 30 MG TAB.SR.24H (FP) PO SCH (09:40)
[2022-09-25] MEDS: ERTAPENEM SODIUM 0.5 GM in SODIUM CHLORIDE 50 ML IVPB SCH (10:57)
[2022-09-25] MEDS: COLLAGENASE CLOSTRIDIUM HIST. 30 GRAMS TUBE TP SCH (13:50)
[2022-09-25] MEDS: BACITRACIN 15 GM TUBE TOPICAL OINTMENT TP SCH (13:50)
[2022-09-25] MEDS: ROSUVASTATIN CA 5 MG TABLET PO SCH (22:06)
[2022-09-26] MEDS: INSULIN SLIDING SCALE (NOVOLOG) 1 VIAL SQ SCH ×4 (06:06→22:15)
[2022-09-26] MEDS: METOPROLOL TARTRATE 25 MG TABLET (FP) PO SCH ×2 (10:07→22:15)
[2022-09-26] MEDS: FERROUS SO4 325 MG TABLET (FP) PO SCH (10:07)
[2022-09-26] MEDS: ISOSORBIDE MONONITRATE 30 MG TAB.SR.24H (FP) PO SCH (10:07)
[2022-09-26] MEDS: TAMSULOSIN HCL 0.4 MG CAP PO SCH (10:07)
[2022-09-26] MEDS: FINASTERIDE 5 MG TABLET (FP) PO SCH (10:07)
[2022-09-26] MEDS: COLLAGENASE CLOSTRIDIUM HIST. 30 GRAMS TUBE TP SCH (10:08)
[2022-09-26] MEDS: BACITRACIN 15 GM TUBE TOPICAL OINTMENT TP SCH (10:09)
[2022-09-26] MEDS: ERTAPENEM SODIUM 0.5 GM in SODIUM CHLORIDE 50 ML IVPB SCH (10:40)
[2022-09-26] MEDS: ROSUVASTATIN CA 5 MG TABLET PO SCH (22:15)
[2022-09-27] MEDS: INSULIN SLIDING SCALE (NOVOLOG) 1 VIAL SQ SCH ×4 (06:06→22:44)
[2022-09-27] MEDS: ISOSORBIDE MONONITRATE 30 MG TAB.SR.24H (FP) PO SCH (10:37)
[2022-09-27] MEDS: METOPROLOL TARTRATE 25 MG TABLET (FP) PO SCH ×2 (10:37→22:44)
[2022-09-27] MEDS: FERROUS SO4 325 MG TABLET (FP) PO SCH (10:37)
[2022-09-27] MEDS: TAMSULOSIN HCL 0.4 MG CAP PO SCH (10:37)
[2022-09-27] MEDS: BACITRACIN 15 GM TUBE TOPICAL OINTMENT TP SCH (10:37)
[2022-09-27] MEDS: ERTAPENEM SODIUM 0.5 GM in SODIUM CHLORIDE 50 ML IVPB SCH (10:37)
[2022-09-27] MEDS: FINASTERIDE 5 MG TABLET (FP) PO SCH (10:38)
[2022-09-27] MEDS: COLLAGENASE CLOSTRIDIUM HIST. 30 GRAMS TUBE TP SCH (10:38)
[2022-09-27 12:23] LABS: BASO % 0.7 % (0-2.0); EOS % 3.9 % (0-4.5); HEMATOCRIT 24.7 % (35.4-49); HEMOGLOBIN 8.4 GM/dL (11.7-16.9); LYMPH % 9.6 % (8-40); MCH 30.3 pg (25.7-33.7); MCHC 33.9 g/dl (32.0-35.9); MEAN CELL VOLUME 89.5 fl (80-96); MEAN PLT VOLUME 7.1 fl (7.5-11.1); MONO % 10.4 % (3.8-10.2); NEUT % 75.4 % (42.8-82.8); PLATELET COUNT 231 10^3/uL (134-434); RBC 2.76 M/mm3 (4.00-5.60); RDW 14.8 % (11.9-15.9); WHITE BLOOD COUNT 5.9 K/mm3 (4.0-10.0)
[2022-09-27 12:47] LABS: ALBUMIN 2.3 g/dl (3.4-5.0); BLOOD UREA NITROGEN 38.1 mg/dL (7-18); CALCIUM 8.5 mg/dL (8.5-10.1)
[2022-09-27 12:50] LABS: CREATININE 2.1 mg/dL (0.55-1.3)
[2022-09-27 12:52] LABS: BILIRUBIN,TOTAL 0.5 mg/dL (0.2-1); TOT PROT 5.9 g/dl (6.4-8.2)
[2022-09-27] MEDS: ROSUVASTATIN CA 5 MG TABLET PO SCH (22:44)
[2022-09-28] MEDS: INSULIN SLIDING SCALE (NOVOLOG) 1 VIAL SQ SCH ×4 (06:42→22:06)
[2022-09-28] MEDS: FERROUS SO4 325 MG TABLET (FP) PO SCH (10:21)
[2022-09-28] MEDS: TAMSULOSIN HCL 0.4 MG CAP PO SCH (10:21)
[2022-09-28] MEDS: FINASTERIDE 5 MG TABLET (FP) PO SCH (10:21)
[2022-09-28] MEDS: ERTAPENEM SODIUM 0.5 GM in SODIUM CHLORIDE 50 ML IVPB SCH (10:21)
[2022-09-28] MEDS: ISOSORBIDE MONONITRATE 30 MG TAB.SR.24H (FP) PO SCH (10:21)
[2022-09-28] MEDS: METOPROLOL TARTRATE 25 MG TABLET (FP) PO SCH ×2 (10:21→22:18)
[2022-09-28] MEDS: BACITRACIN 15 GM TUBE TOPICAL OINTMENT TP SCH (10:22)
[2022-09-28 11:08] LABS: CALCIUM 8.4 mg/dL (8.5-10.1)
[2022-09-28 11:09] LABS: ALBUMIN 2.4 g/dl (3.4-5.0); BLOOD UREA NITROGEN 35.8 mg/dL (7-18)
[2022-09-28 11:13] LABS: BILIRUBIN,TOTAL 0.4 mg/dL (0.2-1); TOT PROT 6.2 g/dl (6.4-8.2)
[2022-09-28] MEDS: COLLAGENASE CLOSTRIDIUM HIST. 30 GRAMS TUBE TP SCH (12:57)
[2022-09-28] MEDS: SODIUM ZIRCONIUM CYCLOSILICATE (LOKELMA) 5 GM PACKET PO SCH (16:33)
[2022-09-28] MEDS: ACETAMINOPHEN 325 MG TABLET (FP) PO PRN (17:09)
[2022-09-28] MEDS: ROSUVASTATIN CA 5 MG TABLET PO SCH (22:03)
[2022-09-29] MEDS: ACETAMINOPHEN 325 MG TABLET (FP) PO PRN ×2 (01:18→06:18)
[2022-09-29] MEDS: INSULIN SLIDING SCALE (NOVOLOG) 1 VIAL SQ SCH ×2 (06:15→11:25)
[2022-09-29 09:10] VITALS: BP 124/51; PULSE 62; RESP 19; TEMP 97.8
[2022-09-29] MEDS: ERTAPENEM SODIUM 0.5 GM in SODIUM CHLORIDE 50 ML IVPB SCH (09:52)
[2022-09-29] MEDS: SODIUM ZIRCONIUM CYCLOSILICATE (LOKELMA) 5 GM PACKET PO SCH (09:57)
[2022-09-29] MEDS: METOPROLOL TARTRATE 25 MG TABLET (FP) PO SCH (09:57)
[2022-09-29] MEDS: ISOSORBIDE MONONITRATE 30 MG TAB.SR.24H (FP) PO SCH (09:58)
[2022-09-29] MEDS: FINASTERIDE 5 MG TABLET (FP) PO SCH (09:58)
[2022-09-29] MEDS: FERROUS SO4 325 MG TABLET (FP) PO SCH (09:58)
[2022-09-29] MEDS: TAMSULOSIN HCL 0.4 MG CAP PO SCH (09:58)
[2022-09-29 11:01] LABS: BLOOD UREA NITROGEN 36.2 mg/dL (7-18); CALCIUM 8.4 mg/dL (8.5-10.1)
[2022-09-29 11:02] LABS: ALBUMIN 2.3 g/dl (3.4-5.0)
[2022-09-29 11:06] LABS: BILIRUBIN,TOTAL 0.3 mg/dL (0.2-1); TOT PROT 5.9 g/dl (6.4-8.2)
[2022-09-29] MEDS: COLLAGENASE CLOSTRIDIUM HIST. 30 GRAMS TUBE TP SCH (12:24)
[2022-09-29] MEDS: BACITRACIN 15 GM TUBE TOPICAL OINTMENT TP SCH (12:24)
== END 2022-09-29 12:36 | DRG 690 ==
LOC: JER 04:02 → JERBED 11:17 → J6S 19:51
PROVIDERS: ADMIT Family Medicine; ATTEND Family Medicine
DX: N39.0 Urinary tract infection, site not specified (principal); N17.9 Acute kidney failure, unspecified; I45.2 Bifascicular block; N13.30 Unspecified hydronephrosis; I25.10 Atherosclerotic heart disease of native coronary artery without angina pectoris; Z95.1 Presence of aortocoronary bypass graft; D64.9 Anemia, unspecified; E87.5 Hyperkalemia; N40.1 Benign prostatic hyperplasia with lower urinary tract symptoms; R33.8 Other retention of urine; I12.9 Hypertensive chronic kidney disease with stage 1 through stage 4 chronic kidney disease, or unspecified chronic kidney disease; E11.22 Type 2 diabetes mellitus with diabetic chronic kidney disease; N18.9 Chronic kidney disease, unspecified; Z86.16 Personal history of COVID-19; N32.89 Other specified disorders of bladder
CPT/HCPCS: 36415; 74176-TC; 80053; 81003; 82272; 82962; 83036; 83540; 83550; 83605; 83690; 85025; 85610; 85730; 87086; 87186; 93005; 93010; 97116-GP; 97162-GP; 99285-25; C9803-CS; J1756; U0003; U0005

== ENCOUNTER 2022-10-04 10:31 | Emergency (ER) | payer OTHER ==
[2022-10-04 11:08] VITALS: BP 103/58; PULSE 70; RESP 20; TEMP 97.5
[2022-10-04 13:50] LABS: INR 1.08 (0.83-1.09); PROTHROMBIN TIME (PATIENT) 12.4 SEC (9.7-13.0)
[2022-10-04 13:51] LABS: BASO % 0.7 % (0-2.0); EOS % 4.3 % (0-4.5); HEMATOCRIT 25.8 % (35.4-49); HEMOGLOBIN 8.5 GM/dL (11.7-16.9); LYMPH % 13.7 % (8-40); MCH 29.9 pg (25.7-33.7); MCHC 32.9 g/dl (32.0-35.9); MEAN CELL VOLUME 90.8 fl (80-96); MEAN PLT VOLUME 7.4 fl (7.5-11.1); MONO % 8.6 % (3.8-10.2); NEUT % 72.7 % (42.8-82.8); PLATELET COUNT 212 10^3/uL (134-434); RBC 2.84 M/mm3 (4.00-5.60); RDW 14.6 % (11.9-15.9); WHITE BLOOD COUNT 5.5 K/mm3 (4.0-10.0)
[2022-10-04 13:53] LABS: ACTIVATED PTT 29.6 SECONDS (25.2-36.5)
[2022-10-04 14:03] LABS: ALBUMIN 2.6 g/dl (3.4-5.0)
[2022-10-04 14:04] LABS: CALCIUM 8.6 mg/dL (8.5-10.1)
[2022-10-04 14:06] LABS: CREATININE 2.3 mg/dL (0.55-1.3)
[2022-10-04 14:07] LABS: BILIRUBIN,TOTAL 0.2 mg/dL (0.2-1)
[2022-10-04 14:08] LABS: TOT PROT 6.5 g/dl (6.4-8.2)
== END 2022-10-04 15:11 | disposition home or self-care (01) ==
LOC: JER 10:31
DX: R79.89 Other specified abnormal findings of blood chemistry (principal)
CPT/HCPCS: 36415; 80053; 84443; 84484; 85025; 85610; 85730; 86850; 86900; 86901; 99284-25

== ENCOUNTER 2022-10-13 14:45 | Inpatient (IN) | payer OTHER ==
[2022-10-13] MEDS ORDERED: LACTATED RINGERS SOLUTION 1000 ML INFUS.BAG IV ONE (15:51)
[2022-10-13 16:09] LABS: BASO % 0.5 % (0-2.0); HEMATOCRIT 24.5 % (35.4-49); HEMOGLOBIN 8.1 GM/dL (11.7-16.9); LYMPH % 7.5 % (8-40); MCH 30.6 pg (25.7-33.7); MEAN CELL VOLUME 92.6 fl (80-96); MEAN PLT VOLUME 8.4 fl (7.5-11.1); MONO % 15.2 % (3.8-10.2); NEUT % 75.8 % (42.8-82.8); PLATELET COUNT 135 10^3/uL (134-434); RBC 2.64 M/mm3 (4.00-5.60); RDW 15.8 % (11.9-15.9); WHITE BLOOD COUNT 6.3 K/mm3 (4.0-10.0)
[2022-10-13 16:13] LABS: INR 1.21 (0.83-1.09); PROTHROMBIN TIME (PATIENT) 13.9 SEC (9.7-13.0)
[2022-10-13 16:16] LABS: ACTIVATED PTT 36.1 SECONDS (25.2-36.5)
[2022-10-13 16:20] LABS: CALCIUM 7.7 mg/dL (8.5-10.1)
[2022-10-13 16:21] LABS: ALBUMIN 2.2 g/dl (3.4-5.0); BLOOD UREA NITROGEN 60.6 mg/dL (7-18)
[2022-10-13 16:24] LABS: CREATININE 2.6 mg/dL (0.55-1.3)
[2022-10-13 16:25] LABS: BILIRUBIN,TOTAL 0.2 mg/dL (0.2-1); TOT PROT 5.6 g/dl (6.4-8.2)
[2022-10-13 17:34] LABS: EPI CELLS >36 /uL (0-25.1); HYALINE CASTS 89 /uL (0-3.1); PH,URINE 5.5 (5.0-8.0); URINE APPEARANCE TURBID; URINE BACTERIA 2094 /uL (0-1359); URINE BILIRUBIN NEGATIVE (NEGATIVE); URINE COLOR RED; URINE GLUCOSE (UA) NEGATIVE (NEGATIVE); URINE KETONE NEGATIVE (NEGATIVE); URINE LEUK ESTERASE 3+ (NEGATIVE); URINE NITRITE POSITIVE (NEGATIVE); URINE PROTEIN 4+ (NEGATIVE); URINE UROBILINOGEN 0.2 mg/dL (0.2-1.0); URINE WBC 10754 /uL (0-25.8)
[2022-10-13] MEDS ORDERED: AMPICILLIN - 2 GM in SODIUM CHLORIDE 100 ML IVPB ONE (17:53)
[2022-10-13] MEDS ORDERED: MEROPENEM 1 GM in DEXTROSE 5%-WATER 100 ML IVPB ONE (17:53)
[2022-10-13 18:07] LABS: URINE RBC 22376.6 /uL (0-23.9); YEAST FEW (NEGATIVE)
[2022-10-13] MEDS ORDERED: MEROPENEM 1 GM VIAL (RESTRICTED TO ID) IVPB ONE (18:32)
[2022-10-13] MEDS ORDERED: DEXTROSE 5%-WATER 100 ML IVPB ONE (18:33)
[2022-10-13] MEDS ORDERED: ACETAMINOPHEN 1000 MG/100 ML BAG IVPB ONE (23:39)
[2022-10-13] MEDS ORDERED: ACETAMINOPHEN INJECTION 100 ML IVPB ONE (23:54)
[2022-10-14] MEDS: AMPICILLIN - 2 GM in SODIUM CHLORIDE 100 ML IVPB SCH ×3 (04:33→14:14)
[2022-10-14] MEDS ORDERED: MEROPENEM 1 GM in DEXTROSE 5%-WATER 100 ML IVPB SCH (06:00)
[2022-10-14] MEDS ORDERED: MEROPENEM 1 GM VIAL (RESTRICTED TO ID) IVPB ONE (06:31)
[2022-10-14] MEDS ORDERED: AMPICILLIN SODIUM 2 GM VIAL ONE ×3 (06:31→08:29)
[2022-10-14 07:39] LABS: BASO % 0.4 % (0-2.0); EOS % 3.4 % (0-4.5); HEMATOCRIT 24.8 % (35.4-49); HEMOGLOBIN 8.1 GM/dL (11.7-16.9); LYMPH % 9.6 % (8-40); MCH 30.3 pg (25.7-33.7); MCHC 32.7 g/dl (32.0-35.9); MEAN CELL VOLUME 92.5 fl (80-96); MEAN PLT VOLUME 8.2 fl (7.5-11.1); NEUT % 74.6 % (42.8-82.8); PLATELET COUNT 126 10^3/uL (134-434); RBC 2.68 M/mm3 (4.00-5.60); WHITE BLOOD COUNT 4.6 K/mm3 (4.0-10.0)
[2022-10-14] MEDS: INSULIN SLIDING SCALE (NOVOLOG) 1 VIAL SQ SCH ×4 (07:52→22:20)
[2022-10-14 07:58] LABS: BLOOD UREA NITROGEN 56.2 mg/dL (7-18)
[2022-10-14 08:01] LABS: CREATININE 2.4 mg/dL (0.55-1.3)
[2022-10-14 08:02] LABS: PHOSPHOROUS 3.3 mg/dL (2.5-4.9)
[2022-10-14] MEDS ORDERED: CALAMINE 8% TOPICAL LOTION 177 ML BOTTLE TP PRN (09:58)
[2022-10-14] MEDS ORDERED: FERROUS SO4 325 MG TABLET (FP) PO SCH (10:00)
[2022-10-14] MEDS: MULTIVITAMINS THER W-MINERALS COMBO TABLET (FP) PO SCH (11:07)
[2022-10-14] MEDS: FOLIC ACID 1 MG TABLET (FP) PO SCH (11:07)
[2022-10-14] MEDS: ISOSORBIDE MONONITRATE 30 MG TAB.SR.24H (FP) PO SCH (11:07)
[2022-10-14] MEDS: ASPIRIN COATED 81 MG TABLET.EC PO SCH (11:07)
[2022-10-14] MEDS: FERROUS SO4 325 MG TABLET (FP) PO SCH (11:07)
[2022-10-14] MEDS: ASCORBIC ACID 500 MG TABLET (FP) PO SCH (11:07)
[2022-10-14 14:45] LABS: N-TERMINAL BNP 6436.1 pg/ml (5-450)
[2022-10-14 15:02] VITALS: BMI 23.1
[2022-10-14] MEDS: MEROPENEM 1 GM in DEXTROSE 5%-WATER 100 ML IVPB SCH (15:24)
[2022-10-14] MEDS: ERTAPENEM SODIUM 0.5 GM in SODIUM CHLORIDE 50 ML IVPB SCH (18:57)
[2022-10-14] MEDS: METOPROLOL TARTRATE 25 MG TABLET (FP) PO SCH (22:15)
[2022-10-14] MEDS: ROSUVASTATIN CA 5 MG TABLET PO SCH (22:15)
[2022-10-14] MEDS: OSELTAMIVIR PHOSPHATE 30 MG CAPSULE PO SCH (22:23)
[2022-10-15] MEDS: INSULIN SLIDING SCALE (NOVOLOG) 1 VIAL SQ SCH ×4 (08:36→21:49)
[2022-10-15] MEDS: OSELTAMIVIR PHOSPHATE 30 MG CAPSULE PO SCH ×2 (11:03→22:41)
[2022-10-15] MEDS: TAMSULOSIN HCL 0.4 MG CAP PO SCH (11:03)
[2022-10-15] MEDS: METOPROLOL TARTRATE 25 MG TABLET (FP) PO SCH ×2 (11:03→22:41)
[2022-10-15] MEDS: PANTOPRAZOLE 40 MG TABLET PO SCH (11:03)
[2022-10-15] MEDS: FOLIC ACID 1 MG TABLET (FP) PO SCH (11:04)
[2022-10-15] MEDS: ASPIRIN COATED 81 MG TABLET.EC PO SCH (11:04)
[2022-10-15] MEDS: MULTIVITAMINS THER W-MINERALS COMBO TABLET (FP) PO SCH (11:04)
[2022-10-15] MEDS: FERROUS SO4 325 MG TABLET (FP) PO SCH (11:04)
[2022-10-15] MEDS: ISOSORBIDE MONONITRATE 30 MG TAB.SR.24H (FP) PO SCH (11:04)
[2022-10-15] MEDS: ERTAPENEM SODIUM 0.5 GM in SODIUM CHLORIDE 50 ML IVPB SCH (11:04)
[2022-10-15] MEDS: ASCORBIC ACID 500 MG TABLET (FP) PO SCH (11:04)
[2022-10-15] MEDS ORDERED: IRON SUCROSE INJECTION 200 MG in SODIUM CHLORIDE 90 ML IVPB ONE (16:07)
[2022-10-15] MEDS ORDERED: INSULIN (NOVOLOG) ASPART 100 UNITS/ML 10ML VIAL ONE (17:56)
[2022-10-15] MEDS: ROSUVASTATIN CA 5 MG TABLET PO SCH (22:41)
[2022-10-16] MEDS: INSULIN SLIDING SCALE (NOVOLOG) 1 VIAL SQ SCH ×3 (07:43→18:10)
[2022-10-16] MEDS: MULTIVITAMINS THER W-MINERALS COMBO TABLET (FP) PO SCH (10:13)
[2022-10-16] MEDS: ASPIRIN COATED 81 MG TABLET.EC PO SCH (10:13)
[2022-10-16] MEDS: ISOSORBIDE MONONITRATE 30 MG TAB.SR.24H (FP) PO SCH (10:13)
[2022-10-16] MEDS: PANTOPRAZOLE 40 MG TABLET PO SCH (10:13)
[2022-10-16] MEDS: TAMSULOSIN HCL 0.4 MG CAP PO SCH (10:13)
[2022-10-16] MEDS: METOPROLOL TARTRATE 25 MG TABLET (FP) PO SCH ×2 (10:13→22:31)
[2022-10-16] MEDS: FERROUS SO4 325 MG TABLET (FP) PO SCH (10:13)
[2022-10-16] MEDS: FOLIC ACID 1 MG TABLET (FP) PO SCH (10:13)
[2022-10-16] MEDS: OSELTAMIVIR PHOSPHATE 30 MG CAPSULE PO SCH ×2 (10:13→22:29)
[2022-10-16] MEDS: ERTAPENEM SODIUM 0.5 GM in SODIUM CHLORIDE 50 ML IVPB SCH (10:14)
[2022-10-16] MEDS: ASCORBIC ACID 500 MG TABLET (FP) PO SCH (10:14)
[2022-10-16] MEDS: ROSUVASTATIN CA 5 MG TABLET PO SCH (22:29)
[2022-10-17] MEDS: INSULIN SLIDING SCALE (NOVOLOG) 1 VIAL SQ SCH ×5 (01:06→21:27)
[2022-10-17 08:46] LABS: BASO % 0.4 % (0-2.0); EOS % 8.2 % (0-4.5); HEMATOCRIT 23.6 % (35.4-49); HEMOGLOBIN 7.9 GM/dL (11.7-16.9); LYMPH % 25.2 % (8-40); MCH 30.5 pg (25.7-33.7); MCHC 33.5 g/dl (32.0-35.9); MEAN CELL VOLUME 90.9 fl (80-96); MEAN PLT VOLUME 7.7 fl (7.5-11.1); MONO % 14.2 % (3.8-10.2); PLATELET COUNT 147 10^3/uL (134-434); RBC 2.59 M/mm3 (4.00-5.60); RDW 15.5 % (11.9-15.9); WHITE BLOOD COUNT 2.9 K/mm3 (4.0-10.0)
[2022-10-17 09:13] LABS: CALCIUM 7.8 mg/dL (8.5-10.1)
[2022-10-17 09:14] LABS: BLOOD UREA NITROGEN 42.9 mg/dL (7-18)
[2022-10-17] MEDS: ERTAPENEM SODIUM 0.5 GM in SODIUM CHLORIDE 50 ML IVPB SCH (09:14)
[2022-10-17] MEDS: OSELTAMIVIR PHOSPHATE 30 MG CAPSULE PO SCH ×2 (09:15→21:28)
[2022-10-17] MEDS: METOPROLOL TARTRATE 25 MG TABLET (FP) PO SCH ×2 (09:15→21:25)
[2022-10-17] MEDS: FERROUS SO4 325 MG TABLET (FP) PO SCH (09:16)
[2022-10-17] MEDS: PANTOPRAZOLE 40 MG TABLET PO SCH (09:16)
[2022-10-17 09:17] LABS: CREATININE 2.3 mg/dL (0.55-1.3)
[2022-10-17] MEDS: FOLIC ACID 1 MG TABLET (FP) PO SCH (09:18)
[2022-10-17] MEDS: ASCORBIC ACID 500 MG TABLET (FP) PO SCH (09:18)
[2022-10-17] MEDS: MULTIVITAMINS THER W-MINERALS COMBO TABLET (FP) PO SCH (09:19)
[2022-10-17] MEDS: ASPIRIN COATED 81 MG TABLET.EC PO SCH (09:36)
[2022-10-17] MEDS: TAMSULOSIN HCL 0.4 MG CAP PO SCH (09:36)
[2022-10-17] MEDS: ISOSORBIDE MONONITRATE 30 MG TAB.SR.24H (FP) PO SCH (09:37)
[2022-10-17] MEDS: ROSUVASTATIN CA 5 MG TABLET PO SCH (21:24)
[2022-10-18] MEDS: INSULIN SLIDING SCALE (NOVOLOG) 1 VIAL SQ SCH ×4 (06:40→21:37)
[2022-10-18] MEDS: MEROPENEM 1 GM in DEXTROSE 5%-WATER 100 ML IVPB SCH (07:37)
[2022-10-18] MEDS: OSELTAMIVIR PHOSPHATE 30 MG CAPSULE PO SCH (10:42)
[2022-10-18] MEDS: TAMSULOSIN HCL 0.4 MG CAP PO SCH (10:42)
[2022-10-18] MEDS: ERTAPENEM SODIUM 0.5 GM in SODIUM CHLORIDE 50 ML IVPB SCH (10:42)
[2022-10-18] MEDS: ASPIRIN COATED 81 MG TABLET.EC PO SCH (10:42)
[2022-10-18] MEDS: PANTOPRAZOLE 40 MG TABLET PO SCH (10:42)
[2022-10-18] MEDS: MULTIVITAMINS THER W-MINERALS COMBO TABLET (FP) PO SCH (10:42)
[2022-10-18] MEDS: FOLIC ACID 1 MG TABLET (FP) PO SCH (10:42)
[2022-10-18] MEDS: FERROUS SO4 325 MG TABLET (FP) PO SCH (10:42)
[2022-10-18] MEDS: METOPROLOL TARTRATE 25 MG TABLET (FP) PO SCH ×2 (10:42→21:30)
[2022-10-18] MEDS: ISOSORBIDE MONONITRATE 30 MG TAB.SR.24H (FP) PO SCH (10:42)
[2022-10-18] MEDS: ASCORBIC ACID 500 MG TABLET (FP) PO SCH (10:42)
[2022-10-18] MEDS: guaiFENesin/D-M SUGAR-FREE/ACLHOL-FREE 118 ML BOTTLE PO PRN (10:43)
[2022-10-18 10:55] LABS: BASO % 0.6 % (0-2.0); EOS % 8.4 % (0-4.5); HEMATOCRIT 25.7 % (35.4-49); HEMOGLOBIN 8.5 GM/dL (11.7-16.9); LYMPH % 22.3 % (8-40); MCH 30.3 pg (25.7-33.7); MEAN CELL VOLUME 91.8 fl (80-96); MEAN PLT VOLUME 7.5 fl (7.5-11.1); MONO % 11.6 % (3.8-10.2); NEUT % 57.1 % (42.8-82.8); PLATELET COUNT 159 10^3/uL (134-434); RDW 15.5 % (11.9-15.9); WHITE BLOOD COUNT 3.6 K/mm3 (4.0-10.0)
[2022-10-18 11:23] LABS: BLOOD UREA NITROGEN 36.4 mg/dL (7-18); CALCIUM 7.8 mg/dL (8.5-10.1)
[2022-10-18 11:26] LABS: CREATININE 2.3 mg/dL (0.55-1.3)
[2022-10-18] MEDS ORDERED: INSULIN (NOVOLOG) ASPART 100 UNITS/ML 10ML VIAL ONE (12:20)
[2022-10-18] MEDS: ROSUVASTATIN CA 5 MG TABLET PO SCH (21:30)
[2022-10-19] MEDS: INSULIN SLIDING SCALE (NOVOLOG) 1 VIAL SQ SCH ×4 (06:14→23:18)
[2022-10-19] MEDS ORDERED: REMDESIVIR 200 MG in SODIUM CHLORIDE 250 ML IVPB ONE ×2 (10:00→12:00)
[2022-10-19] MEDS: FERROUS SO4 325 MG TABLET (FP) PO SCH (10:34)
[2022-10-19] MEDS: TAMSULOSIN HCL 0.4 MG CAP PO SCH (10:34)
[2022-10-19] MEDS: METOPROLOL TARTRATE 25 MG TABLET (FP) PO SCH ×2 (10:34→23:13)
[2022-10-19] MEDS: ASCORBIC ACID 500 MG TABLET (FP) PO SCH (10:34)
[2022-10-19] MEDS: PANTOPRAZOLE 40 MG TABLET PO SCH (10:34)
[2022-10-19] MEDS: ERTAPENEM SODIUM 0.5 GM in SODIUM CHLORIDE 50 ML IVPB SCH (10:34)
[2022-10-19] MEDS: ISOSORBIDE MONONITRATE 30 MG TAB.SR.24H (FP) PO SCH (10:34)
[2022-10-19] MEDS: FOLIC ACID 1 MG TABLET (FP) PO SCH (10:34)
[2022-10-19] MEDS: ASPIRIN COATED 81 MG TABLET.EC PO SCH (10:34)
[2022-10-19] MEDS: MULTIVITAMINS THER W-MINERALS COMBO TABLET (FP) PO SCH (10:35)
[2022-10-19] MEDS: ROSUVASTATIN CA 5 MG TABLET PO SCH (23:13)
[2022-10-20] MEDS: INSULIN SLIDING SCALE (NOVOLOG) 1 VIAL SQ SCH ×4 (06:21→22:59)
[2022-10-20] MEDS: ASCORBIC ACID 500 MG TABLET (FP) PO SCH (10:56)
[2022-10-20] MEDS: FOLIC ACID 1 MG TABLET (FP) PO SCH (10:56)
[2022-10-20] MEDS: FERROUS SO4 325 MG TABLET (FP) PO SCH (10:56)
[2022-10-20] MEDS: METOPROLOL TARTRATE 25 MG TABLET (FP) PO SCH ×2 (10:56→22:50)
[2022-10-20] MEDS: PANTOPRAZOLE 40 MG TABLET PO SCH (10:56)
[2022-10-20] MEDS: ASPIRIN COATED 81 MG TABLET.EC PO SCH (10:56)
[2022-10-20] MEDS: MULTIVITAMINS THER W-MINERALS COMBO TABLET (FP) PO SCH (10:56)
[2022-10-20] MEDS: TAMSULOSIN HCL 0.4 MG CAP PO SCH (10:57)
[2022-10-20] MEDS: ERTAPENEM SODIUM 0.5 GM in SODIUM CHLORIDE 50 ML IVPB SCH (10:57)
[2022-10-20] MEDS: ISOSORBIDE MONONITRATE 30 MG TAB.SR.24H (FP) PO SCH (10:57)
[2022-10-20] MEDS: guaiFENesin/D-M SUGAR-FREE/ACLHOL-FREE 118 ML BOTTLE PO PRN (10:57)
[2022-10-20] MEDS: REMDESIVIR 100 MG in SODIUM CHLORIDE 250 ML IVPB SCH (12:28)
[2022-10-20 13:04] LABS: HEMOGLOBIN 9.3 GM/dL (11.7-16.9); RBC 3.06 M/mm3 (4.00-5.60)
[2022-10-20 13:05] LABS: HEMATOCRIT 28.1 % (35.4-49); MCH 30.5 pg (25.7-33.7); MCHC 33.3 g/dl (32.0-35.9); MEAN CELL VOLUME 91.8 fl (80-96); MEAN PLT VOLUME 7.3 fl (7.5-11.1); PLATELET COUNT 178 10^3/uL (134-434); RDW 15.2 % (11.9-15.9)
[2022-10-20 13:32] LABS: BLOOD UREA NITROGEN 38.2 mg/dL (7-18); CALCIUM 7.9 mg/dL (8.5-10.1); MAGNESIUM 2.1 mg/dL (1.8-2.4)
[2022-10-20] MEDS: ROSUVASTATIN CA 5 MG TABLET PO SCH (22:50)
[2022-10-21] MEDS: INSULIN SLIDING SCALE (NOVOLOG) 1 VIAL SQ SCH ×4 (06:30→22:35)
[2022-10-21] MEDS: TAMSULOSIN HCL 0.4 MG CAP PO SCH (08:59)
[2022-10-21] MEDS: ASPIRIN COATED 81 MG TABLET.EC PO SCH (10:59)
[2022-10-21] MEDS: FERROUS SO4 325 MG TABLET (FP) PO SCH (10:59)
[2022-10-21] MEDS: PANTOPRAZOLE 40 MG TABLET PO SCH (10:59)
[2022-10-21] MEDS: ERTAPENEM SODIUM 0.5 GM in SODIUM CHLORIDE 50 ML IVPB SCH (10:59)
[2022-10-21] MEDS: ISOSORBIDE MONONITRATE 30 MG TAB.SR.24H (FP) PO SCH (10:59)
[2022-10-21] MEDS: FOLIC ACID 1 MG TABLET (FP) PO SCH (10:59)
[2022-10-21] MEDS: ASCORBIC ACID 500 MG TABLET (FP) PO SCH (10:59)
[2022-10-21] MEDS: METOPROLOL TARTRATE 25 MG TABLET (FP) PO SCH ×2 (10:59→22:22)
[2022-10-21] MEDS: MULTIVITAMINS THER W-MINERALS COMBO TABLET (FP) PO SCH (10:59)
[2022-10-21] MEDS: REMDESIVIR 100 MG in SODIUM CHLORIDE 250 ML IVPB SCH (11:45)
[2022-10-21] MEDS: ROSUVASTATIN CA 5 MG TABLET PO SCH (22:22)
[2022-10-22 06:01] VITALS: BP 136/58; PULSE 56; RESP 18; TEMP 97.5
[2022-10-22] MEDS: INSULIN SLIDING SCALE (NOVOLOG) 1 VIAL SQ SCH ×2 (06:35→12:30)
[2022-10-22] MEDS: METOPROLOL TARTRATE 25 MG TABLET (FP) PO SCH (10:38)
[2022-10-22] MEDS: TAMSULOSIN HCL 0.4 MG CAP PO SCH (10:38)
[2022-10-22] MEDS: ASCORBIC ACID 500 MG TABLET (FP) PO SCH (10:39)
[2022-10-22] MEDS: ISOSORBIDE MONONITRATE 30 MG TAB.SR.24H (FP) PO SCH (10:39)
[2022-10-22] MEDS: MULTIVITAMINS THER W-MINERALS COMBO TABLET (FP) PO SCH (10:39)
[2022-10-22] MEDS: PANTOPRAZOLE 40 MG TABLET PO SCH (10:39)
[2022-10-22] MEDS: FOLIC ACID 1 MG TABLET (FP) PO SCH (10:39)
[2022-10-22] MEDS: ASPIRIN COATED 81 MG TABLET.EC PO SCH (10:39)
[2022-10-22] MEDS: FERROUS SO4 325 MG TABLET (FP) PO SCH (10:39)
== END 2022-10-22 14:41 | DRG 689 ==
LOC: JER 14:45 → JERBED 17:36 → J8W 10-14 09:35
PROVIDERS: ADMIT Internal Medicine; ATTEND Family Medicine
PROC: XW033E5 Introduction of Remdesivir Anti-infective into Peripheral Vein, Percutaneous Approach, New Technology Group 5 (ICD-10-PCS; principal; 2022-10-19)
DX: N39.0 Urinary tract infection, site not specified (principal); U07.1 COVID-19; N17.9 Acute kidney failure, unspecified; I45.2 Bifascicular block; I25.10 Atherosclerotic heart disease of native coronary artery without angina pectoris; N40.0 Benign prostatic hyperplasia without lower urinary tract symptoms; D64.9 Anemia, unspecified; R09.02 Hypoxemia; I12.9 Hypertensive chronic kidney disease with stage 1 through stage 4 chronic kidney disease, or unspecified chronic kidney disease; E11.22 Type 2 diabetes mellitus with diabetic chronic kidney disease; N18.9 Chronic kidney disease, unspecified; C67.9 Malignant neoplasm of bladder, unspecified; F03.90 Unspecified dementia, unspecified severity, without behavioral disturbance, psychotic disturbance, mood disturbance, and anxiety; J10.1 Influenza due to other identified influenza virus with other respiratory manifestations; B96.1 Klebsiella pneumoniae [K. pneumoniae] as the cause of diseases classified elsewhere; Z85.51 Personal history of malignant neoplasm of bladder; Z95.1 Presence of aortocoronary bypass graft
CPT/HCPCS: 0241U-QW; 36415; 71045-TC-FY; 76775-TC; 76857; 80048; 80053; 81003; 82728; 82962; 83540; 83550; 83735; 83880; 84100; 85025; 85027; 85610; 85730; 87040; 87086; 87186; 93005; 93010; 97116-GP; 99285-25; C9399; C9803-CS; J1756; U0003; U0005

== ENCOUNTER 2023-02-01 16:20 | Inpatient (IN) | payer OTHER ==
[2023-02-01 18:51] LABS: BASO % 0.7 % (0-2.0); EOS % 5.5 % (0-4.5); HEMATOCRIT 20.7 % (35.4-49); HEMOGLOBIN 7.1 GM/dL (11.7-16.9); LYMPH % 9.1 % (8-40); MCH 33.3 pg (25.7-33.7); MCHC 34.5 g/dl (32.0-35.9); MEAN CELL VOLUME 96.6 fl (80-96); MEAN PLT VOLUME 7.4 fl (7.5-11.1); NEUT % 73.7 % (42.8-82.8); PLATELET COUNT 172 10^3/uL (134-434); RBC 2.14 M/mm3 (4.00-5.60); RDW 14.2 % (11.9-15.9); WHITE BLOOD COUNT 6.2 K/mm3 (4.0-10.0)
[2023-02-01 19:18] LABS: CALCIUM 8.6 mg/dL (8.5-10.1)
[2023-02-01 19:19] LABS: ALBUMIN 2.7 g/dl (3.4-5.0); BLOOD UREA NITROGEN 97.4 mg/dL (7-18)
[2023-02-01 19:22] LABS: CREATININE 3.5 mg/dL (0.55-1.3)
[2023-02-01 19:24] LABS: BILIRUBIN,TOTAL 0.2 mg/dL (0.2-1); TOT PROT 6.3 g/dl (6.4-8.2)
[2023-02-01 21:50] LABS: BASO % 0.3 % (0-2.0); EOS % 5.1 % (0-4.5); HEMATOCRIT 19.8 % (35.4-49); LYMPH % 11.7 % (8-40); MCH 33.1 pg (25.7-33.7); MEAN CELL VOLUME 97.2 fl (80-96); MEAN PLT VOLUME 7.8 fl (7.5-11.1); MONO % 11.3 % (3.8-10.2); NEUT % 71.6 % (42.8-82.8); PLATELET COUNT 174 10^3/uL (134-434); RBC 2.04 M/mm3 (4.00-5.60); RDW 14.3 % (11.9-15.9); WHITE BLOOD COUNT 5.8 K/mm3 (4.0-10.0)
[2023-02-01 21:52] LABS: EPI CELLS 1 /uL (0-25.1); HYALINE CASTS 0 /uL (0-3.1); PH,URINE 5.5 (5.0-8.0); URINE APPEARANCE CLEAR; URINE BACTERIA 109 /uL (0-1359); URINE BILIRUBIN NEGATIVE (NEGATIVE); URINE COLOR YELLOW; URINE GLUCOSE (UA) NEGATIVE (NEGATIVE); URINE KETONE NEGATIVE (NEGATIVE); URINE LEUK ESTERASE 3+ (NEGATIVE); URINE NITRITE NEGATIVE (NEGATIVE); URINE PROTEIN NEGATIVE (NEGATIVE); URINE RBC 962 /uL (0-23.9); URINE UROBILINOGEN 0.2 mg/dL (0.2-1.0); URINE WBC 165 /uL (0-25.8)
[2023-02-01 21:58] LABS: HEMOGLOBIN 6.7 GM/dL (11.7-16.9)
[2023-02-01] MEDS ORDERED: ROSUVASTATIN CA 5 MG TABLET PO SCH (22:00)
[2023-02-02] MEDS ORDERED: INSULIN SLIDING SCALE (NOVOLOG) 1 VIAL SQ SCH (07:00)
[2023-02-02] MEDS ORDERED: TAMSULOSIN HCL 0.4 MG CAP PO SCH (08:30)
[2023-02-02 08:37] LABS: BASO % 0.5 % (0-2.0); EOS % 5.7 % (0-4.5); HEMATOCRIT 28.5 % (35.4-49); LYMPH % 10.1 % (8-40); MCH 32.4 pg (25.7-33.7); MEAN CELL VOLUME 92.5 fl (80-96); MEAN PLT VOLUME 7.6 fl (7.5-11.1); NEUT % 73.7 % (42.8-82.8); PLATELET COUNT 156 10^3/uL (134-434); RBC 3.08 M/mm3 (4.00-5.60); RDW 17.8 % (11.9-15.9); WHITE BLOOD COUNT 5.7 K/mm3 (4.0-10.0)
[2023-02-02 08:51] LABS: CALCIUM 8.8 mg/dL (8.5-10.1)
[2023-02-02 08:52] LABS: ALBUMIN 2.8 g/dl (3.4-5.0); BLOOD UREA NITROGEN 94.7 mg/dL (7-18); MAGNESIUM 2.2 mg/dL (1.8-2.4)
[2023-02-02 08:55] LABS: CREATININE 3.2 mg/dL (0.55-1.3); PHOSPHOROUS 4.6 mg/dL (2.5-4.9)
[2023-02-02 08:56] LABS: TOT PROT 6.6 g/dl (6.4-8.2)
[2023-02-02 08:57] LABS: BILIRUBIN,TOTAL 0.7 mg/dL (0.2-1)
[2023-02-02] MEDS ORDERED: FERROUS SO4 325 MG TABLET (FP) PO SCH (10:00)
[2023-02-02] MEDS ORDERED: PANTOPRAZOLE 40 MG TABLET PO SCH (10:00)
[2023-02-02] MEDS ORDERED: MIRTAZAPINE 15 MG TABLET (FP) ONE (10:04)
[2023-02-02] MEDS: MIRTAZAPINE 15 MG TABLET (FP) PO SCH (10:05)
[2023-02-03 05:44] VITALS: BMI 21.1
[2023-02-03] MEDS: TAMSULOSIN HCL 0.4 MG CAP PO SCH (10:05)
[2023-02-03] MEDS: MIRTAZAPINE 15 MG TABLET (FP) PO SCH (10:07)
[2023-02-04] MEDS: TAMSULOSIN HCL 0.4 MG CAP PO SCH (09:41)
[2023-02-04] MEDS: MIRTAZAPINE 15 MG TABLET (FP) PO SCH (09:41)
[2023-02-05] MEDS: TAMSULOSIN HCL 0.4 MG CAP PO SCH (08:44)
[2023-02-05] MEDS: MIRTAZAPINE 15 MG TABLET (FP) PO SCH (10:06)
[2023-02-05 13:55] VITALS: RESP 20
[2023-02-06] MEDS: TAMSULOSIN HCL 0.4 MG CAP PO SCH (09:55)
[2023-02-06] MEDS: MIRTAZAPINE 15 MG TABLET (FP) PO SCH (09:55)
[2023-02-07 01:18] VITALS: BP 99/48; PULSE 68; TEMP 97.7
[2023-02-07] MEDS ORDERED: MIRTAZAPINE 15 MG TABLET (FP) PO SCH (07:42)
[2023-02-07] MEDS: TAMSULOSIN HCL 0.4 MG CAP PO SCH (09:49)
== END 2023-02-07 11:54 | disposition home health service (06) | DRG 687 ==
LOC: JER 16:20 → JERBED 20:21 → INTOOBSV 20:21 → OBSVTOIN 20:21 → J8W 02-03 02:09
PROVIDERS: ADMIT Internal Medicine; ATTEND Nurse Practitioner Acute Care
PROC: 30233N1 Transfusion of Nonautologous Red Blood Cells into Peripheral Vein, Percutaneous Approach (ICD-10-PCS; principal; 2023-02-01)
DX: C67.9 Malignant neoplasm of bladder, unspecified (principal); D62 Acute posthemorrhagic anemia; N18.4 Chronic kidney disease, stage 4 (severe); N39.0 Urinary tract infection, site not specified; N17.9 Acute kidney failure, unspecified; I25.10 Atherosclerotic heart disease of native coronary artery without angina pectoris; N40.0 Benign prostatic hyperplasia without lower urinary tract symptoms; I12.9 Hypertensive chronic kidney disease with stage 1 through stage 4 chronic kidney disease, or unspecified chronic kidney disease; E11.22 Type 2 diabetes mellitus with diabetic chronic kidney disease; F32.A Depression, unspecified; B96.1 Klebsiella pneumoniae [K. pneumoniae] as the cause of diseases classified elsewhere; B96.4 Proteus (mirabilis) (morganii) as the cause of diseases classified elsewhere; D63.0 Anemia in neoplastic disease; I95.1 Orthostatic hypotension; F03.90 Unspecified dementia, unspecified severity, without behavioral disturbance, psychotic disturbance, mood disturbance, and anxiety; N32.89 Other specified disorders of bladder; Z66 Do not resuscitate; Z95.1 Presence of aortocoronary bypass graft
CPT/HCPCS: 0241U-QW; 36415; 36430; 71045-TC-FY; 80053; 81003; 82962; 83735; 84100; 85025; 86850; 86900; 86901; 86922; 87086; 87186; 93005; 93010; 99285-25; P9058